=== PATIENT | male | born 1975 | race Hispanic/Latino ===

== ENCOUNTER → 2019-07-15 | Day surgery (SDC) | payer BC ==
[2019-07-14 16:19] LABS: BASOPHILS # (AUTO) 0.1 (0.0-0.1); EOSINOPHILS # (AUTO) 0.3 (0.0-0.4); EOSINOPHILS % 2.8 % (0.0-6.0); HEMATOCRIT 41.6 % (38.2-49.6); LYMPHOCYTES # (AUTO) 3.2 (1.0-3.2); LYMPHOCYTES % 29.5 % (18.0-39.1); MEAN CORPUSCULAR HEMOGLOBIN 28.9 pg (28-32); MEAN CORPUSCULAR HGB CONC 33.7 g/dL (31-35); MONOCYTES # (AUTO) 0.8 (0.2-0.8); MONOCYTES % 6.9 % (4.4-11.3); NEUTROPHILS # (AUTO) 6.5 (2.1-6.9); NEUTROPHILS % 59.5 % (38.7-80.0); PLATELET COUNT 292 x10e3/uL (140-360); RED BLOOD COUNT 4.84 x10e6/uL (4.3-5.7); RED CELL DISTRIBUTION WIDTH 13.2 % (11.7-14.4)
[~2019-07-15] MED LIST: BUPIVACAINE HCL 0.5% INJ 30 ML VIAL INJ ONE; DEXAMETHASONE SOD PHOS INJ 4 MG/ML VIAL ONE; FENTANYL CITRATE/PF 100MCG/2 ML INJ ONE; JARDANCE PO; LANTUS100 UNITS/ SQ; LIDOCAINE HCL 2% LOCAL INJ 5 ML SDV VIAL INJ ONE; METFORMIN HCL1000 MG PO; MIDAZOLAM HCL 2 MG/2 ML VIAL ONE; NEOSTIGMINE 1 MG/ML 10ML VIAL ONE; ONDANSETRON HCL INJ 2MG/ML 2ML 2 MG/ML VIAL ONE; PHENYLEPHRINE HCL 1% 10 MG/ML VIAL ONE; PROPOFOL IV EMULSION 10 MG/ML 20 ML VIAL ONE; SEVOFLURANE INHAL SOLN 250 ML PEN BTL ONE; TYLENOL WITH C1 EACH PO; [UNRECOGNIZED DRUG - REMARK] IV
--- OUTSIDE RECORDS SUMMARY | 2019-07-15 07:21 | XMS REPORT | Summary of Care ---
Author Author [facility] Organization [facility] Address Unknown Phone Unavailable Encounter HQ Encntr_alias(FIN) [id number] Date(s): 08/17/18 - 08/17/18 [facility] [address] [place] [address]- [phone] Discharge Disposition: Home or Self Care Attending Physician: Nato Tejeda MD Referring Physician: Robina Turner MD Vital Signs No data available for this section Problem List Condition Effective Dates Status Health Status Informant Bilateral back Active pain(Confirmed) Diabetes(Confirmed) Resolved Allergies, Adverse Reactions, Alerts Substance Reaction Severity Status NKDA Active Medications No data available for this section Results No data available for this section Immunizations No data available for this section Procedures Procedure Date Related Diagnosis Body Site Status Back fusion Completed Social History Social History Type Response Alcohol Current Smoking Status Current every day smoker; Type: Cigarettes; Exposure to Tobacco Smoke None; Cigarette Smoking Last 365 Days Yes; Reg Smoking Cessation Counseling No entered on: 12/01/18 Assessment and Plan No data available for this section
--- OUTSIDE RECORDS SUMMARY | 2019-07-15 07:21 | XMS REPORT | Continuity of Care Document ---
Author Author [employer] Address Unknown Phone Unavailable Care Team Providers Care Tea And Spice Supervisor Name Role Phone [employer] [facility] Unavailable Unavailable Problems Problem Status Onset Date Classification Date Reported Comments Source On examination - fluid -middle ear 03/18/2018 Diagnosis 03/18/2018 [facility] Nausea 03/18/2018 Diagnosis 03/18/2018 [facility] Acute upper respiratory infection 03/18/2018 Diagnosis 03/18/2018 [facility] Pain in throat 03/18/2018 Diagnosis 03/18/2018 [facility] Influenza due to Influenza virus, type B 03/18/2018 Diagnosis 03/18/2018 [facility] Body mass index 30+ - obesity 03/18/2018 Diagnosis 03/18/2018 [facility] Tobacco user 03/18/2018 Diagnosis 03/18/2018 [facility] Discharge Diagnosis: Abscess 01/29/2017 02/01/2017 [facility] ABSCESS Active 01/29/2017 [facility] Bilateral back pain Active Problem 06/21/2019 [facility] Diabetes Resolved Problem 06/21/2019 [facility] Medications Medication Details Route Status Patient Instructions Ordering Provider Order Date Source amoxicillin 500 mg oral capsule 500 mg=1 cap, PO, BID, 0 Refill(s) Active 12/01/2018 [facility] Acetaminophen 300 MG / Codeine Phosphate 30 MG Oral Tablet [Tylenol with Codeine #3] 1 - 2 tab, PO, Q6H, PRN Pain, X 4 day, # 32 tab, 0 Refill(s) Active 01/29/2017 [facility] Sulfamethoxazole 800 MG / Trimethoprim 160 MG Oral Tablet [Bactrim] 1 tab, PO, BID, X 7 day, # 14 tab, 0 Refill(s) Active 01/29/2017 [facility] Amoxicillin 875 MG / Clavulanate 125 MG Oral Tablet [Augmentin 875-mg] 875 mg=1 tab, PO, Q12H, X 7 day, # 14 tab, 0 Refill(s) Active 01/29/2017 [facility] Marcaine HCl 10 mL, Route: SUB-Q, Dosing Weight 120.455, kg, ONCE, Start date: 01/29/17 2:02:00 BATCH OR CONTINUOUS STILL OPERATOR, Stop date: 01/29/17 2:02:00 BATCH OR CONTINUOUS STILL OPERATOR Inactive 01/29/2017 [facility] Lidocaine 1 %, Route: SUB-Q, ONCE, Dosing Weight 120.455, kg, Start date: 01/29/17 1:57:00 BATCH OR CONTINUOUS STILL OPERATOR, Stop date: 01/29/17 1:57:00 BATCH OR CONTINUOUS STILL OPERATOR Inactive 01/29/2017 [facility] benzonatate 200 MG Oral Capsule benzonatate 200 mg capsule Take 1 capsule 3 times a day by oral route as needed for 10 days. Active [facility] bromphen/pseudoephedrine hcl/dextromethorphan hbr 30-2-10 mg/5ml syrp bromphen/pseudoephedrine hcl/dextromethorphan hbr 30-2-10 mg/5ml syrp Active [facility] Fluticasone propionate 0.05 MG/ACTUAT Metered Dose Nasal [place] fluticasone 50 mcg/actuation nasal spray,suspension [place] 1 spray every 12 hours by intranasal route as directed. Active [facility] novolog flexpen 100 unit/ml sopn novolog flexpen 100 unit/ml sopn Active [facility] Ondansetron 8 MG Disintegrating Oral Tablet ondansetron [address] 1 tablet every 8 hours by translingual route as needed for 2 days. Active [facility] Oseltamivir 75 MG Oral Capsule oseltamivir 75 mg capsule Take 1 capsule twice a day by oral route as directed for 5 days. Active [facility] toujeo solostar 300 unit/ml sopn toujeo solostar 300 unit/ml sopn Active [facility] Allergies, Adverse Reactions, Alerts No Known Medication Allergies Immunizations No Data Provided for This Section Results Order Name Results Value Reference Range Date Interpretation Comments Source Influenza A negative 03/18/2018 [facility] Influenza B positive 03/18/2018 [facility] RESULT negative 03/18/2018 [facility] SWAB LOCATION Left and Right tonsillar pillars 03/18/2018 [facility] Pathology Reports No Data Provided for This Section Diagnostic Reports No Data Provided for This Section Consultation Notes No Data Provided for This Section Discharge Summaries No Data Provided for This Section History and Physicals No Data Provided for This Section Vital Signs Vital Sign Value Date Comments Source BMI Calculated 35.36 12/01/2018 [facility] Height 180.34 cm 12/01/2018 [facility] Weight 115 12/01/2018 [facility] Temperature Oral (F) 97.4 F 12/01/2018 [facility] Heart Rate 102 12/01/2018 [facility] Systolic (mm Hg) 122 12/01/2018 [facility] Diastolic (mm Hg) 79 12/01/2018 [facility] Diastolic (mm Hg) 72 03/18/2018 [facility] Height 71 03/18/2018 [facility] Systolic (mm Hg) 118 03/18/2018 [facility] Weight 252 03/18/2018 [facility] Rate 98 01/29/2017 [facility] Respitory Rate 18 01/29/2017 [facility] Systolic (mm Hg) 127 01/29/2017 [facility] Diastolic (mm Hg) 82 01/29/2017 [facility] Temperature Oral (F) 98.6 F 01/29/2017 [facility] BMI Calculated 37.04 01/29/2017 [facility] Weight 120.455 01/29/2017 [facility] Systolic (mm Hg) 122 01/29/2017 [facility] Diastolic (mm Hg) 77 01/29/2017 [facility] Temperature Oral (F) 98.4 F 01/29/2017 [facility] Respitory Rate 18 01/29/2017 [facility] Heart Rate 107 01/29/2017 [facility] Height 180.34 cm 01/29/2017 [facility] Encounters Location Location Details Encounter Type Encounter Number Reason For Visit Attending Provider ADM Date DC Date Status Source [facility] Emergency [id number] Arsen Sushila 01/29/2017 01/29/2017 [id number] Mary Robins, ASSISTANT MEDIA PLANNER-C: [address] [place] [address], Ph. [id number] Mary Robins 03/18/2018 [facility] Outpatient [id number] [facility] 08/17/2018 Active [facility] Outpatient [id number] [facility] 08/17/2018 08/18/2018 [facility] Phone Message [id number] 10/11/2018 10/13/2018 [facility] Outpatient [id number] NATO ILEANA 12/01/2018 Active Hali Shaver [facility] Outpatient [id number] Nato Ileana 12/01/2018 12/02/2018 [facility] Procedures Procedure Code Date Perfomer Comments Source Back fusion [id number] [facility],ABHINAV Pandey Assessment and Plan No Data Provided for This Section Plan of Care No Data Provided for This Section Social History Social History Date Source Smoking Status Current Some Day Smoker 03/18/2018 [facility] Social History TypeResponse Alcohol Current Smoking Status Current every day smoker; Type: Cigarettes; Exposure to Tobacco Smoke None; Cigarette Smoking Last 365 Days Yes; Reg Smoking Cessation Counseling No entered on: 12/01/18 01/29/2017 [facility] Social History TypeResponse Alcohol Current Smoking Status Current every day smoker; Type: Cigarettes; Exposure to Tobacco Smoke None; Cigarette Smoking Last 365 Days Yes; Reg Smoking Cessation Counseling No 01/29/2017 ABHINAV Pandey Family History No Data Provided for This Section Advance Directives No Data Provided for This Section Functional Status No Data Provided for This Section
--- OUTSIDE RECORDS SUMMARY | 2019-07-15 07:21 | XMS REPORT | Summary of Care ---
Author Author [facility] Organization [facility] Address Unknown Phone Unavailable Encounter HQ Albinor_kerline(FIN) [id number] Date(s): 12/01/18 - 12/01/18 [facility] [address] [place] [address]- [phone] Discharge Disposition: Home or Self Care Attending Physician: Nato Tejeda MD Referring Physician: Robina Turner MD Vital Signs Most recent to 1 oldest [Reference Range]: Height 180.34 cm (12/01/18 1:47 PM) Temperature Oral 97.4 DegF [96.4-99.1 DegF] (12/01/18 1:47 PM) Blood Pressure 122/79 mmHg [90-140/60-90 mmHg] (12/01/18 1:47 PM) Peripheral Pulse 102 bpm Rate [60-100 bpm] *HI* (12/01/18 1:47 PM) Weight 115 kg (12/01/18 1:47 PM) Body Mass Index 35.36 m2 (12/01/18 1:47 PM) Problem List Condition Effective Dates Status Health Status Informant Bilateral back Active pain(Confirmed) Diabetes(Confirmed) Resolved Allergies, Adverse Reactions, Alerts Substance Reaction Severity Status NKDA Active Medications amoxicillin 500 mg oral capsule 500 mg=1 cap, PO, BID, 0 Refill(s) Start Date: 12/01/18 Status: Ordered Results No data available for this section [...]
--- OUTSIDE RECORDS SUMMARY | 2019-07-15 07:21 | XMS REPORT | Summary of Care ---
Author Author [facility] Organization [facility] Address Unknown Phone Unavailable Encounter ROSETTA Mohan(NEGRITO) [id number] Date(s): 01/29/17 - 01/29/17 [facility] [address] [place] [address]- [phone] Discharge Diagnosis: Abscess Discharge Disposition: Home or Self Care Attending Physician: Arsen Conti MD Vital Signs Most recent to 1 2 oldest [Reference Range]: Height 180.34 cm (01/29/17 12:14 AM) Temperature Oral 98.6 DegF 98.4 DegF [96.4-99.1 DegF] (01/29/17 4:09 AM) (01/29/17 12:14 AM) Blood Pressure 127/82 mmHg 122/77 mmHg [90-140/60-90 mmHg] (01/29/17 4:09 AM) (01/29/17 12:14 AM) Respiratory Rate 18 BRMIN 18 BRMIN [14-20 BRMIN] (01/29/17 4:09 AM) (01/29/17 12:14 AM) Peripheral Pulse 98 bpm 107 bpm Rate [60-100 bpm] (01/29/17 4:09 AM) *HI* (01/29/17 12:14 AM) Weight 120.455 kg (01/29/17 12:14 AM) Body Mass Index 37.04 m2 (01/29/17 12:14 AM) Problem List Condition Effective Dates Status Health Status Informant Diabetes(Confirmed) Resolved Allergies, Adverse Reactions, Alerts Substance Reaction Severity Status NKDA Active Medications Augmentin 875 mg oral tablet 875 mg=1 tab, PO, Q12H, X 7 day, # 14 tab, 0 Refill(s) Start Date: 01/29/17 Stop Date: 02/05/17 Status: Ordered Bactrim DS 800 mg- 160 mg oral tablet 1 tab, PO, BID, X 7 day, # 14 tab, 0 Refill(s) Start Date: 01/29/17 Stop Date: 02/05/17 Status: Ordered lidocaine 1 %, Route: SUB-Q, ONCE, Dosing Weight 120.455, kg, Start date: 01/29/17 1:57:00 RESEARCH AND DEVELOPMENT DIRECTOR, Stop date: 01/29/17 1:57:00 RESEARCH AND DEVELOPMENT DIRECTOR Start Date: 01/29/17 Stop Date: 01/29/17 Status: Completed Marcaine HCl 10 mL, Route: SUB-Q, Dosing Weight 120.455, kg, ONCE, Start date: 01/29/17 2:02: 00 RESEARCH AND DEVELOPMENT DIRECTOR, Stop date: 01/29/17 2:02:00 RESEARCH AND DEVELOPMENT DIRECTOR Start Date: 01/29/17 Stop Date: 01/29/17 Status: Completed Tylenol with Codeine #3 oral tablet 1 - 2 tab, PO, Q6H, PRN Pain, X 4 day, # 32 tab, 0 Refill(s) Start Date: 01/29/17 Stop Date: 02/02/17 Status: Ordered Results No data available for this section Immunizations No data available for this section Procedures Procedure Date Related Diagnosis Body Site Back fusion Social History Social History Type Response Alcohol Current Smoking Status Current every day smoker; Type: Cigarettes; Exposure to Tobacco Smoke None; Cigarette Smoking Last 365 Days Yes; Reg Smoking Cessation Counseling No Assessment and Plan No data available for this section
--- OUTSIDE RECORDS SUMMARY | 2019-07-15 07:21 | XMS REPORT | Summary of Care ---
Author Author [facility] Organization [facility] Address Unknown Phone Unavailable Encounter HQ Encntr_alias(FIN) [id number] Date(s): 10/11/18 - 10/12/18 [facility] [address] [place] [address]- [phone] Vital Signs No data available for this [...]
--- OUTSIDE RECORDS SUMMARY | 2019-07-15 07:21 | XMS REPORT | Clinical Summary ---
Author Author [facility] Address Unknown Phone Unavailable Care Team Providers Care Butcher Chicken [employer] Fish Name Role Phone Sharpless PCP Allergies No Known Allergies Medications End Date Status Medication Sig Dispensed Refills Start Date Active metFORMIN (GLUCOPHAGE) Take 1,000 mg 0 1000 MG tablet by mouth 2 (two) times daily with breakfast and dinner. Active Problems Not on file Social History Date Tobacco Use Types Packs/Day Years Used Never Smoker Smokeless Tobacco: Never Used Alcohol Use Drinks/Week oz/Week Comments Yes social Sex Assigned at Date Recorded Not on file Industry Job Start Date Occupation Not on file Not on file Not on file Travel End Travel History Travel Start No recent travel history available. Last Filed Vital Signs Not on file Plan of Treatment Not on file Results Not on fileafter 07/14/2018 Insurance Payer Benefit Subscriber ID Type Phone Address Plan / Group BLUE CROSS/BLUE SHIELD BCBS OS xxxxxxxxxxxxxxx PPO [phone] [address] POS/PPO/[place] [address] O
--- OUTSIDE RECORDS SUMMARY | 2019-07-15 07:21 | XMS REPORT | Encounter Summary ---
Author Organization Unknown Address [address] [place] [address] Phone [phone] Care Team Providers Care Educational Technician Name Role Phone Jesus Carolina MD 3 [phone] Reason for Visit Medical Complaint Instructions 1. Influenza due to Influenza virus, type B rapid flu (A+B) oseltamivir 75 mg capsule benzonatate 200 mg capsule influenza (flu): care instructions 2. Pain in throat rapid strep group A, throat sore throat: care instructions 3. Tobacco user stopping smoking: care instructions 4. Acute upper respiratory infection upper respiratory infection (cold): care instructions 5. Nausea nausea and vomiting: care instructions ondansetron 8 mg disintegrating tablet 6. Body mass index 30+ - obesity learning about obesity body mass index: care instructions 7. On examination - fluid -middle ear fluticasone 50 mcg/actuation nasal spray,suspension Discussion Note: None recorded. Plan of Care Patient Instructions See patient education handout Reminders Provider Appointments None recorded. Lab Rapid Strep Group a, Throat 03/18/2018 [facility] Rapid Flu (A+B) 03/18/2018 [facility] Referral None recorded. Procedures None recorded. Surgeries None recorded. Imaging None recorded. Medications Name Start Date benzonatate 200 mg capsule Take 1 capsule 3 times a day by oral route as needed for 10 days. bromphen/pseudoephedrine hcl/dextromethorphan hbr 30-2-10 mg/5ml syrp fluticasone 50 mcg/actuation nasal spray,suspension [place] 1 spray every 12 hours by intranasal route as directed. novolog flexpen 100 unit/ml sopn ondansetron [address] 1 tablet every 8 hours by translingual route as needed for 2 days. oseltamivir 75 mg capsule Take 1 capsule twice a day by oral route as directed for 5 days. toujeo solostar 300 unit/ml sopn Medications Administered None recorded. Vitals Height Weight BMI Blood Pressure 5 ft 11 in 252 lbs 35.1 kg/m2 118/72 mm[Hg] Lab Results Date Name Specimen Result Interpretation Description Value Range Status Address 03/18/2018 Rapid Flu (A+B) Influenza a negative [facility]: [address] [facility] Influenza B positive [facility]: [address] [facility] Rapid Strep Group a, Throat Result negative [facility]: [address] [facility] Swab Location Left and Right tonsillar pillars [facility]: [facility] Allergies Code Code System Name Reaction Severity Status Onset NKDA Problems None recorded. Procedures None recorded. Vaccine List None recorded. Social History Smoking Status Current Some Day Smoker Past Encounters 03/18/2018 Influenza Due to Influenza Virus, Type B; Pain in Throat; Tobacco User; Acute Upper Respiratory Infection; Nausea; Body Mass Index 30+ - Obesity; On Examination - Fluid -Middle Ear Mary Robins, SIXTH GRADE TEACHER-C: [address] [place] [address], Ph. History of Present Illness [id number] Reported By: Patient HPI: Location: head/sinuses, throat. Quality: sore throat, dry cough. Duration: 2days. Severity: moderate, pain level 5/10. Onset/Timing: gradual. Context: no foreign travel, sick contact, smoker. Modifying factors: OTC medication. Associated Symptoms: no sputum production, no shortness of breath, no wheezing, no change in number of pillows needed to sleep at night, no significant weight gain, no significant weight loss, no diarrhea, no rash, sweats, sore throat, vomiting, nausea, fever, muscle aches, headache Review of Systems:ROS as noted in the HPI Review of Systems Basic Reported By: Patient Physical Exam Adult Basic, Adult Female Complete, Adult Male Complete Reported By: Patient Constitutional: General Appearance: healthy-appearing, well-nourished, well-developed. Level of Distress: NAD. Ambulation: ambulating normally Psychiatric: Mental Status: active and alert. Orientation: to time, to place, to person Poc-Xmxr-Nfobk-Throat: Ears: no lesions on external ear, no outer ear tenderness, middle ear fluid. Hearing: no hearing loss. Nose: no lesions on external nose, no septal deviation, nasal obstruction, nasal discharge--rhinorrhea, post nasal drip. Oropharynx: moist mucous membranes, no exudates, erythema, tonsils enlarged 1+ Neck: Neck: supple, trachea midline, no masses, FROM. Lymph Nodes: no cervical LAD Lungs: Respiratory effort: no dyspnea, no tachypnea, no use of accessory muscles, no intercostal retractions. Auscultation: breath sounds normal Cardiovascular: Heart Auscultation: RRR, no murmurs Neurologic: Gait and Station: normal gait, normal station
--- OUTSIDE RECORDS SUMMARY | 2019-07-15 07:22 | XMS REPORT ---
Author [facility] Address Unknown Phone Unavailable Care Team Providers Care Senior Water Resources Engineer Name Role Phone SHYAM TORRES Unavailable Unavailable Payers Payer Name Policy Type Policy Number Effective Date Expiration Date Problems This patient has no known problems. Allergies, Adverse Reactions, Alerts Allergy Name Allergy Type Status Severity Reaction(s) Onset Date Inactive Date Treating Clinician Comments No Known Allergies DA Active U 2019-06-24 00:00:00 Medications This patient has no known medications. Results Test Description Test Time Test Comments Text Results Atomic Results Result Comments GLUBED 2019-07-06 16:40:00 GLUBED (test code=GLUBED) 203 mg/dL 74-106 Performed by certified heater operator helper at [facility] [id number] 12:26:00* Test Item Value Reference Range Comments GLUBED (test code=GLUBED) 116 mg/dL 74-106 [facility] [id number] 08:35:00* Test Item Value Reference Range Comments GLUBED (test code=GLUBED) 124 mg/dL 74-106 [facility] BASIC METABOLIC [id number] 07:09:00* Test Item Value Reference Range Comments SODIUM (test code=NA) 141 mmol/L 136-145 POTASSIUM (test code=K) 4.8 mmol/L 3.5-5.1 CHLORIDE (test code=CL) 102.0 mmol/L 98-107 CARBON DIOXIDE (test code=CO2) 31.0 mmol/L 21-32 ANION GAP (test code=GAP) 12.8 10-20 GLUCOSE (test code=GLU) 160 mg/dL 74-106 BLOOD UREA NITROGEN (test code=BUN) 27 mg/dL 7-18 GLOMERULAR FILTRATION RATE (test code=GFR) > 60 mL/min >=60 Estimated GFR by using Modified MDRD formula.Chronic kidney disease is defined as either kidney damageor GFR <60 mL/min/1.73 m2 for >3 months. CREATININE (test code=CREAT) 1.20 mg/dL 0.7-1.3 BUN/CREATININE RATIO (test code=BUN/CREA) 22.5 10-20 CALCIUM (test code=CA) 9.0 mg/dL 8.5-10.1 BASIC METABOLIC [id number] 07:03:00* Test Item Value Reference Range Comments SODIUM (test code=NA) 141 mmol/L 136-145 POTASSIUM (test code=K) 4.8 mmol/L 3.5-5.1 CHLORIDE (test code=CL) 102.0 mmol/L 98-107 CARBON DIOXIDE (test code=CO2) mmol/L 21-32 ANION GAP (test code=GAP) 10-20 GLUCOSE (test code=GLU) mg/dL 74-106 BLOOD UREA NITROGEN (test code=BUN) mg/dL 7-18 GLOMERULAR FILTRATION RATE (test code=GFR) mL/min >=60 CREATININE (test code=CREAT) mg/dL 0.7-1.3 BUN/CREATININE RATIO (test code=BUN/CREA) 10-20 CALCIUM (test code=CA) mg/dL 8.5-10.1 CBC W/AUTO [id number] 05:54:00* Test Item Value Reference Range Comments WHITE BLOOD CELL (test code=WBC) 10.0 K/mm3 4.5-12.5 RED BLOOD CELL (test code=RBC) 4.63 mill/mm3 4.0-5.8 HEMOGLOBIN (test code=HGB) 13.1 gram/dL 13.0-17.5 HEMATOCRIT (test code=HCT) 40.1 % 42.0-52.0 MEAN CELL VOLUME (test code=MCV) 86.6 fL 80-98 MEAN CELL HGB (test code=MCH) 28.3 picogram 27.0-33.0 MEAN CELL HGB CONCETRATION (test code=MCHC) 32.7 gram/dL 33.0-36.0 RED CELL DISTRIBUTION WIDTH (test code=RDW) 12.7 % 11.6-16.2 RED CELL DISTRIBUTION WIDTH SD (test code=RDW-SD) 39.8 fL 37.0-51.0 PLATELET COUNT (test code=PLT) 312 K/mm3 150-450 MEAN PLATELET VOLUME (test code=MPV) 10.9 fL 6.7-11.0 NEUTROPHIL % (test code=NT%) 54.4 % 39.0-69.0 IMMATURE GRANULOCYTE % (test code=IG%) 0.4 % 0.0-5.0 LYMPHOCYTE % (test code=LY%) 34.1 % 25.0-55.0 MONOCYTE % (test code=MO%) 6.9 % 0.0-10.0 EOSINOPHIL % (test code=EO%) 3.1 % 0.0-5.0 BASOPHIL % (test code=BA%) 1.1 % 0.0-1.0 NUCLEATED RBC % (test code=NRBC%) 0.0 % 0-0 NEUTROPHIL # (test code=NT#) 5.43 K/mm3 1.8-7.7 IMMATURE GRANULOCYTE # (test code=IG#) 0.04 x10 3/uL 0-0.03 LYMPHOCYTE # (test code=LY#) 3.40 K/mm3 1.0-5.0 MONOCYTE # (test code=MO#) 0.69 K/mm3 0-0.8 EOSINOPHIL # (test code=EO#) 0.31 K/mm3 0.0-0.5 BASOPHIL # (test code=BA#) 0.11 K/mm3 0.0-0.2 NUCLEATED RBC # (test code=NRBC#) 0.00 K/mm3 0.0-0.1 MANUAL DIFF REQUIRED (test code=MDIFF) NO [id number] 20:44:00* Test Item Value Reference Range Comments GLUBED (test code=GLUBED) 107 mg/dL 74-106 Performed by certified heater operator helper at [facility] [id number] 16:30:00* Test Item Value Reference Range Comments GLUBED (test code=GLUBED) 117 mg/dL 74-106 [facility] [id number] 12:13:00* Test Item Value Reference Range Comments GLUBED (test code=GLUBED) 117 mg/dL 74-106 [facility] [id number] 08:24:00* Test Item Value Reference Range Comments GLUBED (test code=GLUBED) 108 mg/dL 74-106 [facility] [id number] 20:13:00* Test Item Value Reference Range Comments GLUBED (test code=GLUBED) 120 mg/dL 74-106 Performed by certified heater operator helper at [facility] [id number] 16:16:00* Test Item Value Reference Range Comments GLUBED (test code=GLUBED) 144 mg/dL 74-106 Performed by certified heater operator helper at [facility] [id number] 12:02:00* Test Item Value Reference Range Comments GLUBED (test code=GLUBED) 139 mg/dL 74-106 Performed by certified heater operator helper at [facility] [id number] 08:04:00* Test Item Value Reference Range Comments GLUBED (test code=GLUBED) 117 mg/dL 74-106 Performed by certified heater operator helper at [facility] [id number] 19:47:00* Test Item Value Reference Range Comments GLUBED (test code=GLUBED) 108 mg/dL 74-106 Performed by certified heater operator helper at [facility] [id number] 16:54:00* Test Item Value Reference Range Comments GLUBED (test code=GLUBED) 115 mg/dL 74-106 Performed by certified heater operator helper at [facility] [id number] 12:24:00* Test Item Value Reference Range Comments GLUBED (test code=GLUBED) 158 mg/dL 74-106 Performed by certified heater operator helper at [facility] [id number] 08:01:00* Test Item Value Reference Range Comments GLUBED (test code=GLUBED) 126 mg/dL 74-106 Performed by certified heater operator helper at [facility] [id number] 05:42:00* Test Item Value Reference Range Comments GLUBED (test code=GLUBED) 186 mg/dL 74-106 [facility] [id number] 05:42:00* Test Item Value Reference Range Comments GLUBED (test code=GLUBED) 136 mg/dL 74-106 Performed by certified heater operator helper at [facility] [id number] 12:17:00* Test Item Value Reference Range Comments GLUBED (test code=GLUBED) 172 mg/dL 74-106 Performed by certified heater operator helper at [facility] [id number] 09:17:00* Test Item Value Reference Range Comments GLUBED (test code=GLUBED) 128 mg/dL 74-106 Performed by certified heater operator helper at [facility] [id number] 20:56:00* Test Item Value Reference Range Comments GLUBED (test code=GLUBED) 178 mg/dL 74-106 [facility] [id number] 17:30:00* Test Item Value Reference Range Comments GLUBED (test code=GLUBED) 129 mg/dL 74-106 Performed by certified heater operator helper at [facility] [id number] 17:30:00* Test Item Value Reference Range Comments GLUBED (test code=GLUBED) 125 mg/dL 74-106 Performed by certified heater operator helper at [facility] CBC W/AUTO [id number] 17:15:00* Test Item Value Reference Range Comments WHITE BLOOD CELL (test code=WBC) 11.8 K/mm3 4.5-12.5 RED BLOOD CELL (test code=RBC) 4.61 mill/mm3 4.0-5.8 HEMOGLOBIN (test code=HGB) 13.1 gram/dL 13.0-17.5 HEMATOCRIT (test code=HCT) 39.5 % 42.0-52.0 MEAN CELL VOLUME (test code=MCV) 85.7 fL 80-98 MEAN CELL HGB (test code=MCH) 28.4 picogram 27.0-33.0 MEAN CELL HGB CONCETRATION (test code=MCHC) 33.2 gram/dL 33.0-36.0 RED CELL DISTRIBUTION WIDTH (test code=RDW) 12.4 % 11.6-16.2 RED CELL DISTRIBUTION WIDTH SD (test code=RDW-SD) 38.0 fL 37.0-51.0 PLATELET COUNT (test code=PLT) 331 K/mm3 150-450 MEAN PLATELET VOLUME (test code=MPV) 10.1 fL 6.7-11.0 NEUTROPHIL % (test code=NT%) 65.9 % 39.0-69.0 IMMATURE GRANULOCYTE % (test code=IG%) 1.1 % 0.0-5.0 LYMPHOCYTE % (test code=LY%) 23.5 % 25.0-55.0 MONOCYTE % (test code=MO%) 5.2 % 0.0-10.0 EOSINOPHIL % (test code=EO%) 3.3 % 0.0-5.0 BASOPHIL % (test code=BA%) 1.0 % 0.0-1.0 NUCLEATED RBC % (test code=NRBC%) 0.0 % 0-0 NEUTROPHIL # (test code=NT#) 7.78 K/mm3 1.8-7.7 IMMATURE GRANULOCYTE # (test code=IG#) 0.13 x10 3/uL 0-0.03 LYMPHOCYTE # (test code=LY#) 2.78 K/mm3 1.0-5.0 MONOCYTE # (test code=MO#) 0.62 K/mm3 0-0.8 EOSINOPHIL # (test code=EO#) 0.39 K/mm3 0.0-0.5 BASOPHIL # (test code=BA#) 0.12 K/mm3 0.0-0.2 NUCLEATED RBC # (test code=NRBC#) 0.00 K/mm3 0.0-0.1 MANUAL DIFF REQUIRED (test code=MDIFF) NO [id number] 10:06:00* Test Item Value Reference Range Comments GLUBED (test code=GLUBED) 132 mg/dL 74-106 Performed by certified heater operator helper at [facility] [id number] 20:09:00* Test Item Value Reference Range Comments GLUBED (test code=GLUBED) 164 mg/dL 74-106 Performed by certified heater operator helper at [facility] [id number] 17:03:00* Test Item Value Reference Range Comments GLUBED (test code=GLUBED) 146 mg/dL 74-106 Performed by certified heater operator helper at [facility] [id number] 12:14:00* Test Item Value Reference Range Comments GLUBED (test code=GLUBED) 158 mg/dL 74-106 Performed by certified heater operator helper at [facility] [id number] 08:12:00* Test Item Value Reference Range Comments GLUBED (test code=GLUBED) 156 mg/dL 74-106 Performed by certified heater operator helper at [facility] [id number] 20:16:00* Test Item Value Reference Range Comments GLUBED (test code=GLUBED) 116 mg/dL 74-106 Performed by certified heater operator helper at [facility] [id number] 16:30:00* Test Item Value Reference Range Comments GLUBED (test code=GLUBED) 159 mg/dL 74-106 [facility] [id number] 12:23:00* Test Item Value Reference Range Comments GLUBED (test code=GLUBED) 126 mg/dL 74-106 Performed by certified heater operator helper at [facility] [id number] 08:17:00* Test Item Value Reference Range Comments GLUBED (test code=GLUBED) 125 mg/dL 74-106 [facility] BASIC METABOLIC [id number] 06:30:00* Test Item Value Reference Range Comments SODIUM (test code=NA) 140 mmol/L 136-145 POTASSIUM (test code=K) 4.1 mmol/L 3.5-5.1 CHLORIDE (test code=CL) 104.0 mmol/L 98-107 CARBON DIOXIDE (test code=CO2) 31.0 mmol/L 21-32 ANION GAP (test code=GAP) 9.1 10-20 GLUCOSE (test code=GLU) 114 mg/dL 74-106 BLOOD UREA NITROGEN (test code=BUN) 15 mg/dL 7-18 GLOMERULAR FILTRATION RATE (test code=GFR) > 60 mL/min >=60 Estimated GFR by using Modified MDRD formula.Chronic kidney disease is defined as either kidney damageor GFR <60 mL/min/1.73 m2 for >3 months. CREATININE (test code=CREAT) 0.90 mg/dL 0.7-1.3 BUN/CREATININE RATIO (test code=BUN/CREA) 16.1 10-20 CALCIUM (test code=CA) 9.0 mg/dL 8.5-10.1 BASIC METABOLIC [id number] 06:23:00* Test Item Value Reference Range Comments SODIUM (test code=NA) 140 mmol/L 136-145 POTASSIUM (test code=K) 4.1 mmol/L 3.5-5.1 CHLORIDE (test code=CL) 104.0 mmol/L 98-107 CARBON DIOXIDE (test code=CO2) mmol/L 21-32 ANION GAP (test code=GAP) 10-20 GLUCOSE (test code=GLU) mg/dL 74-106 BLOOD UREA NITROGEN (test code=BUN) mg/dL 7-18 GLOMERULAR FILTRATION RATE (test code=GFR) mL/min >=60 CREATININE (test code=CREAT) mg/dL 0.7-1.3 BUN/CREATININE RATIO (test code=BUN/CREA) 10-20 CALCIUM (test code=CA) mg/dL 8.5-10.1 CBC W/AUTO [id number] 06:06:00* Test Item Value Reference Range Comments WHITE BLOOD CELL (test code=WBC) 11.8 K/mm3 4.5-12.5 RED BLOOD CELL (test code=RBC) 4.30 mill/mm3 4.0-5.8 HEMOGLOBIN (test code=HGB) 12.1 gram/dL 13.0-17.5 HEMATOCRIT (test code=HCT) 37.3 % 42.0-52.0 MEAN CELL VOLUME (test code=MCV) 86.7 fL 80-98 MEAN CELL HGB (test code=MCH) 28.1 picogram 27.0-33.0 MEAN CELL HGB CONCETRATION (test code=MCHC) 32.4 gram/dL 33.0-36.0 RED CELL DISTRIBUTION WIDTH (test code=RDW) 12.6 % 11.6-16.2 RED CELL DISTRIBUTION WIDTH SD (test code=RDW-SD) 39.8 fL 37.0-51.0 PLATELET COUNT (test code=PLT) 315 K/mm3 150-450 MEAN PLATELET VOLUME (test code=MPV) 10.5 fL 6.7-11.0 NEUTROPHIL % (test code=NT%) 67.2 % 39.0-69.0 IMMATURE GRANULOCYTE % (test code=IG%) 0.6 % 0.0-5.0 LYMPHOCYTE % (test code=LY%) 21.8 % 25.0-55.0 MONOCYTE % (test code=MO%) 6.0 % 0.0-10.0 EOSINOPHIL % (test code=EO%) 3.5 % 0.0-5.0 BASOPHIL % (test code=BA%) 0.9 % 0.0-1.0 NUCLEATED RBC % (test code=NRBC%) 0.0 % 0-0 NEUTROPHIL # (test code=NT#) 7.93 K/mm3 1.8-7.7 IMMATURE GRANULOCYTE # (test code=IG#) 0.07 x10 3/uL 0-0.03 LYMPHOCYTE # (test code=LY#) 2.58 K/mm3 1.0-5.0 MONOCYTE # (test code=MO#) 0.71 K/mm3 0-0.8 EOSINOPHIL # (test code=EO#) 0.41 K/mm3 0.0-0.5 BASOPHIL # (test code=BA#) 0.11 K/mm3 0.0-0.2 NUCLEATED RBC # (test code=NRBC#) 0.00 K/mm3 0.0-0.1 MANUAL DIFF REQUIRED (test code=MDIFF) NO [id number] 20:48:00* Test Item Value Reference Range Comments GLUBED (test code=GLUBED) 190 mg/dL 74-106 Performed by certified heater operator helper at [facility] [id number] 16:44:00* Test Item Value Reference Range Comments GLUBED (test code=GLUBED) 120 mg/dL 74-106 Performed by certified heater operator helper at [facility] - [facility] G[facility] [id number] 13:50:00 Name: CHIQUIS DICKSON [facility] : 1975 Age/S: 44 / M [address] [facility] Unit #: [id number] Loc: ELAINA Yanez [address] Phys: Mohsen Ferrell MD Acct: [id number] Dis Date: Status: ADM IN PHONE #: [phone] Exam Date: 06/27/2019 1213 FAX #: [phone] Reason: / EXAMS: CPT CODE: [id number] US GUIDANCE VASC ACCESS 92709 Fluoro Time: DAP (Gy m2): Air Kerma (mGy): EXAM: PICC with sonographic and fluoroscopic guidance; CPT: 56372, 61447, 00939; CLINICAL INFORMATION: Cellulitis left foot; PROCEDURE AND FINDINGS: After obtaining informed consent the patient was placed supine on the procedure table and the left arm was prepped and draped in the usual sterile fashion, applying all elements of maximal sterile barrier technique. Ultrasound of the left arm demonstrated a patent and compressible basilic vein. Sonographic images were stored in PACS. Xylocaine was administered and the left basilic vein was accessed with a micropuncture system, using sonographic guidance, followed by insertion of an 018 guidewire and a 5 Austrian peel-away sheath. Under fluoroscopic guidance the guidewire was advanced into the right atrium. A dual-lumen PICC line was inserted and positioned with its tip at the SVC/right atrial junction. Good blood return was noticed; the PICC line was sutured to the skin and was flushed with heparinized saline. No complications. IMPRESSION: Successful insertion of a left arm PICC line, using sonographic and fluoroscopic guidance. Fluoroscopy Time: 21 sec CAK : 3 mGy DAP : 1340 mGy sq cm at 1350 Reported and signed by: Cristino Walters M.D. CC: Mohsen Ferrell Technologist: Jolynn Ortiz [employer] Date/Time: 06/28/2019 (1036) Solomon Orig Print D/T: S: 06/28/2019 (5519) PAGE 1 Signed Report - SP FLUORO GUID CTRL ACC [id number] 13:50:00 Name: CHIQUSI DICKSON [facility] : 1975 Age/S: 44 / M [address] [facility] Unit #: [id number] Loc: ELAINA Yanez [address] Phys: Mohsen Ferrell MD Acct: [id number] Dis Date: Status: ADM IN PHONE #: [phone] Exam Date: 06/27/2019 1218 FAX #: [phone] Reason: / EXAMS: CPT CODE: [id number] SP FLUORO GUID CTRL ACC DEV [id number] Fluoro Time: 21 DAP (Gy m2): 1.34 Air Kerma (mGy): 3 EXAM: PICC with sonographic and fluoroscopic guidance; CPT: 87192, 34611, 40886; CLINICAL INFORMATION: Cellulitis left foot; PROCEDURE AND FINDINGS: After obtaining informed consent the patient was placed supine on the procedure table and the left arm was prepped and draped in the usual sterile fashion, applying all elements of maximal sterile barrier technique. Ultrasound of the left arm demonstrated a patent and compressible basilic vein. Sonographic images were stored in PACS. Xylocaine was administered and the left basilic vein was accessed with a micropuncture system, using sonographic guidance, followed by insertion of an 018 guidewire and a 5 Austrian peel-away sheath. Under fluoroscopic guidance the guidewire was advanced into the right atrium. A dual-lumen PICC line was inserted and positioned with its tip at the SVC/right atrial junction. Good blood return was noticed; the PICC line was sutured to the skin and was flushed with heparinized saline. No complications. IMPRESSION: Successful insertion of a left arm PICC line, using sonographic and fluoroscopic guidance. Fluoroscopy Time: 21 sec CAK : 3 mGy DAP : 1340 mGy sq cm at 1350 Reported and signed by: Cristino Walters M.D. CC: Mohsen Ferrell Technologist: Jolynn Ortiz [facility] Date/Time: 06/28/2019 (1650) Solmoon Orig Print D/T: S: 06/28/2019 (0878) PAGE 1 Signed Report GLUBED 2019-06-28 12:01:00* Test Item Value Reference Range Comments GLUBED (test code=GLUBED) 131 mg/dL 74-106 Performed by certified heater operator helper at [facility] [id number] 08:23:00* Test Item Value Reference Range Comments GLUBED (test code=GLUBED) 157 mg/dL 74-106 [facility] [id number] 21:16:00* Test Item Value Reference Range Comments GLUBED (test code=GLUBED) 156 mg/dL 74-106 Performed by certified heater operator helper at [facility] [id number] 17:17:00* Test Item Value Reference Range Comments GLUBED (test code=GLUBED) 172 mg/dL 74-106 [facility] [id number] 14:36:00* Test Item Value Reference Range Comments GLUBED (test code=GLUBED) 199 mg/dL 74-106 Performed by certified heater operator helper at [facility] [id number] 08:26:00* Test Item Value Reference Range Comments GLUBED (test code=GLUBED) 208 mg/dL 74-106 [facility] [id number] 20:29:00* Test Item Value Reference Range Comments GLUBED (test code=GLUBED) 153 mg/dL 74-106 Performed by certified heater operator helper at [facility] [id number] 16:33:00* Test Item Value Reference Range Comments GLUBED (test code=GLUBED) 204 mg/dL 74-106 Performed by certified heater operator helper at [facility] [id number] 13:19:00* Test Item Value Reference Range Comments GLUBED (test code=GLUBED) 146 mg/dL 74-106 Performed by certified heater operator helper at [facility] [id number] 11:49:00* Test Item Value Reference Range Comments GLUBED (test code=GLUBED) 157 mg/dL 74-106 Performed by certified heater operator helper at [facility] [id number] 08:32:00* Test Item Value Reference Range Comments GLUBED (test code=GLUBED) 128 mg/dL 74-106 Performed by certified heater operator helper at [facility] [id number] 20:09:00* Test Item Value Reference Range Comments GLUBED (test code=GLUBED) 196 mg/dL 74-106 Performed by certified heater operator helper at [facility] [id number] 16:07:00* Test Item Value Reference Range Comments GLUBED (test code=GLUBED) 157 mg/dL 74-106 Performed by certified heater operator helper at [facility] - MRI LOW EXT W WO CONT [id number] 11:56:00 FAX: Mohsen Dumont MD [phone] [place]: St: ADM Name: CHIQUIS TIRADO [facility] : [birth year] Age/S: 44/M [address] [facility] Unit #: [id number] Loc: V.4036 [place] [address] Phys: Mohsen Ferrell MD Acct: [id number] Dis Date: Status: ADM IN PHONE #: [phone] Exam Date: 06/25/2019 1000 FAX #: [phone] Reason: LEFT FOOT CELLULITIS EXAMS: CPT CODE: [id number] [place] [address] HISTORY: Left foot cellulitis TECHNIQUE: Sagittal T1, sagittal STIR, axial T1, axial T2 fat-sat, coronal T2, and coronal STIR sequences of the left foot were acquired w ithout contrast. COMPARISON: None FINDINGS: There is increased T2 signal of the subcutaneous soft tissues of the foot that is most pronounced along the dorsal and lateral aspects. No rim- enhancing fluid collection is seen. There is also increased T2 si gnal and mildly decreased T1 signal of the marrow throughout the fifth met atarsal involving the head and the shaft of the fifth metatarsal. This are a demonstrates contrast enhancement. These findings are compatible with os teomyelitis. No abnormal signal intensity of the fifth digit however. No abnormal marrow enhancement in the rest of the foot. There are intertarsal degenerative changes present. IMPRESSION: Cellulitis of the soft tissues in the dorsal and lateral left foot but no rim-enhancing fluid collection is seen. Abnormal sig nal intensity involving the head and shaft of the fifth metatarsal phillip tible with osteomyelitis. No abnormal signal intensity in the fifth toe at this time. No abnormal signal intensity in the remainder of the bones at the time of this exam. at 1156 Reported and signed by: Kt Mckeon MD CC: Mohsen Ferrell Technolog ist: JESSICA LANDRY,RT - MRI Trnscrd Date/Time/By : 06/25/2019 (1156) : By: [id number] Orig Print D/T: S: 06/25/2019 ( 9) PAGE 1 Signed Report [id number] 11:29:00* Test Item Value Reference Range Comments GLUBED (test code=GLUBED) 197 mg/dL 74-106 Performed by certified heater operator helper at [facility] [id number] 07:53:00* Test Item Value Reference Range Comments GLUBED (test code=GLUBED) 144 mg/dL 74-106 Performed by certified heater operator helper at [facility] SED RATE [id number] 21:15:00* Test Item Value Reference Range Comments SED RATE WESTERGREN (test code=SEDW) 98 mm/hr 0-15 SED [id number] 21:15:00* Test Item Value Reference Range Comments SED RATE (test code=SEDW) 98 mm/hr 0-15 WINTROBE METHOD: NORMAL RANGE FOR MEN: 0-9 MM/HR WOMAN: 0-20 MM/HR [id number] 21:04:00* Test Item Value Reference Range Comments GLYCOSYLATED HEMOGLOBIN (HA1C) (test code=GLYHGB) 8.0 % HbA1 4.8-6.0 ESTIMATED AVERAGE GLUCOSE (test code=EAG) 183 MG/DL [id number] 21:03:00* Test Item Value Reference Range Comments GLUBED (test code=GLUBED) 183 mg/dL 74-106 Performed by certified heater operator helper at [facility] COMPREHENSIVE METABOLIC [id number] 18:37:00* Test Item Value Reference Range Comments SODIUM (test code=NA) 136 mmol/L 136-145 POTASSIUM (test code=K) 3.6 mmol/L 3.5-5.1 CHLORIDE (test code=CL) 102.0 mmol/L 98-107 CARBON DIOXIDE (test code=CO2) 30.0 mmol/L 21-32 ANION GAP (test code=GAP) 7.6 10-20 GLUCOSE (test code=GLU) 158 mg/dL 74-106 BLOOD UREA NITROGEN (test code=BUN) 20 mg/dL 7-18 GLOMERULAR FILTRATION RATE (test code=GFR) > 60 mL/min >=60 Estimated GFR by using Modified MDRD formula.Chronic kidney disease is defined as either kidney damageor GFR <60 mL/min/1.73 m2 for >3 months. CREATININE (test code=CREAT) 1.00 mg/dL 0.7-1.3 BUN/CREATININE RATIO (test code=BUN/CREA) 20.3 10-20 TOTAL PROTEIN (test code=PROT) 8.9 gram/dL 6.4-8.2 ALBUMIN (test code=ALB) 3.3 g/dL 3.4-5.0 GLOBULIN (test code=GLOB) 5.6 gram/dL 2.7-4.2 ALBUMIN/GLOBULIN RATIO (test code=A/G) 0.6 0.75-1.50 CALCIUM (test code=CA) 9.3 mg/dL 8.5-10.1 BILIRUBIN TOTAL (test code=BILT) 0.40 mg/dL 0.0-1.0 SGOT/AST (test code=AST) 15 IUnit/L 15-37 SGPT/ALT (test code=ALT) 33 IUnit/L 12-78 ALKALINE PHOSPHATASE TOTAL (test code=ALKP) 109 IUnit/L 45-117 Note change in reference range due to change in reagent. C REACTIVE [id number] 18:37:00* Test Item Value Reference Range Comments C REACTIVE PROTEIN (test code=CRP) 18.10 mg/dL 0-0.3 COMPREHENSIVE METABOLIC [id number] 18:31:00* Test Item Value Reference Range Comments SODIUM (test code=NA) 136 mmol/L 136-145 POTASSIUM (test code=K) 3.6 mmol/L 3.5-5.1 CHLORIDE (test code=CL) 102.0 mmol/L 98-107 CARBON DIOXIDE (test code=CO2) mmol/L 21-32 ANION GAP (test code=GAP) 10-20 GLUCOSE (test code=GLU) mg/dL 74-106 BLOOD UREA NITROGEN (test code=BUN) mg/dL 7-18 GLOMERULAR FILTRATION RATE (test code=GFR) mL/min >=60 CREATININE (test code=CREAT) mg/dL 0.7-1.3 BUN/CREATININE RATIO (test code=BUN/CREA) 10-20 TOTAL PROTEIN (test code=PROT) gram/dL 6.4-8.2 ALBUMIN (test code=ALB) g/dL 3.4-5.0 GLOBULIN (test code=GLOB) gram/dL 2.7-4.2 ALBUMIN/GLOBULIN RATIO (test code=A/G) 0.75-1.50 CALCIUM (test code=CA) mg/dL 8.5-10.1 BILIRUBIN TOTAL (test code=BILT) mg/dL 0.0-1.0 SGOT/AST (test code=AST) IUnit/L 15-37 SGPT/ALT (test code=ALT) IUnit/L 12-78 ALKALINE PHOSPHATASE TOTAL (test code=ALKP) IUnit/L 45-117 CBC W/AUTO [id number] 18:11:00* Test Item Value Reference Range Comments WHITE BLOOD CELL (test code=WBC) 15.6 K/mm3 4.5-12.5 RED BLOOD CELL (test code=RBC) 4.61 mill/mm3 4.0-5.8 HEMOGLOBIN (test code=HGB) 13.1 gram/dL 13.0-17.5 HEMATOCRIT (test code=HCT) 39.5 % 42.0-52.0 MEAN CELL VOLUME (test code=MCV) 85.7 fL 80-98 MEAN CELL HGB (test code=MCH) 28.4 picogram 27.0-33.0 MEAN CELL HGB CONCETRATION (test code=MCHC) 33.2 gram/dL 33.0-36.0 RED CELL DISTRIBUTION WIDTH (test code=RDW) 12.4 % 11.6-16.2 RED CELL DISTRIBUTION WIDTH SD (test code=RDW-SD) 38.4 fL 37.0-51.0 PLATELET COUNT (test code=PLT) 298 K/mm3 150-450 MEAN PLATELET VOLUME (test code=MPV) 10.9 fL 6.7-11.0 NEUTROPHIL % (test code=NT%) 76.7 % 39.0-69.0 IMMATURE GRANULOCYTE % (test code=IG%) 0.4 % 0.0-5.0 LYMPHOCYTE % (test code=LY%) 13.0 % 25.0-55.0 MONOCYTE % (test code=MO%) 7.3 % 0.0-10.0 EOSINOPHIL % (test code=EO%) 2.2 % 0.0-5.0 BASOPHIL % (test code=BA%) 0.4 % 0.0-1.0 NUCLEATED RBC % (test code=NRBC%) 0.0 % 0-0 NEUTROPHIL # (test code=NT#) 11.98 K/mm3 1.8-7.7 IMMATURE GRANULOCYTE # (test code=IG#) 0.07 x10 3/uL 0-0.03 LYMPHOCYTE # (test code=LY#) 2.04 K/mm3 1.0-5.0 MONOCYTE # (test code=MO#) 1.14 K/mm3 0-0.8 EOSINOPHIL # (test code=EO#) 0.34 K/mm3 0.0-0.5 BASOPHIL # (test code=BA#) 0.07 K/mm3 0.0-0.2 NUCLEATED RBC # (test code=NRBC#) 0.00 K/mm3 0.0-0.1 MANUAL DIFF REQUIRED (test code=MDIFF) NO CBC W/AUTO [id number] 18:01:00* Test Item Value Reference Range Comments WHITE BLOOD CELL (test code=WBC) K/mm3 4.5-12.5 RED BLOOD CELL (test code=RBC) mill/mm3 4.0-5.8 HEMOGLOBIN (test code=HGB) 13.1 gram/dL 13.0-17.5 HEMATOCRIT (test code=HCT) % 42.0-52.0 MEAN CELL VOLUME (test code=MCV) fL 80-98 MEAN CELL HGB (test code=MCH) picogram 27.0-33.0 MEAN CELL HGB CONCETRATION (test code=MCHC) gram/dL 33.0-36.0 RED CELL DISTRIBUTION WIDTH (test code=RDW) % 11.6-16.2 RED CELL DISTRIBUTION WIDTH SD (test code=RDW-SD) fL 37.0-51.0 PLATELET COUNT (test code=PLT) K/mm3 150-450 MEAN PLATELET VOLUME (test code=MPV) fL 6.7-11.0 NEUTROPHIL % (test code=NT%) % 39.0-69.0 IMMATURE GRANULOCYTE % (test code=IG%) % 0.0-5.0 LYMPHOCYTE % (test code=LY%) % 25.0-55.0 MONOCYTE % (test code=MO%) % 0.0-10.0 EOSINOPHIL % (test code=EO%) % 0.0-5.0 BASOPHIL % (test code=BA%) % 0.0-1.0 NEUTROPHIL # (test code=NT#) K/mm3 1.8-7.7 LYMPHOCYTE # (test code=LY#) K/mm3 1.0-5.0 MONOCYTE # (test code=MO#) K/mm3 0-0.8 EOSINOPHIL # (test code=EO#) K/mm3 0.0-0.5 BASOPHIL # (test code=BA#) K/mm3 0.0-0.2 [id number] 17:35:00* Test Item Value Reference Range Comments GLUBED (test code=GLUBED) 182 mg/dL 74-106 Performed by certified heater operator helper at [facility] COMPREHENSIVE METABOLIC [id number] 03:04:00* Test Item Value Reference Range Comments TOTAL PROTEIN (BEAKER) (test uawz=353) 7.7 gm/dL 6.0-8.5 ALBUMIN (BEAKER) (test gycf=6396) 3.5 g/dL 3.5-5.0 ALKALINE PHOSPHATASE (BEAKER) (test cyba=502) 148 U/L 30-115 BILIRUBIN TOTAL (BEAKER) (test rjhz=117) 0.6 mg/dL 0.1-1.2 SODIUM (BEAKER) (test mutg=367) 135 meq/L 135-148 POTASSIUM (BEAKER) (test wubq=782) 4.2 meq/L 3.6-5.5 CHLORIDE (BEAKER) (test xhkr=115) 96 meq/L 98-106 CO2 (BEAKER) (test dvgw=562) 23 meq/L 24-32 BLOOD UREA NITROGEN (BEAKER) (test rtsk=503) 17 mg/dL 10-26 CREATININE (BEAKER) (test unyo=095) 0.74 mg/dL 0.50-1.20 GLUCOSE RANDOM (BEAKER) (test vmfd=911) 353 mg/dL 70-110 CALCIUM (BEAKER) (test idhx=416) 9.1 mg/dL 8.5-10.5 AST (SGOT) (BEAKER) (test ngcj=754) 19 U/L 5-40 ALT (SGPT) (BEAKER) (test eusq=989) 40 U/L 5-50 EGFR (BEAKER) (test sfcy=9146) mL/min/1.73 sq m INSUFFICIENT CLINICAL DATA TO CALCULATE ESTIMATED GFR. LACTIC ACID, VENOUS, WHOLE [id number] 03:00:00* Test Item Value Reference Range Comments LACTATE BLOOD VENOUS (2) (BEAKER) (test mwti=8407) 1.4 mmol/L 0.5-2.2 Effective 04/02/2016: Units/Reference Range ChangeNew: 0.5-2.2 mmol/L Previous: 5 -18 mg/dLCBC W/PLT COUNT & AUTO [id number] 02:56:00* Test Item Value Reference Range Comments WHITE BLOOD CELL COUNT (BEAKER) (test jffg=310) 15.5 10e3/ L 4.0-10.0 RED BLOOD CELL COUNT (BEAKER) (test gqpl=801) 4.78 10e6/ L 4.20-5.80 HEMOGLOBIN (BEAKER) (test lndy=922) 13.6 g/dL 13.0-16.8 HEMATOCRIT (BEAKER) (test qbqd=054) 40.4 % 40.0-50.0 MEAN CORPUSCULAR VOLUME (BEAKER) (test ywld=297) 84.4 fL 82.0-98.0 MEAN CORPUSCULAR HEMOGLOBIN (BEAKER) (test rgpa=449) 28.4 pg 27.0-33.0 MEAN CORPUSCULAR HEMOGLOBIN CONC (BEAKER) (test qnpy=668) 33.6 g/dL 32.0-36.0 RED CELL DISTRIBUTION WIDTH (BEAKER) (test cuoi=075) 12.1 % 10.3-14.2 PLATELET COUNT (BEAKER) (test ykfa=385) 317 10e3/ L 150-430 MEAN PLATELET VOLUME (BEAKER) (test jmcc=343) 8.5 fL 6.5-10.5 NEUTROPHILS RELATIVE PERCENT (BEAKER) (test gvcq=730) 72 % LYMPHOCYTES RELATIVE PERCENT (BEAKER) (test cxel=446) 15 % MONOCYTES RELATIVE PERCENT (BEAKER) (test wwpg=525) 9 % EOSINOPHILS RELATIVE PERCENT (BEAKER) (test auxe=255) 3 % BASOPHILS RELATIVE PERCENT (BEAKER) (test dvbl=780) 1 % NEUTROPHILS ABSOLUTE COUNT (BEAKER) (test pmgx=956) 11.21 10e3/ L 1.80-8.00 LYMPHOCYTES ABSOLUTE COUNT (BEAKER) (test klav=804) 2.34 10e3/ L 1.48-4.50 MONOCYTES ABSOLUTE COUNT (BEAKER) (test xvyu=818) 1.38 10e3/ L 0.00-1.30 EOSINOPHILS ABSOLUTE COUNT (BEAKER) (test ojkt=500) 0.40 10e3/ L 0.00-0.50 BASOPHILS ABSOLUTE COUNT (BEAKER) (test anwa=727) 0.15 10e3/ L 0.00-0.20
[2019-07-15 11:15] VITALS: BP 100/70
--- NOTE | 2019-07-15 18:03 | Operative Report ---
DATE OF PROCEDURE: 07/15/2019 SURGEON: Vijay Conrad DPM PREOPERATIVE DIAGNOSIS: Osteomyelitis 5th metatarsal, left foot and digital gangrene, 5th digit, left foot. POSTOPERATIVE DIAGNOSIS: Osteomyelitis 5th metatarsal left foot and digital gangrene, 5th digit, left foot. TITLE OF THE OPERATION: Amputation 5th digit and metatarsal left foot. ANESTHESIA: General endotracheal. HEMOSTASIS: A left thigh tourniquet at 350 mmHg. PROCEDURE IN DETAIL: The patient was taken to the operating room in a mildly sedated state and placed on the operating table in supine position. Following induction of general anesthetic, the left lower extremity was elevated and placed on the operating table prior to performing the following procedure: No tourniquet was used and a hockey stick shaped incision was made overlying the 5th metatarsal and circumferentially around the 5th digit is irrigated with copious amounts of sterile saline solution. A significant portion of the necrotic tissue had previously been debrided from the dorsum of the foot and there was exposed bone at the 5th met head as well as the 5th digit. The entire complex was sent to pathology for further evaluation. Areas of bleeding, both superficial and deep, were addressed with electrocautery and absorbable suture. The area of bone infection was cultured. The base of the 5th metatarsal midshaft having thus been sectioned in a transverse, slightly oblique fashion was covered with human tissue allograft. Deep closure was 3-0 Vicryl, subcutaneous closure with 4-0 Vicryl and skin closure 4-0 nylon. The distal aspect of the incision where the previous 5th digit had been amputated was packed open with half-inch iodoform gauze. The appropriate mildly compressive dressings were applied. No tourniquet had been used and the area was blocked with 0.5 Marcaine. The patient left the operating room, vital signs stable in apparent satisfactory condition having tolerated both the anesthetic and procedure very well. ZOE Miranda/ABRAN /[id number]
== END | disposition home or self-care (01) ==
LOC: OR 07:06
PROVIDERS: ATTEND Podiatrist Foot Surgery
DX: M86.672 Other chronic osteomyelitis, left ankle and foot (principal); I96 Gangrene, not elsewhere classified; E11.9 Type 2 diabetes mellitus without complications; F17.210 Nicotine dependence, cigarettes, uncomplicated; Z01.810 Encounter for preprocedural cardiovascular examination; Z01.812 Encounter for preprocedural laboratory examination; Z79.84 Long term (current) use of oral hypoglycemic drugs
CPT/HCPCS: 28810; 36415 ×2; 76000; 82948; 85025; 87071; 87075; 87205; 88305; 88311; 93005; J2001; J2250; J2370; J2405; J2704; J2710; J3010; 88304; J1100; Q4100

== ENCOUNTER 2019-12-27 11:14 | Inpatient (IN) | payer OTHER ==
[~2019-12-27] VITALS: Ht 180.3 cm; Wt 115.2 kg
[~2019-12-27 11:14] MED LIST changes: -BUPIVACAINE HCL 0.5% INJ 30 ML VIAL INJ ONE; -DEXAMETHASONE SOD PHOS INJ 4 MG/ML VIAL ONE; -FENTANYL CITRATE/PF 100MCG/2 ML INJ ONE; -LIDOCAINE HCL 2% LOCAL INJ 5 ML SDV VIAL INJ ONE; -MIDAZOLAM HCL 2 MG/2 ML VIAL ONE; -NEOSTIGMINE 1 MG/ML 10ML VIAL ONE; -ONDANSETRON HCL INJ 2MG/ML 2ML 2 MG/ML VIAL ONE; -PHENYLEPHRINE HCL 1% 10 MG/ML VIAL ONE; -PROPOFOL IV EMULSION 10 MG/ML 20 ML VIAL ONE; -SEVOFLURANE INHAL SOLN 250 ML PEN BTL ONE
[2019-12-27 12:45] VITALS: BP 125/77
--- NOTE | 2019-12-27 12:45 | NUR ---
Pt was a direct admit at this time from Dr. Bestneys office. He was admitted for right foot wound. Pt is aox4 and able to verbalize. Dr. Ferrell and Dr. Monzon have been consulted on his case. 0 s/s of acute distress noted. Pt denies any pain at this time.
[2019-12-27] MEDS ORDERED: MAGNESIUM HYDROXIDE 30 ML UDC PO PRN (13:00)
[2019-12-27] MEDS ORDERED: BISMUTH SUBSALICYLATE 262 MG/15 ML 8OZ BTL PO PRN (13:00)
[2019-12-27] MEDS ORDERED: ONDANSETRON HCL INJ 2MG/ML 2ML 2 MG/ML VIAL IV PRN (13:00)
[2019-12-27 13:25] VITALS: BP 125/77
[2019-12-27] MEDS: HYDROCODONE/APAP 5MG-325MG TAB PO PRN ×3 (13:41→22:00)
[2019-12-27 14:16] LABS: BASOPHILS # (AUTO) 0.1 (0.0-0.1); BASOPHILS % 0.5 % (0.0-1.0); EOSINOPHILS # (AUTO) 0.2 (0.0-0.4); EOSINOPHILS % 1.6 % (0.0-6.0); HEMATOCRIT 49.2 % (38.2-49.6); HEMOGLOBIN 16.4 g/dL (14.0-18.0); LYMPHOCYTES # (AUTO) 2.2 (1.0-3.2); LYMPHOCYTES % 16.9 % (18.0-39.1); MEAN CORPUSCULAR HEMOGLOBIN 28.3 pg (28-32); MEAN CORPUSCULAR HGB CONC 33.3 g/dL (31-35); MONOCYTES # (AUTO) 0.9 (0.2-0.8); MONOCYTES % 7.2 % (4.4-11.3); NEUTROPHILS # (AUTO) 9.6 (2.1-6.9); NEUTROPHILS % 73.3 % (38.7-80.0); PLATELET COUNT 271 x10e3/uL (140-360); RED BLOOD COUNT 5.79 x10e6/uL (4.3-5.7); RED CELL DISTRIBUTION WIDTH 13.2 % (11.7-14.4)
[2019-12-27] MEDS ORDERED: JARDIANCE25 MG PO (14:37)
[2019-12-27 14:38] LABS: ALBUMIN 3.9 g/dL (3.5-5.0); ALBUMIN/GLOBULIN RATIO 0.8 (0.8-2.0); ANION GAP 17.3 mmol/L (8-16); CALCIUM 9.8 mg/dL (8.4-10.2); CREATININE, SERUM 1.3 mg/dL (0.72-1.25); POTASSIUM 4.3 mmol/L (3.5-5.1)
[2019-12-27] MEDS ORDERED: VANCOMYCIN 1GM/NS 250 ML 250 ML IV SCH ×2 (15:15→16:00)
[2019-12-27] MEDS ORDERED: CEFTRIAXONE SOD 1 GM VIAL IV SCH (15:15)
[2019-12-27 16:00] VITALS: BP 120/73
--- NOTE | 2019-12-27 16:13 | Diagnostic Imaging Report ---
TECHNIQUE: Magnetic resonance imaging of the RIGHT foot was performed WITHOUT injected contrast. HISTORY: Right foot pain COMPARISON: None available. DISCUSSION: Bone marrow edema within the proximal and middle phalanx of the third toe. The remainder of the bone marrow signal is normal. Edema of the foot musculature. No soft tissue abscess. IMPRESSION: Osteomyelitis of the proximal and middle phalanx of the third toe Signed by: Dr. Nick Ordonez M.D. on 12/27/2019 4:10 PM
--- NOTE | 2019-12-27 16:24 | Diagnostic Imaging Report ---
EXAMINATION: FOOT RIGHT COMPLETE INDICATION: Right foot wound COMPARISON: Right foot MRI same day FINDINGS: No acute fracture or dislocation. No specific evidence of osteomyelitis. Mild scattered degenerative changes. Mild Achilles enthesopathy. Atherosclerotic arterial vascular calcifications. IMPRESSION: No specific radiographic evidence of osteomyelitis. MRI is more sensitive for detection of osteomyelitis. Please refer to the report of the dedicated MRI of the right foot of the same day. Signed by: Kenya Allan MD on 12/27/2019 4:21 PM
[2019-12-27] MEDS ORDERED: SODIUM CHLORIDE 0.9% 250ML 250 ML ONE (17:26)
[2019-12-27] MEDS: CEFTRIAXONE SOD 1 GM/NS 50 ML 50 ML IV SCH (17:27)
[2019-12-27] MEDS: MUPIROCIN 2% OINT 22 GM TUBE TOP SCH (17:28)
[2019-12-27] MEDS ORDERED: PIPER-TAZ 3.375 GM 50 ML IV SCH (18:00)
--- NOTE | 2019-12-27 19:00 | NUR ---
RECEIVED BEDSIDE SHIFT REPORT FROM PREVIOUS NURSE. CALL LIGHT WITHIN REACH. PATIENT IN BED. PATIENT IS A&OX3 AND AMBULATES
[2019-12-27 20:00] VITALS: BP 99/69
--- NOTE | 2019-12-27 21:29 | Consultation ---
DATE OF CONSULTATION: 12/27/2019 REASON FOR CONSULTATION: Right foot 3rd toe infection and osteomyelitis, recommendation antibiotic. HISTORY OF PRESENT ILLNESS: This patient is a very pleasant 44-year-old male with history of diabetes mellitus, history of obesity, history of neuropathy, history of osteomyelitis of the left foot, status post amputation of the left 5th toe, who comes in with redness, swelling and ulcer noted on the right 3rd toe on the foot, which he had for a few weeks. Does not recall any specific trauma. The patient is being admitted. Infectious Disease was asked to see the patient. He is currently lying in bed comfortably. PAST MEDICAL HISTORY: Diabetes mellitus, neuropathy, osteomyelitis of the foot, obesity. PAST SURGICAL HISTORY: Amputation of the left 5th toe. ALLERGIES: NKA. SOCIAL HISTORY: There is no smoking, drug abuse, or alcohol abuse. FAMILY HISTORY: Diabetes mellitus. MEDICATIONS: He is currently on [place] and Zosyn. LABORATORY DATA: White count is 13.05, hemoglobin 16. Sodium 133, potassium 4.3, creatinine 1.3. PHYSICAL EXAMINATION: GENERAL: He is currently alert, oriented, does not seem in acute distress. VITAL SIGNS: Stable currently, afebrile. HEENT: He is not icteric. NECK: Supple. CHEST: Clear. COR: S1 and S2. ABDOMEN: Soft. No tenderness. No hepatomegaly. EXTREMITIES: On 3rd toe, there is redness and swollen. IMPRESSION: 1. Infection of the foot, 3rd toe, concerned about osteomyelitis. 2. Diabetes mellitus. 3. Chronic kidney disease. 4. Neuropathy. Agree with Zosyn. We will add vancomycin at renal dose. Agree with MRI with no contrast. We will change the Zosyn to Rocephin for better kidney protection. We will follow. MD MARIIA Geller/ABRAN /[id number]
[2019-12-28] VITALS (9 sets, daily range): BP systolic 108–121; BP diastolic 64–75
--- NOTE | 2019-12-28 06:30 | NUR ---
CHANGED PATIENT'S DRESSING ON RIGHT FOOT
--- NOTE | 2019-12-28 07:16 | NUR ---
GAVE BEDSIDE SHIFT REPORT TO ONCOMING NURSE. CALL LIGHT WITHIN REACH. PATIENT IN BED. PATIENT IS A&OX3 AND AMBULATES
[2019-12-28 07:47] LABS: CHOL/HDL RATIO 5.6 (3.9-4.7)
[2019-12-28] MEDS: MUPIROCIN 2% OINT 22 GM TUBE TOP SCH ×2 (09:00→17:46)
[2019-12-28] MEDS: HYDROCODONE/APAP 5MG-325MG TAB PO PRN ×2 (09:12→21:04)
--- NOTE | 2019-12-28 13:00 | NUR ---
LATE ENTRY CHANGED DRESSING TO RIGHT FOOT CLEANED WITH NORMAL SALINE BACTROBAN APPLIED, GAUZE, KERLEX AND WINTER WRAP. PATIENT TOLERATED WITHOUT C/O DISCOMFORT
--- NOTE | 2019-12-28 13:37 | Diagnostic Imaging Report ---
EXAMINATION: CHEST SINGLE (PORTABLE) INDICATION: Line placement COMPARISON: None FINDINGS: LINES/TUBES:Left PICC line terminates in the superior vena cava. LUNGS:The lungs are well-inflated. No focal consolidation or pulmonary edema. PLEURA:No pleural effusion or pneumothorax. MEDIASTINUM:The cardiomediastinal silhouette appears normal in size and shape. BONES/SOFT TISSUES:No acute osseous injury. ABDOMEN:No free air under the diaphragm. IMPRESSION: Left PICC line terminates in the superior vena cava. No focal pneumonia or pulmonary edema. Signed by: Kenya Allan MD on 12/28/2019 1:34 PM
--- NOTE | 2019-12-28 14:13 | History and Physical ---
CHIEF COMPLAINT: The patient is a 44-year-old male who comes in with erythema, tenderness, and pain in the right 3rd toe. HISTORY OF PRESENTING ILLNESS: Mr. Guanako Rodgers with a history of osteomyelitis in the past in the left little toe, status post amputation, was in usual state of health until about 2-3 weeks prior to admission when the patient noticed a blister in the 3rd toe, did not have any feeling to it, but eventually the blister broke and the patient had some ulceration in there, did go and see Dr. Conrad and was started on p.o. antibiotics. The patient is not getting any better. MRI of the toe was done, showed to have osteomyelitis. The patient was admitted for long-term antibiotics. PAST MEDICAL HISTORY: History of hypertension, history of diabetes mellitus. MEDICINES: He takes at home are codeine as needed, Jardiance 25 mg, and also aspirin as needed. PAST SURGICAL HISTORY: History of low back surgery, history of left little toe amputation, and L4-5 laminectomy as mentioned. SOCIAL HISTORY: No EtOH. No IV drug abuse. No history of smoking. FAMILY HISTORY: Positive for diabetes and hypertension. REVIEW OF SYSTEMS: Negative for chest pain. No shortness of breath. No nausea, vomiting, or diarrhea. No constipation. No rectal bleeding. No hematochezia. No hematemesis. No diplopia. No blurry vision. No hyperesthesias. No paresthesias. Positive for decreased sensation in lower extremities. PHYSICAL EXAMINATION: VITAL SIGNS: Temperature is 97.1, pulse of 93, respirations of 18, blood pressure is 108/64, pulse oximetry of 93% on room air. HEENT: Normocephalic, atraumatic. Pupils reactive to light and accommodation. CVS: S1 and S2 normal. Regular rate and rhythm. ABDOMEN: Nontender, nondistended. EXTREMITIES: Positive for varicose vein. Right lower extremity, 3rd toe with ulceration on the lateral side. Positive for erythema, positive for bloody discharge, and the patient has bone involvement too. Pulses decreased and sensation decreased in bilateral lower extremities. LABORATORY VALUES: White count is 13,000, hemoglobin 16.4. ESR was 68. Chemistry shows sodium 143, potassium 4.3, creatinine is 1.30, BUN of 24, glucose is in the 170s. IMAGING STUDIES: Foot MRI shows osteomyelitis of the proximal middle phalanx of the 3rd toe. ASSESSMENT: Mr. Guanako Rodgers with: 1. Uncontrolled diabetes. 2. Osteomyelitis of the right foot, 3rd toe. 3. History of obesity. PLAN: 1. Continue with IV antibiotics. The patient has been started on vancomycin q.24h. and also Rocephin q.24h. The patient is currently on hydrocodone for pain management. We will go ahead and start him on insulin sliding scale. 2. Restart his Jardiance if possible. 3. Check his LDL. 4. Arterial Dopplers. 5. ADA diet. 6. Continue monitoring blood sugars and put him on insulin sliding scale. Further recommendation per clinical course. We will continue to monitor the patient. Options have been given to the patient including amputation and 6 weeks of IV antibiotics. PICC line will be placed if the second option has been chosen by the patient. MD KANDICE Krishnamurthy/MODL /[id number]
[2019-12-28] MEDS: INSULIN LISPRO 100 UNIT/1 ML 3ML VIAL SQ SCH ×4 (15:32→20:07)
[2019-12-28] MEDS: DAPTOMYCIN 500mg 10ML 500 MG in SODIUM CHLORIDE 0.9% 100 ML IV SCH (15:32)
[2019-12-28] MEDS: CEFTRIAXONE SOD 1 GM/NS 50 ML 50 ML IV SCH (15:58)
--- NOTE | 2019-12-28 18:55 | NUR ---
RECEIVED BEDSIDE SHIFT FROM PREVIOUS NURSE. CALL LIGHT WITHIN REACH. PATIENT IN BED. PATIENT IN NO PAIN OR DISTRESS.
--- NOTE | 2019-12-28 20:45 | Consultation ---
DATE OF CONSULTATION: 12/28/2019 CHIEF COMPLAINT AND HISTORY OF CHIEF COMPLAINT: Mr. Rodgers is a most pleasant 44-year-old gentleman, well known to me from the hospital treatment and subsequent followup from a severe infection of his left foot last year. The patient ultimately suffered an amputation of the left 5th digit metatarsal due to severe and extreme osteomyelitis of the left foot. The patient has undergone a normal course of healing and was doing well with increased activity level and the appropriate off loads in bilateral shoes. He presented to the office yesterday with a new ulceration of the right 3rd toe, has a medial ulceration measuring 2 cm x 1 cm x 1 cm deep. The patient stated that it had been present for the last several weeks and he had presented to the emergency room last week, was given oral antibiotics, local wound care and told to follow this week. PAST MEDICAL HISTORY: The patient's previous medical history is positive for diabetes. He has neuropathy, osteomyelitis of the foot, and obesity. PAST SURGICAL HISTORY: Includes amputation of the 5th toe and metatarsal of the left foot. ALLERGIES: NO KNOWN DRUG ALLERGIES. SOCIAL HISTORY: The patient is a nonsmoker. He denies a history of drug abuse or alcohol abuse. FAMILY HISTORY: Positive for diabetes. MEDICATIONS: Currently [place] and Zosyn. LABORATORY DATA: The patient's laboratory data shows an elevated white count at 13.05. PHYSICAL EXAMINATION: EXTREMITIES: Physical evaluation of lower extremity vascular status, the patient has a mildly palpable pedal pulse, both dorsalis pedis or posterior tibial. Skin temperature is warm and capillary refill is well within normal limits. NEUROLOGICAL: He appears to have a loss of protective sensation as evidenced by [place] monofilament testing. DERMATOLOGICAL: There is the aforementioned ulceration, which is quite significant and extends to the capsular structures with exposed capsule and tendon of the 3rd toe on the right foot. IMAGING DATA: Radiographs showed no obvious osteomyelitis; however, MRI is positive for osteomyelitis of both the proximal and the intermediate phalanx of the 3rd toe on the right foot. The patient is currently stable and on IV antibiotics and local wound care with Bactroban and dry gauze. Cultures of the wound have been obtained, but are as yet not available. DIAGNOSIS: Osteomyelitis, 3rd toe, right foot. RECOMMENDATIONS: Dr. Monzon has evaluated this patient and adjusted the antibiotics discontinuing Zosyn and adding Rocephin for better kidney protection. He did add vancomycin at renal dosing as well. The MRI being positive, we will need to follow with a minimum of 6 to 8 weeks of IV antibiotics. Local wound care will continue and recommend a debridement in the OR. Rather than an amputation, we will do a deep wound debridement and scrape the underlying bone obtaining a solid bone culture. This will be scheduled at the patient's earliest convenience pending medical clearance. ZOE Miranda/ABRAN /[id number]
--- NOTE | 2019-12-28 21:05 | NUR ---
CHANGED PATIENT'S DRESSING AND APPLIED BACTROBAN TO THE WOUND.
[2019-12-29] VITALS (11 sets, daily range): BP systolic 99–153; BP diastolic 56–94
[2019-12-29 05:06] LABS: BASOPHILS # (AUTO) 0.1 (0.0-0.1); BASOPHILS % 0.5 % (0.0-1.0); EOSINOPHILS # (AUTO) 0.2 (0.0-0.4); EOSINOPHILS % 1.9 % (0.0-6.0); HEMATOCRIT 42.1 % (38.2-49.6); HEMOGLOBIN 14.2 g/dL (14.0-18.0); LYMPHOCYTES # (AUTO) 2.4 (1.0-3.2); MEAN CORPUSCULAR HEMOGLOBIN 28.3 pg (28-32); MEAN CORPUSCULAR HGB CONC 33.7 g/dL (31-35); MONOCYTES % 7.4 % (4.4-11.3); NEUTROPHILS # (AUTO) 9.1 (2.1-6.9); NEUTROPHILS % 70.9 % (38.7-80.0); PLATELET COUNT 250 x10e3/uL (140-360); RED BLOOD COUNT 5.01 x10e6/uL (4.3-5.7); RED CELL DISTRIBUTION WIDTH 12.9 % (11.7-14.4)
[2019-12-29 05:36] LABS: CHOL/HDL RATIO 4.9 (3.9-4.7)
--- NOTE | 2019-12-29 07:00 | NUR ---
LATE ENTRY:BEDSIDE SHIFT REPORT RECEIVED FROM THE PREVIOUS SHIFT RN. EDUCATED PT ABOUT FALL PRECAUTIONS. CALL LIGHT WITH IN EASY REACH. INSTRUCTED PT TO USE CALL LIGHT FOR ALL THE NEEDS. PT VERBALIZED UNDERSTANDING. BED ALARM IS ON. BED IS LOW AND LOCKED. SIDE RAILS X2. PT STATES HE DID NOT HAVE A GOOD NIGHT R/T PAINFUL FOOT AND LEG
--- NOTE | 2019-12-29 07:17 | NUR ---
GAVE BEDSIDE SHIFT REPORT TO ONCOMING NURSE. CALL LIGHT WITHIN REACH. PATIENT IN BED. PATIENT IS A&OX3 AND AMBULATES
[2019-12-29] MEDS: INSULIN LISPRO 100 UNIT/1 ML 3ML VIAL SQ SCH ×4 (07:30→20:50)
[2019-12-29] MEDS: HYDROCODONE/APAP 5MG-325MG TAB PO PRN ×3 (08:51→20:50)
--- NOTE | 2019-12-29 09:21 | Progress Note ---
DATE: 12/29/2019 SUBJECTIVE: A 44-year-old gentleman with history of diabetic foot ulcer with osteomyelitis of the foot. Currently, the patient is complaining of pain which is throbbing, scheduled for a debridement and biopsy tomorrow by Dr. Conrad. The patient is currently on daptomycin and Rocephin. Changed from yesterday from Rocephin and vancomycin. Currently, also complaining of some leg cramping. Dopplers were done and also PICC line was inserted yesterday. OBJECTIVE: VITAL SIGNS: Temperature is 97.8, pulse of 99, respirations , blood pressure is 99/56, pulse ox 100%. HEENT: Normocephalic and atraumatic. Pupils reactive to light and accommodation. CVS: S1 and S2 normal. Regular rate and rhythm. ABDOMEN: Nontender and nondistended. EXTREMITIES: No clubbing, no cyanosis, decreased edema on the right side, bandaged, decreased pulses. LABORATORY VALUES: From today white count is 12,000. Chemistries, LDL was 124. ASSESSMENT: Mr. Guanako Rodgers with: 1. Osteomyelitis of the right foot. 2. Diabetes with diabetic foot ulcer. 3. Hypertension. 4. Obesity. 5. Hyperlipidemia. PLAN: Continue on antibiotics, debridement for tomorrow. Arterial Dopplers are not read yet, we will follow through. Start the patient on atorvastatin 40 mg at bedtime. Continue monitoring his pressures. Further recommendation per clinical course. We will continue to monitor the patient along with consultants. MD KANDICE Krishnamurthy/MODL /[id number]
[2019-12-29] MEDS: DAPTOMYCIN 500mg 10ML 500 MG in SODIUM CHLORIDE 0.9% 100 ML IV SCH (10:21)
[2019-12-29] MEDS: MUPIROCIN 2% OINT 22 GM TUBE TOP SCH ×2 (10:53→17:00)
[2019-12-29] MEDS: CEFTRIAXONE SOD 1 GM/NS 50 ML 50 ML IV SCH (15:15)
[2019-12-29] MEDS ORDERED: ONDANSETRON HCL 4 MG ORAL DISINTEGRATING TAB PO PRN (16:30)
--- NOTE | 2019-12-29 16:44 | Progress Note ---
DATE: 12/29/2019 The patient is seen today for surgical consent for surgery tomorrow. The third toe on the right foot has continued to demarcate and actually looks worse today than it did yesterday. The osteomyelitis is present by MRI read and the open wound is still draining. There is a proximal extension on the dorsum of the foot with erythema and cellulitis. No obvious abscess was seen on the MRI. However, the continued demarcation with a dusky darkened purplish discoloration of the third toe has me concerned. The original plan for bone debridement and culture may not be adequate. After discussion with the patient, we have added possible amputation of the third digit of the right toe to be performed tomorrow where and all devitalized tissue including possible amputation of third toe of right foot will be removed due to further demarcation and proximal and lateral spread of infection despite IV antibiotics and local wound care. The patient has agreed to accept the risks inherent to the procedure. He will remain n.p.o. after midnight tonight for surgery tomorrow morning. ZOE Miranda/ABRAN /[id number]
--- NOTE | 2019-12-29 19:05 | NUR ---
RECEIVED BEDSIDE SHIFT REPORT FROM PREVIOUS NURSE. CALL LIGHT WITHIN REACH. PATIENT WALKING AROUND THE ROOM
[2019-12-29] MEDS: ATORVASTATIN 20 MG TAB PO SCH (20:46)
[2019-12-30] VITALS (11 sets, daily range): BP systolic 112–130; BP diastolic 70–82
--- NOTE | 2019-12-30 01:53 | NUR ---
BEEN DOING HOURLY ROUNDING THROUGHOUT THE SHIFT. PATIENT IS ASLEEP IN THE BED. NO PAIN OR DISTRESS. CALL LIGHT WITHIN REACH. AT BEDSIDE. PATIENT IS A&OX3 AND AMBULATES
[2019-12-30] MEDS: HYDROCODONE/APAP 5MG-325MG TAB PO PRN ×2 (02:58→21:55)
--- NOTE | 2019-12-30 07:13 | NUR ---
GAVE BEDSIDE SHIFT REPORT TO ONCOMING NURSE. CALL LIGHT WITHIN REACH. PATIENT IN BED. AT BEDSIDE. PATIENT IS A&OX3 AND AMBULATES.
[2019-12-30] MEDS: INSULIN LISPRO 100 UNIT/1 ML 3ML VIAL SQ SCH ×4 (07:30→21:20)
--- NOTE | 2019-12-30 08:30 | NUR ---
AT BEDSIDE. LEFT FOR OR
[2019-12-30] MEDS: MUPIROCIN 2% OINT 22 GM TUBE TOP SCH ×2 (09:00→15:44)
[2019-12-30] MEDS ORDERED: BACITRACIN 50,000 UNIT VIAL ONE (09:27)
[2019-12-30] MEDS ORDERED: NEOSTIGMINE 1 MG/ML 10ML VIAL ONE (09:27)
[2019-12-30] MEDS: DAPTOMYCIN 500mg 10ML 500 MG in SODIUM CHLORIDE 0.9% 100 ML IV SCH (10:00)
--- NOTE | 2019-12-30 10:59 | NUR ---
BACK FROM OR IN [facility] IN NO C.O. PAIN DRESSING TO RIGHT FOOT CDI EATING AND DRINKING IN ROOM
[2019-12-30] MEDS: CEFTRIAXONE SOD 1 GM/NS 50 ML 50 ML IV SCH (16:11)
--- NOTE | 2019-12-30 18:10 | Operative Report ---
DATE OF PROCEDURE: 12/30/2019 SURGEON: Vijay Conrad DPM ROOM NUMBER: #[id number], [facility]. PREOPERATIVE DIAGNOSIS: Osteomyelitis, 3rd toe, right foot with abscess cellulitis. POSTOPERATIVE DIAGNOSIS: Osteomyelitis, 3rd toe, right foot with abscess cellulitis. TITLE OF OPERATION: Amputation 3rd toe, right foot and metatarsal head, right foot. We will also do bone culture and deep wound debridement. ANESTHESIA: General endotracheal. HEMOSTASIS: A right thigh tourniquet at 350 mmHg. PROCEDURE IN DETAIL: The patient was taken to the operating room in a mildly sedated state and placed up on the operating table in supine position. Following induction of general anesthetic, the right lower extremity was elevated to 60 degrees to exsanguinate before inflating the pneumatic thigh tourniquet. At 350 mmHg hemostasis, right lower extremity was placed up on the operating table prior to performing the following procedure. Procedure #1: Amputation of 3rd digit, right foot. A two converging semi-elliptical incisions were made hockey-stick shape overlying the 3rd metatarsal head and encircling the 3rd digit. Incision was deepened via sharp and blunt dissection onto the level of the capsular structure. There was a fair amount of james colored and purulent exudate surrounding the joint itself proximally. The bone of the toe was also draining significantly. The toe was disarticulated and removed. The met head was removed as well. All surrounding necrotic tissue were debrided from the wound. The area was irrigated with copious amounts of sterile saline solution. Bone cultures and deep wound cultures were obtained. Closure overlying the amputation stump was 3-0 Vicryl, 4-0 nylon. The distal end where the digit had been disarticulated was packed open with quarter-inch iodoform gauze. The patient tolerated both anesthetic and procedure very well. Tourniquet was up for 15 minutes without complication. Once released, adequate bleeding was noted prior to performing the appropriately applied dressings. The patient is to proceed to the PACU and then be readmitted to the floor. ZOE Miranda/ABRAN /[id number]
[2019-12-30] MEDS ORDERED: ONDANSETRON HCL INJ 2MG/ML 2ML 2 MG/ML VIAL ONE (18:33)
[2019-12-30] MEDS ORDERED: PROPOFOL IV EMULSION 10 MG/ML 20 ML VIAL ONE (18:33)
[2019-12-30] MEDS ORDERED: SEVOFLURANE INHAL SOLN 250 ML PEN BTL ONE (18:33)
[2019-12-30] MEDS ORDERED: DEXAMETHASONE SOD PHOS INJ 4 MG/ML VIAL ONE (18:33)
[2019-12-30] MEDS ORDERED: KETOROLAC TROMETHAMINE 30 MG/ML VIAL ONE (18:33)
[2019-12-30] MEDS: ATORVASTATIN 20 MG TAB PO SCH (21:33)
--- NOTE | 2019-12-30 22:51 | Progress Note ---
DATE: 12/30/2019 SUBJECTIVE: A 44-year-old male, who comes in with osteomyelitis of the right toe and the patient is status post amputation today. Continues on antibiotics, Rocephin and daptomycin. The patient is also pain-free. No chest pain or shortness of breath. No nausea, vomiting, or diarrhea. OBJECTIVE: VITAL SIGNS: Temperature is 97.3, pulse of 81, respirations of 20, blood pressure is 130/71. HEENT: Normocephalic and atraumatic. Pupils are reactive to light and accommodation. CVS: S1 and S2 normal. Regular rate and rhythm. ABDOMEN: Nontender and nondistended. EXTREMITIES: No clubbing, no cyanosis, no edema. The patient has amputation of the left 5th toe and status post amputation of the right second toe. ASSESSMENT: Mr. Guanako Rodgers with: 1. Osteomyelitis of the toe and the patient is status post amputation of 3rd toe metatarsal head. 2. Uncontrolled diabetes mellitus. Continue with insulin sliding scale. 3. Hyperlipidemia. Continue on statins. PLAN: Continue to monitor the patient, continue on antibiotic, and we will follow the patient along with consultants. ADA diet and also insulin sliding scale for diabetes. Mohsen Ferrell MD ASJ/MODL /[id number]
[2019-12-31] VITALS (7 sets, daily range): BP systolic 114–140; BP diastolic 67–84
[2019-12-31] MEDS: INSULIN LISPRO 100 UNIT/1 ML 3ML VIAL SQ SCH ×4 (07:30→21:00)
[2019-12-31] MEDS: MUPIROCIN 2% OINT 22 GM TUBE TOP SCH ×2 (08:05→17:17)
[2019-12-31] MEDS: DAPTOMYCIN 500mg 10ML 500 MG in SODIUM CHLORIDE 0.9% 100 ML IV SCH (10:00)
[2019-12-31] MEDS ORDERED: SODIUM CHLORIDE 0.9% 250ML 250 ML ONE (12:02)
[2019-12-31] MEDS: HYDROCODONE/APAP 5MG-325MG TAB PO PRN ×2 (13:30→20:58)
[2019-12-31] MEDS: CEFTRIAXONE SOD 1 GM/NS 50 ML 50 ML IV SCH (15:24)
[2019-12-31 15:50] LABS: BASOPHILS % 0.3 % (0.0-1.0); EOSINOPHILS # (AUTO) 0.3 (0.0-0.4); EOSINOPHILS % 2.5 % (0.0-6.0); HEMATOCRIT 40.3 % (38.2-49.6); HEMOGLOBIN 13.7 g/dL (14.0-18.0); LYMPHOCYTES # (AUTO) 2.7 (1.0-3.2); LYMPHOCYTES % 22.1 % (18.0-39.1); MEAN CORPUSCULAR HEMOGLOBIN 28.5 pg (28-32); MEAN CORPUSCULAR VOLUME 83.8 fL (81-99); MONOCYTES # (AUTO) 0.8 (0.2-0.8); MONOCYTES % 6.6 % (4.4-11.3); NEUTROPHILS # (AUTO) 8.3 (2.1-6.9); NEUTROPHILS % 68.2 % (38.7-80.0); PLATELET COUNT 314 x10e3/uL (140-360); RED BLOOD COUNT 4.81 x10e6/uL (4.3-5.7); RED CELL DISTRIBUTION WIDTH 12.9 % (11.7-14.4)
[2019-12-31 16:06] LABS: ANION GAP 14.1 mmol/L (8-16); BLOOD UREA NITROGEN 20 mg/dL (7-26); BUN/CREATININE RATIO 25 (6-25); CALCIUM 8.9 mg/dL (8.4-10.2); CARBON DIOXIDE 24 mmol/L (22-29); CHLORIDE 104 mmol/L (98-107); CREATININE, SERUM 0.81 mg/dL (0.72-1.25); EST GLOMERULAR FILTRATION RATE > 60 ML/MIN (60-); GLUCOSE 189 mg/dL (74-118); POTASSIUM 4.1 mmol/L (3.5-5.1); SODIUM 138 mmol/L (136-145)
[2019-12-31] MEDS: ATORVASTATIN 20 MG TAB PO SCH (20:58)
--- NOTE | 2019-12-31 21:50 | Progress Note ---
DATE: 12/31/2019 SUBJECTIVE: Mr. Rodgers is doing better. There is no new complaint. REVIEW OF SYSTEMS: HEENT: Negative. PULMONARY: Negative. CARDIAC: Negative. LABORATORY DATA: Culture is still pending. His white count is 12.78 and hemoglobin 14. Sodium 143, potassium 4.3 with a creatinine of 1.3. MEDICATIONS: He is currently on daptomycin as well as Rocephin. OBJECTIVE: GENERAL: He is currently alert and oriented, does not seem to be in acute distress. VITAL SIGNS: Stable, currently afebrile. HEENT: Not icteric. NECK: Supple. CHEST: Clear. HEART: S1, S2. No S3, S4, or murmur. ABDOMEN: Soft. Bowel sounds present. No tenderness. EXTREMITIES: No edema. ASSESSMENT: 1. Osteomyelitis of the toe, status post amputation of the third toe. 2. Diabetes mellitus with neuropathy. 3. Hyperlipidemia. 4. Obesity. 5. Chronic kidney disease. PLAN: Continue daptomycin and continue Rocephin. Obtain sedimentation rate and C-reactive protein. Recheck CBC. Recheck Chem panel. We will follow. MD MARIIA Geller/MODL /[id number]
--- NOTE | 2019-12-31 23:06 | Progress Note ---
DATE: 12/31/2019 SUBJECTIVE: The patient is seen today, status post amputation of the 3rd digit of his right foot. The patient is feeling very well. No pain. No throbbing. Minimal bleeding into the dressing. The patient has remained nonweightbearing, but has postop shoe in his room. Review with the patient of the symptoms of cramping in his calf has resolved fully postop. REVIEW OF SYSTEMS: Otherwise negative. The wound dressing will be left intact today. He will begin partial weightbearing with bathroom privileges utilizing the postop shoe and walker. Recommend wound care consult for evaluation, dressing changes, and possible wound VAC on Thursday. ZOE Miranda/ABRAN /[id number]
[2020-01-01] VITALS (8 sets, daily range): BP systolic 118–136; BP diastolic 72–91
[2020-01-01] MEDS: HYDROCODONE/APAP 5MG-325MG TAB PO PRN ×3 (05:11→17:52)
[2020-01-01] MEDS: INSULIN LISPRO 100 UNIT/1 ML 3ML VIAL SQ SCH ×4 (07:30→19:53)
[2020-01-01] MEDS: MUPIROCIN 2% OINT 22 GM TUBE TOP SCH ×2 (08:08→16:17)
[2020-01-01] MEDS: DAPTOMYCIN 500mg 10ML 500 MG in SODIUM CHLORIDE 0.9% 100 ML IV SCH (10:00)
--- NOTE | 2020-01-01 13:43 | Progress Note ---
DATE: 01/01/2020 SUBJECTIVE: The patient did well overnight. No new complaints. He states his pain is doing significantly better since the amputation of the toe. OBJECTIVE: VITAL SIGNS: Temperature 97.5, pulse 90, blood pressure 117/72, sats 94% on room air. GENERAL: He is no apparent distress. LUNGS: Decreased breath sounds bilaterally. CARDIOVASCULAR: Regular rate and rhythm. ABDOMEN: Good bowel sounds. Soft, nontender. EXTREMITIES: No clubbing or cyanosis. His right foot is bandaged. NEUROLOGIC: Nonfocal. ASSESSMENT AND PLAN: 1. Osteomyelitis status post amputation of the toe. Continue with current antibiotic care and care per Podiatry. 2. Hyperlipidemia. Continue his cholesterol medicine. 3. Diabetes. Continue with his regimen and monitoring of his sugars. 4. Leukocytosis. Continue to monitor p.r.n. Please see hospital chart for full details. MD ILA Chaudhary/ABRAN /[id number]
--- NOTE | 2020-01-01 15:45 | NUR ---
Visit made by the Spiritual Care Department Pastoral Visitor, Rashard Campa. PV provided pastoral presence, hospitality, and supportive listening. Pastoral Visitor informed pt/family of the scope of [employer] and availability. JEAN HUITRON Shore Working Supervisor Spiritual Care Department O: [phone] Pager: [phone] ([phone] calling from)
[2020-01-01] MEDS: CEFTRIAXONE SOD 1 GM/NS 50 ML 50 ML IV SCH (16:17)
--- NOTE | 2020-01-01 19:04 | NUR ---
bedside rounding complete, report given to oncoming nurse. pt stable condition.
[2020-01-01] MEDS: ATORVASTATIN 20 MG TAB PO SCH (20:31)
[2020-01-02] VITALS (8 sets, daily range): BP systolic 122–144; BP diastolic 75–87
--- NOTE | 2020-01-02 07:05 | NUR ---
RCD PT AT BED PT IS ALERT AND ORIENTED PT RESTING ON BED NO SIGNS OF ANY DISTRESS NOTED IV PATENT BY SALINE FLUSH BED LOW AND LOCKED CALL LIGHT IN REACH
[2020-01-02] MEDS: INSULIN LISPRO 100 UNIT/1 ML 3ML VIAL SQ SCH ×4 (07:30→21:25)
--- NOTE | 2020-01-02 07:51 | Progress Note ---
DATE: 01/02/2020 A 44-year-old. SUBJECTIVE: The patient came in with osteomyelitis of the foot, status post amputation. The patient is doing better. The wound has not been open up, will be opening up today. Wound Care notified. The patient is otherwise in good spirits. Pain is controlled. OBJECTIVE: VITAL SIGNS: Temperature 96.8, pulse of 90, respirations of 18, blood pressure is 122/75, pulse oximetry of 98%. MICROBIOLOGY: Gram stain shows mixed skin eloina. LABORATORY VALUES: White count was 12.16 on the 1st. Chemistries are within normal limits. ASSESSMENT: Mr. Guanako Rodgers with 1. Osteomyelitis status post amputation of the toe, continue with antibiotics. The patient has a PICC line. The patient can be discharged home if IV antibiotics available with wound care. 2. Hyperlipidemia. 3. Diabetes. 4. Leukocytosis. PLAN: Continue monitoring the patient. Possible discharge if okay with consultants. MD KANDICE Krishnamurthy/ABRAN /[id number]
[2020-01-02] MEDS: MUPIROCIN 2% OINT 22 GM TUBE TOP SCH ×2 (09:00→17:00)
[2020-01-02] MEDS: HYDROCODONE/APAP 5MG-325MG TAB PO PRN ×3 (09:08→19:55)
[2020-01-02] MEDS: DAPTOMYCIN 500mg 10ML 500 MG in SODIUM CHLORIDE 0.9% 100 ML IV SCH (10:00)
--- NOTE | 2020-01-02 11:00 | NUR ---
WOUND VAC ON RIGHT FOOT
--- NOTE | 2020-01-02 12:21 | NUR ---
Received order to set up IV abx for home. CM spoke to pt at bedside. Pt stated that he had IV abx at home previously, but got it thru Dr. Monzon's office. CM informed him that CM spoke with SALEEM Rosario with Dr. Monzon, this morning, who said they were unable to set up thru the office. Pt states he was fine with using any company in network with insurance and he was fine with them setting up home health as well. Choice letter signed for [employer], [employer], and [employer]. Signed copy placed in front of chart. Copy to pt's transition of care folder. Pt had wound vac placed today. Pt states that he can follow up in wound clinic if needed. Pt stated that he will be able to find a ride to appointments. Contreras RN with wound care filled out wound vac order form and placed in front of chart for Dr. Conrad to sign. CM left message for Dr. Conrad regarding follow up after discharge and to inform him of form on chart. Awaiting response. Referral for IV abx faxed to [facility]. Blanca Boles, with [facility] was informed of referral and confirmed with CM that she has received it. P [phone] / F [phone].
--- NOTE | 2020-01-02 13:48 | NUR ---
WOUND CARE CONSULT 44 YO MALE DIABETIC PATIENT HX OF ABCESS AND CELLULITIS RIGHT FOOT , AMPUTATION LEFT 3RD TOE WILIAN 20 0N CONSERVATIVE PUP AND VISCO MATTRESS LABS : WBC- 12.16, HGB- 13.7, GLUCOSE -164 SKIN ASSESSMENT COMPLETE PATIENT PRESENTS WITH POST OPERATIVE X 3DAYS PER DR HARVEY LEFT 3RD TOE AMPUTATION SUTURES PRESENT PROXIMAL TOTAL MEASUREMENT 5CM X 1.5CM X 4.5CM ORDERS PER DR HARVEY NEGATIVE PRESSURE APPLICATION TO LEFT 3RD TOE AMP SITE ERVIN SKIN PREPPED XEROFORM PLACED OVER SUTURE LINE BLACK FOAM PLACE TO BASE OF SURGICAL WOUND SEAL ACHIEVED AT CONTINUOUS SUCTION AT 120 MMHG PATIENT WITHOUT C/O PAIN OR DISCOMFORT PRIOR ,DURING OR AFTER DRESSING APPLICATION DRESSING TO BE CHANGED THU, THU , FRIDA[facility] INFORMATION AND FORMS FILLED WITH AVAILABLE INFORMATION FOR HOME NPU IF ORDERED BY MD GIVEN TO SOLAR INSTALLER TECHNICIAN FOR ONCE DISCHARGE DATE AND INSTRUCTIONS ARE GIVEN BY MD ALSO RECOMMENDED IS FOLLOW UP WITH OUT PATIENT WOUND CARE FOR NEGITIVE PRESSURE MANAGEMENT IF DEEMED NECESSARY BY DR CANDICE ENRIQUEZ Addendum: 01/02/20 at 1403 by Contreras Valdez RN Amended: Links added.
--- NOTE | 2020-01-02 14:50 | NUR ---
Sent wound vac order to Dr. Conrad's office for signature. Choice obtained for [facility]. Choice letter in chart. Copy to pt. Will send order once MD signs. Also received orders for outpatient wound care at wound clinic. Wound vac changes three times a week. Pt signed choice for [facility]'s outpatient wound clinic. Choice letter in chart. Copy to pt. Pt has wound clinic's business card with address and phone number. CM called and spoke with Princess at wound clinic regarding referral. Faxed FS, order and clinicals to [phone].
--- NOTE | 2020-01-02 15:05 | NUR ---
Nutrition Screen Note RD Recommendation for Physician: - Continue current diet Plan of Care: RD following, monitoring for tolerance and adequacy Nutrition reason for involvement: LOS Primary Diagnose(s): abscess/cellulitis of R foot PMH: DM, osteomyelitis, L foot- little toe amputation Ht: 71 in Wt: 245.03 lb BMI: 35.4 kg/m2 IBW: [address] Assessment: (01/02) 44 YOM admitted for abscess/cellulitis of the R foot, pt seen today for LOS. Pt s/p amputation of 3rd toe to right foot requiring a wound vac. Pt reports good appetite and po intake currently and VIDEO ENGINEER, noted 100% meal intake. Pt denies any N/V/C/D. Pt denies any wt loss, reports UBW of 240#. Chart reviewed. Labs and meds reviewed, BG trend elevated. Pt discussed during am rounds, pending discharge tomorrow. Wound care changing out wound vac at time of visit, diet education not appropriate at this time. Will continue to monitor. Current Diet: 1800 ADA Malnutrition Evaluation (01/02/20) The patient does not meet criteria for a specified degree of malnutrition at this time. Will re-evaluate at follow-up as appropriate. Diet Education Needs Assessment: Diet education indicated, pt not appropriate at this time. Diet tolerance: tolerating po Nutrition Care Level: Low Signed: Valeria Goins RD, LD, [facility]
[2020-01-02] MEDS: CEFTRIAXONE SOD 1 GM/NS 50 ML 50 ML IV SCH (15:11)
--- NOTE | 2020-01-02 16:27 | NUR ---
Mariama, RN with [facility] is here to provide bedside teaching to pt. Home health is set up with [facility] Phone number [phone] Home health information was printed and given to pt. Received signed order for wound vac from Dr. Conrad. Order and clinicals faxed to [facility] at [phone]. Serge with [facility] was notified of referral.
--- NOTE | 2020-01-02 18:49 | NUR ---
PT RESTING ON BED BED SIDE REPORT GIVEN TO ONCOMING NURSE
[2020-01-02] MEDS: ATORVASTATIN 20 MG TAB PO SCH (21:20)
--- NOTE | 2020-01-02 21:25 | NUR ---
PATIENT AOX4, NO SIGNS OF DISTRESS NOTED. PATIENT IS RESTING IN BED AND VOICES PAIN AT A LEVEL OF 5 AND WAS PREVIOUSLY MEDICATED ORDERED. WOUND VAC ON RIGHT FOOT IS INTACT AND DRESSING IS DRY. BED IS IN LOWEST POSITION, BOTH SIDE RAILS ARE UP, CALL LIGHT WITHIN EASY REACH, WILL CONTINUE TO MONITOR.
[2020-01-03] VITALS: BP 127/78
[2020-01-03 04:00] VITALS: BP 112/66
--- NOTE | 2020-01-03 07:00 | NUR ---
RCD PT AT BED PT IS ALERT AND ORIENTED PT RESTING ON BED NO SIGNS OF ANY DISTRESS NOTED IV PATENT BY SALINE FLUSH WOUND VACC ON THE RT FOOT WORKING GOOD BED LOW AND LOCKED CALL LIGHT IN REACH
[2020-01-03] MEDS: INSULIN LISPRO 100 UNIT/1 ML 3ML VIAL SQ SCH (07:30)
--- NOTE | 2020-01-03 07:32 | Progress Note ---
DATE: 01/03/2020 SUBJECTIVE: The patient is a 44-year-old male with history of hyperlipidemia, hypertension, diabetes mellitus, came in with osteomyelitis of the foot. The patient had amputation and doing better. Yesterday, Wound Care did open up the wound. Wound VAC was applied. The patient is currently on IV antibiotic, daptomycin, Rocephin, and mupirocin to the wound. Pain is controlled, although there is some throbbing at times. OBJECTIVE: VITAL SIGNS: Temperature is 96.1, afebrile, respirations of 20, pulse of 87, blood pressure is 112/66, pulse oximetry of 98%. HEENT: Normocephalic and atraumatic. Pupils are reactive. CVS: S1 and S2 are normal. Regular rate and rhythm. ABDOMEN: Nontender, nondistended. EXTREMITIES: No clubbing, no cyanosis, no edema. Right foot in bandage. The patient has a wound VAC to the right foot. Peripheral pulse pulses feeble. ASSESSMENT: Osteomyelitis, status post amputation of the toe. Continue with antibiotics. The patient can be discharged home with IV antibiotics, has a PICC line for next 2 weeks. Hyperlipidemia, continue statin. Diabetes, continue on current medications. Leukocytosis resolved. The patient was counseled on taking a statin and also counseled on dietary modifications. For further information, look in the chart. The patient can be discharged. Follow up with his primary care physician if IV antibiotics are arranged for the next 2 weeks. MD KANDICE Krishnamurthy/MODL /[id number]
[2020-01-03 08:00] VITALS: BP 130/80
[2020-01-03 08:39] VITALS: BP 130/80
[2020-01-03] MEDS: HYDROCODONE/APAP 5MG-325MG TAB PO PRN (09:00)
[2020-01-03] MEDS: MUPIROCIN 2% OINT 22 GM TUBE TOP SCH (09:00)
[2020-01-03] MEDS: DAPTOMYCIN 500mg 10ML 500 MG in SODIUM CHLORIDE 0.9% 100 ML IV SCH (10:00)
--- NOTE | 2020-01-03 10:20 | NUR ---
Serge with [facility] will deliver wound vac today. MADDISON called and spoke with Princess at wound clinic. Scheduled pt for appointment on Thursday01/06/20 at 1430. [address], [address] [place] [address] Appointment information was printed and given to pt. Spoke with Dona with [facility]. States that are ready to accept pt when he discharges. [phone]. Addendum: 01/03/20 at 1127 by Mary Jacobs CM Spoke to Contreras coroner/medical examiner regarding wound vac dressing change. Informed him that pt has follow up appt with clinic on Thursday. He states the current dressing should be fine until Thursday. Nursing needs to just switch out units once wound vac get delivered. BHAVIN Suh was notified.
--- NOTE | 2020-01-03 11:15 | NUR ---
HOME HEALTH NURSE SAID THEY ARRANGED DAPTOMYCIN AT HOME
--- NOTE | 2020-01-03 11:50 | NUR ---
CHANGED THE WOUND VACC HIS OWN
--- NOTE | 2020-01-03 11:50 | NUR ---
AC TO THE WOUND CARE NURSE THE DRESSING IS GOOD ONLY CHANGE THE WOUND VACC
--- NOTE | 2020-01-03 11:50 | NUR ---
PAGED DR WOOD AND NOTIFIED HOME ANTIBIOTIC AND WOUND VACC READY GOT THE DISCHARGE ORDER
[2020-01-03 12:00] VITALS: BP 127/78
[2020-01-03] MEDS ORDERED: ATORVASTATIN CA20 MG PO (12:21)
--- NOTE | 2020-01-03 12:26 | NUR ---
Spoke with Blanca Boles with [facility], informed her that pt will be discharging today. She will have her intake nurse reach out to pt and coordinate delivery. CM called [facility] and spoke to intake. Informed of discharge today. They will see pt tomorrow.
== END 2020-01-03 12:49 | disposition home health service (06) | DRG 617 ==
LOC: MED/SURG2 12:39
PROVIDERS: ADMIT Family Medicine; ATTEND Family Medicine
PROC: 0Y6T0Z3 Detachment at Right 3rd Toe, Low, Open Approach (ICD-10-PCS; principal; 2019-12-30 09:28)
DX: E11.69 Type 2 diabetes mellitus with other specified complication (principal); L02.611 Cutaneous abscess of right foot; M86.171 Other acute osteomyelitis, right ankle and foot; E11.621 Type 2 diabetes mellitus with foot ulcer; E11.21 Type 2 diabetes mellitus with diabetic nephropathy; E11.42 Type 2 diabetes mellitus with diabetic polyneuropathy; E66.9 Obesity, unspecified; Z89.422 Acquired absence of other left toe(s); Z83.3 Family history of diabetes mellitus; E11.22 Type 2 diabetes mellitus with diabetic chronic kidney disease; L03.031 Cellulitis of right toe; E78.5 Hyperlipidemia, unspecified; D72.829 Elevated white blood cell count, unspecified; Z68.35 Body mass index [BMI] 35.0-35.9, adult; I12.9 Hypertensive chronic kidney disease with stage 1 through stage 4 chronic kidney disease, or unspecified chronic kidney disease; N17.9 Acute kidney failure, unspecified; N18.3 Chronic kidney disease, stage 3 (moderate); Z79.84 Long term (current) use of oral hypoglycemic drugs; L97.514 Non-pressure chronic ulcer of other part of right foot with necrosis of bone
CPT/HCPCS: 36415; 36569; 71045; 76000; 80048; 80053; 80061; 82948; 85025; 85651; 87040; 87071; 87075; 87205; 88304; 88305; 88311; 93925; 93970; 97605; J0696; J1100; J1885; J2405; J2710; J3370; J7050; Q4100

== ENCOUNTER → 2020-01-06 | Outpatient (CLI) | payer OTHER ==
[~2020-01-06] MED LIST changes: +ATORVASTATIN CA20 MG PO; +JARDIANCE25 MG PO; +MINERAL OIL/PETROLAT/GLYCERI 6OZ BTL ONE
== END ==
LOC: WCC 01:00
PROVIDERS: ATTEND Podiatrist Foot Surgery
DX: T87.89 Other complications of amputation stump (principal)

== ENCOUNTER → 2020-01-10 | Outpatient (CLI) | payer BC, OTHER ==
[~2020-01-10] MED LIST changes: -MINERAL OIL/PETROLAT/GLYCERI 6OZ BTL ONE
== END ==
LOC: WCC 01-09 16:37
PROVIDERS: ATTEND Podiatrist Foot Surgery
DX: L03.115 Cellulitis of right lower limb (principal)

== ENCOUNTER → 2020-01-13 | Outpatient (CLI) | payer BC, OTHER | LOC: WCC 11:00 | PROVIDERS: ATTEND Podiatrist Foot Surgery | DX: T87.89 Other complications of amputation stump (principal) ==

== ENCOUNTER → 2020-01-16 | Outpatient (CLI) | payer BC, OTHER | LOC: WCC 11:32 | PROVIDERS: ATTEND Podiatrist Foot Surgery | DX: T87.89 Other complications of amputation stump (principal) ==

== ENCOUNTER → 2020-01-18 | Outpatient (CLI) | payer BC, OTHER | LOC: WCC 13:57 | PROVIDERS: ATTEND Podiatrist Foot Surgery | DX: T87.89 Other complications of amputation stump (principal); E11.65 Type 2 diabetes mellitus with hyperglycemia; B95.4 Other streptococcus as the cause of diseases classified elsewhere ==

== ENCOUNTER → 2020-01-20 | Outpatient (CLI) | payer BC, OTHER | LOC: WCC 08:57 | PROVIDERS: ATTEND Podiatrist Foot Surgery | DX: T87.89 Other complications of amputation stump (principal); E11.65 Type 2 diabetes mellitus with hyperglycemia; B95.4 Other streptococcus as the cause of diseases classified elsewhere ==

== ENCOUNTER → 2020-01-23 | Outpatient (CLI) | payer BC, OTHER | LOC: WCC 13:45 | PROVIDERS: ATTEND Podiatrist Foot Surgery | DX: T87.89 Other complications of amputation stump (principal); E11.65 Type 2 diabetes mellitus with hyperglycemia; B95.4 Other streptococcus as the cause of diseases classified elsewhere ==

== ENCOUNTER → 2020-01-25 | Outpatient (CLI) | payer BC, OTHER | LOC: WCC 14:21 | PROVIDERS: ATTEND Podiatrist Foot Surgery | DX: T87.89 Other complications of amputation stump (principal); E11.65 Type 2 diabetes mellitus with hyperglycemia; B95.4 Other streptococcus as the cause of diseases classified elsewhere ==

== ENCOUNTER → 2020-01-27 | Outpatient (CLI) | payer BC, OTHER | LOC: WCC 12:42 | PROVIDERS: ATTEND Podiatrist Foot Surgery | DX: T87.89 Other complications of amputation stump (principal); E11.65 Type 2 diabetes mellitus with hyperglycemia; B95.4 Other streptococcus as the cause of diseases classified elsewhere ==

== ENCOUNTER → 2020-01-30 | Outpatient (CLI) | payer OTHER ==
[~2020-01-30] MED LIST changes: +MINERAL OIL/PETROLAT/GLYCERI 6OZ BTL ONE
== END ==
LOC: WCC 14:21
PROVIDERS: ATTEND Podiatrist Foot Surgery
DX: T87.89 Other complications of amputation stump (principal); E11.65 Type 2 diabetes mellitus with hyperglycemia; B95.4 Other streptococcus as the cause of diseases classified elsewhere
CPT/HCPCS: 36415; 82948

== ENCOUNTER → 2020-02-01 | Outpatient (CLI) | payer BC, OTHER ==
[~2020-02-01] MED LIST changes: -MINERAL OIL/PETROLAT/GLYCERI 6OZ BTL ONE
== END ==
LOC: WCC 11:50
PROVIDERS: ATTEND Family Medicine Adult Medicine
DX: T87.89 Other complications of amputation stump (principal); E11.65 Type 2 diabetes mellitus with hyperglycemia; B95.7 Other staphylococcus as the cause of diseases classified elsewhere

== ENCOUNTER → 2020-02-03 | Outpatient (CLI) | payer BC, OTHER | LOC: WCC 15:04 | PROVIDERS: ATTEND Podiatrist Foot Surgery | DX: T87.89 Other complications of amputation stump (principal); E11.65 Type 2 diabetes mellitus with hyperglycemia; B95.4 Other streptococcus as the cause of diseases classified elsewhere ==

== ENCOUNTER → 2020-02-06 | Outpatient (CLI) | payer BC, OTHER | LOC: WCC 10:04 | PROVIDERS: ATTEND Podiatrist Foot Surgery | DX: T87.89 Other complications of amputation stump (principal); E11.65 Type 2 diabetes mellitus with hyperglycemia; B95.4 Other streptococcus as the cause of diseases classified elsewhere ==

== ENCOUNTER → 2020-02-08 | Outpatient (CLI) | payer BC, OTHER | LOC: WCC 10:18 | PROVIDERS: ATTEND Podiatrist Foot Surgery | DX: T87.89 Other complications of amputation stump (principal); E11.65 Type 2 diabetes mellitus with hyperglycemia; B95.4 Other streptococcus as the cause of diseases classified elsewhere ==

== ENCOUNTER → 2020-02-10 | Outpatient (CLI) | payer BC, OTHER | LOC: WCC 08:47 | PROVIDERS: ATTEND Podiatrist Foot Surgery | DX: T87.89 Other complications of amputation stump (principal) ==

== ENCOUNTER → 2020-02-14 | Outpatient (CLI) | payer BC, OTHER | LOC: WCC 09:43 | PROVIDERS: ATTEND Podiatrist Foot Surgery | DX: T87.89 Other complications of amputation stump (principal) ==

== ENCOUNTER → 2020-02-17 | Outpatient (CLI) | payer BC, OTHER | LOC: WCC 09:32 | PROVIDERS: ATTEND Podiatrist Foot Surgery | DX: T87.89 Other complications of amputation stump (principal); E11.65 Type 2 diabetes mellitus with hyperglycemia; B95.4 Other streptococcus as the cause of diseases classified elsewhere ==

== ENCOUNTER → 2020-02-20 | Outpatient (CLI) | payer BC, OTHER | LOC: WCC 13:55 | PROVIDERS: ATTEND Podiatrist Foot Surgery | DX: T87.89 Other complications of amputation stump (principal) ==

== ENCOUNTER → 2020-02-22 | Outpatient (CLI) | payer BC, OTHER | LOC: WCC 15:08 | PROVIDERS: ATTEND Podiatrist Foot Surgery | DX: T87.89 Other complications of amputation stump (principal) ==

== ENCOUNTER → 2020-02-24 | Outpatient (CLI) | payer BC, OTHER | LOC: WCC 14:08 | PROVIDERS: ATTEND Podiatrist Foot Surgery | DX: T87.89 Other complications of amputation stump (principal) ==

== ENCOUNTER → 2020-02-27 | Outpatient (CLI) | payer BC, OTHER | LOC: WCC 13:18 | PROVIDERS: ATTEND Podiatrist Foot Surgery | DX: T87.89 Other complications of amputation stump (principal) ==

== ENCOUNTER → 2020-02-29 | Outpatient (CLI) | payer OTHER ==
[~2020-02-29] MED LIST changes: +MINERAL OIL/PETROLAT/GLYCERI 6OZ BTL ONE
== END ==
LOC: WCC 10:05
PROVIDERS: ATTEND Podiatrist Foot Surgery
DX: T87.89 Other complications of amputation stump (principal)
CPT/HCPCS: 36415; 82948

== ENCOUNTER → 2020-03-02 | Outpatient (CLI) | payer BC, OTHER ==
[~2020-03-02] MED LIST changes: -MINERAL OIL/PETROLAT/GLYCERI 6OZ BTL ONE
== END ==
LOC: WCC 10:25
PROVIDERS: ATTEND Podiatrist Foot Surgery
DX: T87.89 Other complications of amputation stump (principal)

== ENCOUNTER → 2020-03-05 | Outpatient (CLI) | payer BC, OTHER | LOC: WCC 16:00 | PROVIDERS: ATTEND Podiatrist Foot Surgery | DX: T87.89 Other complications of amputation stump (principal) ==

== ENCOUNTER → 2020-03-07 | Outpatient (CLI) | payer BC, OTHER | LOC: WCC 10:50 | PROVIDERS: ATTEND Podiatrist Foot Surgery | DX: T87.89 Other complications of amputation stump (principal) ==

== ENCOUNTER → 2020-03-09 | Outpatient (CLI) | payer BC | LOC: WCC 11:02 | PROVIDERS: ATTEND Podiatrist Foot Surgery | DX: T87.89 Other complications of amputation stump (principal) ==

== ENCOUNTER → 2020-03-14 | Outpatient (CLI) | payer BC | LOC: WCC 11:03 | PROVIDERS: ATTEND Podiatrist Foot Surgery | DX: T87.89 Other complications of amputation stump (principal) ==

== ENCOUNTER → 2020-03-16 | Outpatient (CLI) | payer BC | LOC: WCC 11:13 | PROVIDERS: ATTEND Podiatrist Foot Surgery | DX: T87.89 Other complications of amputation stump (principal) ==

== ENCOUNTER → 2020-03-19 | Outpatient (CLI) | payer BC | LOC: WCC 09:18 | PROVIDERS: ATTEND Podiatrist Foot Surgery | DX: T87.89 Other complications of amputation stump (principal) ==

== ENCOUNTER → 2020-03-21 | Outpatient (CLI) | payer BC | LOC: WCC 09:20 | PROVIDERS: ATTEND Podiatrist Foot Surgery | DX: T87.89 Other complications of amputation stump (principal) ==

== ENCOUNTER → 2020-03-23 | Outpatient (CLI) | payer BC | LOC: WCC 13:58 | PROVIDERS: ATTEND Podiatrist Foot Surgery | DX: T87.89 Other complications of amputation stump (principal) ==

== ENCOUNTER → 2020-03-26 | Outpatient (CLI) | payer BC | LOC: WCC 11:17 | PROVIDERS: ATTEND Podiatrist Foot Surgery | DX: T87.89 Other complications of amputation stump (principal) ==

== ENCOUNTER 2021-02-21 15:40 | Inpatient (IN) | payer OTHER ==
[~2021-02-21] VITALS: Ht 180.3 cm; Wt 115.7 kg
[2021-02-21] MEDS ORDERED: MAGNESIUM HYDROXIDE 30 ML UDC PO PRN (16:30)
[2021-02-21] MEDS ORDERED: BISMUTH SUBSALICYLATE 262 MG TAB PO PRN (16:30)
[2021-02-21 16:34] VITALS: BP 130/82
[2021-02-21] MEDS ORDERED: LANTUS 3ML100 UNITS/ SC (16:57)
[2021-02-21 17:12] LABS: BASOPHILS # (AUTO) 0.1 (0.0-0.1); BASOPHILS % 0.7 % (0.0-1.0); EOSINOPHILS # (AUTO) 0.3 (0.0-0.4); EOSINOPHILS % 2.9 % (0.0-6.0); HEMATOCRIT 48.6 % (38.2-49.6); HEMOGLOBIN 16.1 g/dL (14.0-18.0); LYMPHOCYTES # (AUTO) 2.7 (1.0-3.2); LYMPHOCYTES % 27.8 % (18.0-39.1); MEAN CORPUSCULAR HEMOGLOBIN 28.4 pg (28-32); MEAN CORPUSCULAR HGB CONC 33.1 g/dL (31-35); MEAN CORPUSCULAR VOLUME 85.9 fL (81-99); MONOCYTES # (AUTO) 0.5 (0.2-0.8); MONOCYTES % 5.4 % (4.4-11.3); NEUTROPHILS # (AUTO) 6.2 (2.1-6.9); NEUTROPHILS % 62.9 % (38.7-80.0); PLATELET COUNT 271 x10e3/uL (140-360); RED BLOOD COUNT 5.66 x10e6/uL (4.3-5.7); RED CELL DISTRIBUTION WIDTH 12.4 % (11.7-14.4)
[2021-02-21] MEDS ORDERED: SODIUM CHLORIDE 0.9% 250ML 250 ML ONE (17:26)
[2021-02-21 17:28] LABS: ALANINE AMINOTRANSFERASE 34 IU/L (0-55); ALBUMIN 3.6 g/dL (3.5-5.0); ALBUMIN/GLOBULIN RATIO 0.7 (0.8-2.0); ALKALINE PHOSPHATASE 95 IU/L (40-150); ANION GAP 18.2 mmol/L (8-16); BLOOD UREA NITROGEN 24 mg/dL (7-26); BUN/CREATININE RATIO 20 (6-25); CALCIUM 9.4 mg/dL (8.4-10.2); CARBON DIOXIDE 24 mmol/L (22-29); CHLORIDE 101 mmol/L (98-107); CREATININE, SERUM 1.18 mg/dL (0.72-1.25); EST GLOMERULAR FILTRATION RATE > 60 ML/MIN (60-); GLUCOSE 270 mg/dL (74-118); POTASSIUM 4.2 mmol/L (3.5-5.1); SODIUM 139 mmol/L (136-145)
[2021-02-21] MEDS: VANCOMYCIN 1GM/NS 250 ML 250 ML IV SCH (17:30)
[2021-02-21 17:31] VITALS: BP 130/82
[2021-02-21 17:52] VITALS: BP 130/82
[2021-02-21] MEDS: PIPERACILLIN/TAZOBAC 3.375 GM in SODIUM CHLORIDE 0.9% 50ML 50 ML IV SCH (18:00)
[2021-02-21] MEDS: ATORVASTATIN 20 MG TAB PO SCH (20:49)
[2021-02-21] MEDS: ZOLPIDEM TARTRATE 5 MG TAB PO PRN (20:49)
[2021-02-21 20:53] VITALS: BP 126/76
[2021-02-21] MEDS: INSULIN GLARGINE 100 UNITS/ML VIAL SQ SCH (20:57)
[2021-02-21 21:00] VITALS: BP 126/76
[2021-02-21] MEDS ORDERED: NON-FORMULARY MEDICATION (Insulin Glargine (Lantus 3ML Pen) 20 UNIT) SC SCH (21:00)
[2021-02-22] VITALS (8 sets, daily range): BP systolic 102–131; BP diastolic 68–84
[2021-02-22] MEDS: PIPERACILLIN/TAZOBAC 3.375 GM in SODIUM CHLORIDE 0.9% 50ML 50 ML IV SCH ×5 (06:14→18:22)
[2021-02-22] MEDS: VANCOMYCIN 1GM/NS 250 ML 250 ML IV SCH ×2 (09:00→20:00)
[2021-02-22] MEDS: INSULIN GLARGINE 100 UNITS/ML VIAL SQ SCH ×2 (10:00→20:46)
[2021-02-22] MEDS: ATORVASTATIN 20 MG TAB PO SCH (20:39)
[2021-02-22] MEDS: ZOLPIDEM TARTRATE 5 MG TAB PO PRN (20:39)
[2021-02-23] VITALS (8 sets, daily range): BP systolic 109–131; BP diastolic 77–88
[2021-02-23] MEDS: PIPERACILLIN/TAZOBAC 3.375 GM in SODIUM CHLORIDE 0.9% 50ML 50 ML IV SCH ×6 (06:00→23:23)
[2021-02-23] MEDS: INSULIN GLARGINE 100 UNITS/ML VIAL SQ SCH ×2 (10:23→21:00)
[2021-02-23] MEDS: VANCOMYCIN 1GM/NS 250 ML 250 ML IV SCH ×2 (10:33→20:00)
[2021-02-23] MEDS: ATORVASTATIN 20 MG TAB PO SCH (20:46)
[2021-02-23] MEDS: ZOLPIDEM TARTRATE 5 MG TAB PO PRN (20:46)
[2021-02-24] VITALS (8 sets, daily range): BP systolic 108–135; BP diastolic 69–93
[2021-02-24] MEDS: PIPERACILLIN/TAZOBAC 3.375 GM in SODIUM CHLORIDE 0.9% 50ML 50 ML IV SCH ×4 (05:51→23:19)
[2021-02-24] MEDS: VANCOMYCIN 1GM/NS 250 ML 250 ML IV SCH ×2 (09:41→20:00)
[2021-02-24] MEDS: INSULIN GLARGINE 100 UNITS/ML VIAL SQ SCH ×2 (09:42→21:00)
[2021-02-24] MEDS: ATORVASTATIN 20 MG TAB PO SCH (21:00)
[2021-02-24] MEDS: ZOLPIDEM TARTRATE 5 MG TAB PO PRN (21:08)
[2021-02-25] VITALS (7 sets, daily range): BP systolic 90–134; BP diastolic 66–89
[2021-02-25] MEDS: PIPERACILLIN/TAZOBAC 3.375 GM in SODIUM CHLORIDE 0.9% 50ML 50 ML IV SCH ×3 (06:00→18:58)
[2021-02-25] MEDS: VANCOMYCIN 1GM/NS 250 ML 250 ML IV SCH ×2 (08:37→22:39)
[2021-02-25] MEDS: INSULIN GLARGINE 100 UNITS/ML VIAL SQ SCH ×2 (08:41→22:40)
[2021-02-25] MEDS ORDERED: SODIUM CHLORIDE 0.9% 250ML 250 ML ONE (11:32)
[2021-02-25] MEDS: ATORVASTATIN 20 MG TAB PO SCH (22:39)
[2021-02-26] VITALS (8 sets, daily range): BP systolic 92–137; BP diastolic 64–86
[2021-02-26] MEDS: PIPERACILLIN/TAZOBAC 3.375 GM in SODIUM CHLORIDE 0.9% 50ML 50 ML IV SCH ×5 (00:10→22:47)
[2021-02-26] MEDS ORDERED: ACETAMINOPHEN 1000 MG/100 ML 100 ML IV ONE (06:35)
[2021-02-26] MEDS ORDERED: BUPIVACAINE HCL 0.5% INJ 30 ML VIAL INJ ONE (07:55)
[2021-02-26] MEDS: VANCOMYCIN 1GM/NS 250 ML 250 ML IV SCH ×2 (08:59→20:37)
[2021-02-26] MEDS: INSULIN GLARGINE 100 UNITS/ML VIAL SQ SCH ×2 (09:00→20:39)
[2021-02-26] MEDS: HYDROCODONE/APAP 10MG-325MG TAB PO PRN ×3 (09:37→20:39)
[2021-02-26 09:56] LABS: BASOPHILS # (AUTO) 0.1 (0.0-0.1); BASOPHILS % 0.9 % (0.0-1.0); EOSINOPHILS # (AUTO) 0.3 (0.0-0.4); EOSINOPHILS % 3.6 % (0.0-6.0); HEMATOCRIT 47.7 % (38.2-49.6); HEMOGLOBIN 15.8 g/dL (14.0-18.0); LYMPHOCYTES # (AUTO) 2.2 (1.0-3.2); LYMPHOCYTES % 28.4 % (18.0-39.1); MEAN CORPUSCULAR HEMOGLOBIN 28.4 pg (28-32); MEAN CORPUSCULAR HGB CONC 33.1 g/dL (31-35); MEAN CORPUSCULAR VOLUME 85.8 fL (81-99); MONOCYTES # (AUTO) 0.5 (0.2-0.8); MONOCYTES % 6.9 % (4.4-11.3); NEUTROPHILS # (AUTO) 4.5 (2.1-6.9); NEUTROPHILS % 59.8 % (38.7-80.0); PLATELET COUNT 275 x10e3/uL (140-360); RED BLOOD COUNT 5.56 x10e6/uL (4.3-5.7); RED CELL DISTRIBUTION WIDTH 12.5 % (11.7-14.4)
[2021-02-26 10:30] LABS: ALANINE AMINOTRANSFERASE 31 IU/L (0-55); ALBUMIN 3.4 g/dL (3.5-5.0); ALBUMIN/GLOBULIN RATIO 0.8 (0.8-2.0); ALKALINE PHOSPHATASE 76 IU/L (40-150); BLOOD UREA NITROGEN 15 mg/dL (7-26); BUN/CREATININE RATIO 14 (6-25); CALCIUM 8.5 mg/dL (8.4-10.2); CARBON DIOXIDE 25 mmol/L (22-29); CHLORIDE 104 mmol/L (98-107); CREATININE, SERUM 1.04 mg/dL (0.72-1.25); EST GLOMERULAR FILTRATION RATE > 60 ML/MIN (60-); GLUCOSE 92 mg/dL (74-118); SODIUM 139 mmol/L (136-145)
[2021-02-26] MEDS ORDERED: SEVOFLURANE INHAL SOLN 250 ML PEN BTL ONE (12:03)
[2021-02-26] MEDS ORDERED: PHENYLEPHRINE HCL 1% 10 MG/ML VIAL ONE (12:03)
[2021-02-26] MEDS ORDERED: EPHEDRINE SULFATE INJ 50 MG/ML VIAL ONE (12:03)
[2021-02-26] MEDS ORDERED: ONDANSETRON HCL INJ 2MG/ML 2ML 2 MG/ML VIAL ONE (12:03)
[2021-02-26] MEDS ORDERED: PROPOFOL IV EMULSION 10 MG/ML 20 ML VIAL ONE (12:03)
[2021-02-26] MEDS ORDERED: LIDOCAINE HCL 2% LOCAL INJ 5 ML SDV VIAL INJ ONE (12:03)
[2021-02-26] MEDS ORDERED: FENTANYL CITRATE/PF 100MCG/2 ML INJ ONE (12:13)
[2021-02-26] MEDS ORDERED: MIDAZOLAM HCL 2 MG/2 ML VIAL ONE (12:13)
[2021-02-26] MEDS: PROMETHAZINE 25MG/ NS 50ML (IV) IV PRN (20:00)
[2021-02-26] MEDS: ATORVASTATIN 20 MG TAB PO SCH (20:37)
[2021-02-26] MEDS: ZOLPIDEM TARTRATE 5 MG TAB PO PRN (20:39)
[2021-02-27] VITALS (8 sets, daily range): BP systolic 97–140; BP diastolic 61–87
[2021-02-27] MEDS: PIPERACILLIN/TAZOBAC 3.375 GM in SODIUM CHLORIDE 0.9% 50ML 50 ML IV SCH ×4 (05:13→23:34)
[2021-02-27] MEDS: HYDROCODONE/APAP 10MG-325MG TAB PO PRN ×4 (05:23→22:23)
[2021-02-27] MEDS ORDERED: SODIUM CHLORIDE 0.9% 1000ML 1,000 ML ONE (05:27)
[2021-02-27 05:36] LABS: BASOPHILS # (AUTO) 0.1 (0.0-0.1); BASOPHILS % 0.8 % (0.0-1.0); EOSINOPHILS # (AUTO) 0.3 (0.0-0.4); EOSINOPHILS % 3.5 % (0.0-6.0); HEMATOCRIT 44.6 % (38.2-49.6); LYMPHOCYTES # (AUTO) 2.2 (1.0-3.2); LYMPHOCYTES % 22.8 % (18.0-39.1); MEAN CORPUSCULAR HEMOGLOBIN 29.1 pg (28-32); MEAN CORPUSCULAR HGB CONC 33.6 g/dL (31-35); MEAN CORPUSCULAR VOLUME 86.4 fL (81-99); MONOCYTES # (AUTO) 0.9 (0.2-0.8); MONOCYTES % 9.3 % (4.4-11.3); NEUTROPHILS # (AUTO) 6.1 (2.1-6.9); NEUTROPHILS % 63.2 % (38.7-80.0); PLATELET COUNT 257 x10e3/uL (140-360); RED BLOOD COUNT 5.16 x10e6/uL (4.3-5.7); RED CELL DISTRIBUTION WIDTH 12.6 % (11.7-14.4)
[2021-02-27 06:03] LABS: ALANINE AMINOTRANSFERASE 26 IU/L (0-55); ALBUMIN 3.2 g/dL (3.5-5.0); ALBUMIN/GLOBULIN RATIO 0.7 (0.8-2.0); ALKALINE PHOSPHATASE 69 IU/L (40-150); ANION GAP 12.2 mmol/L (8-16); BLOOD UREA NITROGEN 15 mg/dL (7-26); BUN/CREATININE RATIO 13 (6-25); CALCIUM 8.3 mg/dL (8.4-10.2); CARBON DIOXIDE 27 mmol/L (22-29); CHLORIDE 107 mmol/L (98-107); CREATININE, SERUM 1.12 mg/dL (0.72-1.25); EST GLOMERULAR FILTRATION RATE > 60 ML/MIN (60-); GLUCOSE 88 mg/dL (74-118); POTASSIUM 4.2 mmol/L (3.5-5.1); SODIUM 142 mmol/L (136-145)
[2021-02-27] MEDS: VANCOMYCIN 1GM/NS 250 ML 250 ML IV SCH ×2 (09:37→20:55)
[2021-02-27] MEDS: INSULIN GLARGINE 100 UNITS/ML VIAL SQ SCH ×2 (09:38→21:15)
[2021-02-27] MEDS: ATORVASTATIN 20 MG TAB PO SCH (20:55)
[2021-02-27] MEDS: ZOLPIDEM TARTRATE 5 MG TAB PO PRN (22:22)
[2021-02-28] VITALS (8 sets, daily range): BP systolic 119–145; BP diastolic 64–100
[2021-02-28] MEDS: PIPERACILLIN/TAZOBAC 3.375 GM in SODIUM CHLORIDE 0.9% 50ML 50 ML IV SCH ×3 (05:47→17:49)
[2021-02-28 05:52] LABS: BASOPHILS # (AUTO) 0.1 (0.0-0.1); BASOPHILS % 0.9 % (0.0-1.0); EOSINOPHILS # (AUTO) 0.5 (0.0-0.4); EOSINOPHILS % 4.9 % (0.0-6.0); HEMATOCRIT 42.5 % (38.2-49.6); HEMOGLOBIN 14.4 g/dL (14.0-18.0); LYMPHOCYTES # (AUTO) 3.3 (1.0-3.2); LYMPHOCYTES % 34.2 % (18.0-39.1); MEAN CORPUSCULAR HEMOGLOBIN 29.1 pg (28-32); MEAN CORPUSCULAR HGB CONC 33.9 g/dL (31-35); MEAN CORPUSCULAR VOLUME 85.9 fL (81-99); MONOCYTES % 10.2 % (4.4-11.3); NEUTROPHILS # (AUTO) 4.7 (2.1-6.9); NEUTROPHILS % 49.6 % (38.7-80.0); PLATELET COUNT 248 x10e3/uL (140-360); RED BLOOD COUNT 4.95 x10e6/uL (4.3-5.7); RED CELL DISTRIBUTION WIDTH 12.4 % (11.7-14.4)
[2021-02-28 06:16] LABS: ALANINE AMINOTRANSFERASE 23 IU/L (0-55); ALBUMIN 3.2 g/dL (3.5-5.0); ALBUMIN/GLOBULIN RATIO 0.8 (0.8-2.0); ALKALINE PHOSPHATASE 69 IU/L (40-150); ANION GAP 11.8 mmol/L (8-16); BLOOD UREA NITROGEN 15 mg/dL (7-26); BUN/CREATININE RATIO 14 (6-25); CALCIUM 8.4 mg/dL (8.4-10.2); CARBON DIOXIDE 26 mmol/L (22-29); CHLORIDE 105 mmol/L (98-107); CREATININE, SERUM 1.06 mg/dL (0.72-1.25); EST GLOMERULAR FILTRATION RATE > 60 ML/MIN (60-); GLUCOSE 116 mg/dL (74-118); POTASSIUM 3.8 mmol/L (3.5-5.1); SODIUM 139 mmol/L (136-145)
[2021-02-28] MEDS: HYDROCODONE/APAP 10MG-325MG TAB PO PRN ×3 (08:41→22:31)
[2021-02-28] MEDS: INSULIN GLARGINE 100 UNITS/ML VIAL SQ SCH ×2 (08:45→21:00)
[2021-02-28] MEDS: VANCOMYCIN 1GM/NS 250 ML 250 ML IV SCH ×2 (09:00→21:00)
[2021-02-28] MEDS: PROMETHAZINE 25MG/ NS 50ML (IV) IV PRN (16:53)
[2021-02-28] MEDS: ATORVASTATIN 20 MG TAB PO SCH (21:00)
[2021-03-01 00:57] VITALS: BP 92/96
[2021-03-01] MEDS: PIPERACILLIN/TAZOBAC 3.375 GM in SODIUM CHLORIDE 0.9% 50ML 50 ML IV SCH ×3 (01:00→11:33)
[2021-03-01 04:00] VITALS: BP 102/67
[2021-03-01 08:11] VITALS: BP 137/80
[2021-03-01 08:42] VITALS: BP 137/80
[2021-03-01] MEDS: VANCOMYCIN 1GM/NS 250 ML 250 ML IV SCH (08:47)
[2021-03-01] MEDS: INSULIN GLARGINE 100 UNITS/ML VIAL SQ SCH (08:50)
[2021-03-01 12:08] VITALS: BP 141/94
[2021-03-01] MEDS ORDERED: doxycline PO (13:20)
[2021-03-01] MEDS ORDERED: CIPRO500 MG PO (13:21)
== END 2021-03-01 14:52 | disposition home or self-care (01) | DRG 988 ==
LOC: MED/SURG2 15:40
PROVIDERS: ADMIT Internal Medicine; ATTEND Internal Medicine
PROC: 0SBP0ZZ Excision of Right Toe Phalangeal Joint, Open Approach (ICD-10-PCS; 2021-02-26)
PROC: 0QBQ0ZX Excision of Right Toe Phalanx, Open Approach, Diagnostic (ICD-10-PCS; principal; 2021-02-26 06:30)
DX: E11.69 Type 2 diabetes mellitus with other specified complication (principal); M00.9 Pyogenic arthritis, unspecified; M86.171 Other acute osteomyelitis, right ankle and foot; L03.115 Cellulitis of right lower limb; M84.477A Pathological fracture, right toe(s), initial encounter for fracture; E66.01 Morbid (severe) obesity due to excess calories; Z68.35 Body mass index [BMI] 35.0-35.9, adult; E78.5 Hyperlipidemia, unspecified; E11.621 Type 2 diabetes mellitus with foot ulcer; L97.514 Non-pressure chronic ulcer of other part of right foot with necrosis of bone
CPT/HCPCS: 36415; 71045; 80053; 80202; 82948; 83735; 85025; 85651; 86140; 87040; 87071; 87075; 87205; 88305; 88307; 88311; 93005; 93925; 97139; 99251; J1815; J2001; J2250; J2370; J2405; J2543; J2550; J3010; J3370; J7030; J7050; U0002

== ENCOUNTER 2021-08-21 18:37 | Inpatient (IN) | payer OTHER ==
[~2021-08-21] VITALS: Ht 180.3 cm; Wt 115.7 kg
[~2021-08-21 18:37] MED LIST changes: +CIPRO500 MG PO; +LANTUS 3ML100 UNITS/ SC; +doxycline PO
[2021-08-21] MEDS ORDERED: ONDANSETRON HCL INJ 2MG/ML 2ML 2 MG/ML VIAL IV STA (19:09)
[2021-08-21] MEDS ORDERED: MORPHINE SULFATE INJ 4 MG/ML INJ 1ML IV STA (19:09)
[2021-08-21 19:14] LABS: BASOPHILS # (AUTO) 0.1 (0.0-0.1); BASOPHILS % 0.4 % (0.0-1.0); EOSINOPHILS # (AUTO) 0.2 (0.0-0.4); EOSINOPHILS % 1.1 % (0.0-6.0); HEMATOCRIT 47.1 % (38.2-49.6); HEMOGLOBIN 16.1 g/dL (14.0-18.0); LYMPHOCYTES # (AUTO) 2.6 (1.0-3.2); LYMPHOCYTES % 15.2 % (18.0-39.1); MEAN CORPUSCULAR HEMOGLOBIN 29.7 pg (28-32); MEAN CORPUSCULAR HGB CONC 34.2 g/dL (31-35); MEAN CORPUSCULAR VOLUME 86.9 fL (81-99); MONOCYTES # (AUTO) 1.2 (0.2-0.8); MONOCYTES % 6.9 % (4.4-11.3); NEUTROPHILS # (AUTO) 12.8 (2.1-6.9); NEUTROPHILS % 75.7 % (38.7-80.0); PLATELET COUNT 216 x10e3/uL (140-360); RED BLOOD COUNT 5.42 x10e6/uL (4.3-5.7); RED CELL DISTRIBUTION WIDTH 12.9 % (11.7-14.4)
[2021-08-21] MEDS ORDERED: SODIUM CHLORIDE 0.9% 1000ML 1,000 ML IV ONE (19:15)
[2021-08-21] MEDS ORDERED: PIPERACILLIN/TAZOBACTAM 3.375 GM in SODIUM CHLORIDE 0.9% 50ML 50 ML IV ONE (19:15)
[2021-08-21] MEDS ORDERED: MORPHINE SULFATE INJ 4 MG/ML INJ 1ML ONE (19:23)
[2021-08-21] MEDS ORDERED: PIPERACILLIN/TAZOBACTAM 3.375 GM VIAL ONE (19:23)
[2021-08-21 19:32] LABS: ALBUMIN 3.7 g/dL (3.5-5.0); ALBUMIN/GLOBULIN RATIO 0.8 (0.8-2.0); CALCIUM 8.8 mg/dL (8.4-10.2); CREATININE, SERUM 1.25 mg/dL (0.72-1.25)
[2021-08-21] MEDS: SODIUM CHLORIDE 0.9% 1000ML 1,000 ML IV SCH ×2 (19:34→20:15)
[2021-08-21] MEDS ORDERED: CEFTRIAXONE 1 GM VIAL IV ONE (20:45)
[2021-08-21] MEDS: METRONIDAZOLE 500MG/NS 100ML 100 ML IV SCH (22:00)
[2021-08-21 23:00] VITALS: BP 156/76
[2021-08-21] MEDS: MORPHINE SULFATE INJ 4 MG/ML INJ 1ML IV PRN (23:25)
[2021-08-21 23:45] VITALS: BP 156/76
[2021-08-22] VITALS (8 sets, daily range): BP systolic 94–156; BP diastolic 53–76
[2021-08-22] MEDS: SODIUM CHLORIDE 0.9% 1000ML 1,000 ML IV SCH ×5 (03:00→21:16)
[2021-08-22] MEDS: ONDANSETRON HCL INJ 2MG/ML 2ML 2 MG/ML VIAL IV PRN ×2 (04:33→08:49)
[2021-08-22] MEDS: MORPHINE SULFATE INJ 4 MG/ML INJ 1ML IV PRN ×2 (04:33→08:49)
[2021-08-22] MEDS: METRONIDAZOLE 500MG/NS 100ML 100 ML IV SCH ×3 (05:06→22:27)
[2021-08-22 06:09] LABS: BASOPHILS # (AUTO) 0.1 (0.0-0.1); BASOPHILS % 0.3 % (0.0-1.0); EOSINOPHILS # (AUTO) 0.2 (0.0-0.4); EOSINOPHILS % 1.6 % (0.0-6.0); HEMATOCRIT 44.7 % (38.2-49.6); LYMPHOCYTES # (AUTO) 1.4 (1.0-3.2); LYMPHOCYTES % 9.3 % (18.0-39.1); MEAN CORPUSCULAR HEMOGLOBIN 29.4 pg (28-32); MEAN CORPUSCULAR HGB CONC 33.6 g/dL (31-35); MEAN CORPUSCULAR VOLUME 87.5 fL (81-99); MONOCYTES # (AUTO) 1.1 (0.2-0.8); MONOCYTES % 7.8 % (4.4-11.3); NEUTROPHILS # (AUTO) 11.8 (2.1-6.9); NEUTROPHILS % 80.6 % (38.7-80.0); PLATELET COUNT 160 x10e3/uL (140-360); RED BLOOD COUNT 5.11 x10e6/uL (4.3-5.7); RED CELL DISTRIBUTION WIDTH 12.7 % (11.7-14.4)
[2021-08-22 07:32] LABS: ANION GAP 16.8 mmol/L (8-16); CALCIUM 8.2 mg/dL (8.4-10.2); CREATININE, SERUM 0.84 mg/dL (0.72-1.25); POTASSIUM 3.8 mmol/L (3.5-5.1)
[2021-08-22] MEDS ORDERED: ACETAMINOPHEN 1000 MG/100 ML 100 ML IV ONE (12:46)
[2021-08-22] MEDS ORDERED: BUPIVACAINE 0.25% 30ML SDV ONE ×2 (12:47→13:38)
[2021-08-22] MEDS ORDERED: METRONIDAZOLE 500MG/NS 100ML 100 ML IV ONE (12:50)
[2021-08-22] MEDS ORDERED: SUGAMMADEX SODIUM 200 MG/2 ML VIAL IV ONE (14:28)
[2021-08-22] MEDS ORDERED: NALOXONE HCL INJ 0.4 MG/ML AMP IV PRN (16:00)
[2021-08-22] MEDS ORDERED: DEXTROSE 50% SYRINGE 50 ML IV PRN (16:15)
[2021-08-22] MEDS ORDERED: HYDROMORPHONE 0.2MG/ML-SOD CHL 30ML PCA SYRINGE IV ONE (16:22)
[2021-08-22] MEDS ORDERED: ONDANSETRON HCL INJ 2MG/ML 2ML 2 MG/ML VIAL ONE (16:33)
[2021-08-22] MEDS ORDERED: METOCLOPRAMIDE HCL 10 MG/2ML VIAL ONE (16:33)
[2021-08-22] MEDS ORDERED: FENTANYL CITRATE/PF 100MCG/2 ML INJ ONE (16:37)
[2021-08-22] MEDS: INSULIN REGULAR, HUMAN 100 UNIT/1 ML SQ SCH (17:24)
[2021-08-22] MEDS: CEFTRIAXONE 2 GM in SODIUM CHLORIDE 0.9% 100 ML IV SCH (20:56)
[2021-08-23] VITALS (8 sets, daily range): BP systolic 107–126; BP diastolic 63–70
[2021-08-23] MEDS: ONDANSETRON HCL INJ 2MG/ML 2ML 2 MG/ML VIAL IV PRN ×5 (00:50→20:48)
[2021-08-23] MEDS: HYDROMORPHONE 0.2MG/ML-SOD CHL 30ML PCA SYRINGE IV PRN (04:24)
[2021-08-23] MEDS: METRONIDAZOLE 500MG/NS 100ML 100 ML IV SCH ×3 (05:09→22:30)
[2021-08-23] MEDS: INSULIN REGULAR, HUMAN 100 UNIT/1 ML SQ SCH ×4 (05:35→18:00)
[2021-08-23 06:03] LABS: BASOPHILS % 0.1 % (0.0-1.0); HEMATOCRIT 39.6 % (38.2-49.6); HEMOGLOBIN 13.1 g/dL (14.0-18.0); LYMPHOCYTES # (AUTO) 0.9 (1.0-3.2); LYMPHOCYTES % 6.1 % (18.0-39.1); MEAN CORPUSCULAR HEMOGLOBIN 29.6 pg (28-32); MEAN CORPUSCULAR HGB CONC 33.1 g/dL (31-35); MEAN CORPUSCULAR VOLUME 89.4 fL (81-99); MONOCYTES % 6.9 % (4.4-11.3); NEUTROPHILS # (AUTO) 12.7 (2.1-6.9); NEUTROPHILS % 86.2 % (38.7-80.0); PLATELET COUNT 192 x10e3/uL (140-360); RED BLOOD COUNT 4.43 x10e6/uL (4.3-5.7); RED CELL DISTRIBUTION WIDTH 12.8 % (11.7-14.4)
[2021-08-23 06:48] LABS: ANION GAP 18.4 mmol/L (8-16); CALCIUM 7.7 mg/dL (8.4-10.2); CREATININE, SERUM 1.18 mg/dL (0.72-1.25); POTASSIUM 4.4 mmol/L (3.5-5.1)
[2021-08-23] MEDS: SODIUM CHLORIDE 0.9% 1000ML 1,000 ML IV SCH ×3 (08:26→20:49)
[2021-08-23] MEDS: CEFTRIAXONE 2 GM in SODIUM CHLORIDE 0.9% 100 ML IV SCH (08:35)
[2021-08-24] MEDS: ONDANSETRON HCL INJ 2MG/ML 2ML 2 MG/ML VIAL IV PRN ×2 (01:46→06:32)
[2021-08-24 04:45] VITALS: BP 135/75
[2021-08-24] MEDS: INSULIN REGULAR, HUMAN 100 UNIT/1 ML SQ SCH ×5 (06:00→23:51)
[2021-08-24] MEDS: METRONIDAZOLE 500MG/NS 100ML 100 ML IV SCH ×3 (06:06→21:35)
[2021-08-24 06:38] LABS: BASOPHILS % 0.1 % (0.0-1.0); EOSINOPHILS % 0.3 % (0.0-6.0); HEMATOCRIT 40.5 % (38.2-49.6); LYMPHOCYTES % 9.3 % (18.0-39.1); MEAN CORPUSCULAR HEMOGLOBIN 28.8 pg (28-32); MEAN CORPUSCULAR HGB CONC 32.1 g/dL (31-35); MEAN CORPUSCULAR VOLUME 89.8 fL (81-99); MONOCYTES # (AUTO) 0.9 (0.2-0.8); NEUTROPHILS % 81.8 % (38.7-80.0); PLATELET COUNT 212 x10e3/uL (140-360); RED BLOOD COUNT 4.51 x10e6/uL (4.3-5.7); RED CELL DISTRIBUTION WIDTH 12.9 % (11.7-14.4)
[2021-08-24 06:40] LABS: ANION GAP 16.3 mmol/L (8-16); CALCIUM 8.4 mg/dL (8.4-10.2); CREATININE, SERUM 0.85 mg/dL (0.72-1.25); POTASSIUM 4.3 mmol/L (3.5-5.1)
[2021-08-24] MEDS: HYDROMORPHONE 0.2MG/ML-SOD CHL 30ML PCA SYRINGE IV PRN (07:03)
[2021-08-24 08:33] VITALS: BP 123/75
[2021-08-24 08:42] VITALS: BP 123/75
[2021-08-24] MEDS: CEFTRIAXONE 2 GM in SODIUM CHLORIDE 0.9% 100 ML IV SCH (08:51)
[2021-08-24] MEDS ORDERED: HYDROMORPHONE 1MG/1ML INJ IV PRN (11:30)
[2021-08-24 12:19] VITALS: BP 145/78
[2021-08-24] MEDS: HYDROCODONE/APAP 7.5MG-325MG 1 EA TAB PO PRN ×2 (14:18→18:15)
[2021-08-24 16:33] VITALS: BP 134/74
[2021-08-24 20:02] VITALS: BP 121/66
[2021-08-24] MEDS: SODIUM CHLORIDE 0.9% 1000ML 1,000 ML IV SCH (23:46)
[2021-08-25] VITALS (9 sets, daily range): BP systolic 112–169; BP diastolic 75–91
[2021-08-25] MEDS: ONDANSETRON HCL INJ 2MG/ML 2ML 2 MG/ML VIAL IV PRN ×2 (00:30→05:55)
[2021-08-25] MEDS: HYDROCODONE/APAP 7.5MG-325MG 1 EA TAB PO PRN ×5 (00:30→21:06)
[2021-08-25] MEDS: METRONIDAZOLE 500MG/NS 100ML 100 ML IV SCH ×3 (05:33→22:10)
[2021-08-25] MEDS: INSULIN REGULAR, HUMAN 100 UNIT/1 ML SQ SCH ×5 (05:48→21:00)
[2021-08-25 07:26] LABS: BASOPHILS # (AUTO) 0.1 (0.0-0.1); BASOPHILS % 0.6 % (0.0-1.0); EOSINOPHILS # (AUTO) 0.3 (0.0-0.4); EOSINOPHILS % 3.1 % (0.0-6.0); HEMATOCRIT 41.5 % (38.2-49.6); HEMOGLOBIN 13.7 g/dL (14.0-18.0); LYMPHOCYTES # (AUTO) 1.7 (1.0-3.2); MEAN CORPUSCULAR HEMOGLOBIN 28.8 pg (28-32); MEAN CORPUSCULAR VOLUME 87.4 fL (81-99); MONOCYTES # (AUTO) 0.7 (0.2-0.8); MONOCYTES % 8.1 % (4.4-11.3); NEUTROPHILS # (AUTO) 6.2 (2.1-6.9); NEUTROPHILS % 68.4 % (38.7-80.0); PLATELET COUNT 214 x10e3/uL (140-360); RED BLOOD COUNT 4.75 x10e6/uL (4.3-5.7); RED CELL DISTRIBUTION WIDTH 12.4 % (11.7-14.4)
[2021-08-25 07:38] LABS: ANION GAP 12.8 mmol/L (8-16); CALCIUM 8.4 mg/dL (8.4-10.2); CREATININE, SERUM 0.76 mg/dL (0.72-1.25); POTASSIUM 3.8 mmol/L (3.5-5.1)
[2021-08-25] MEDS: CEFTRIAXONE 2 GM in SODIUM CHLORIDE 0.9% 100 ML IV SCH (08:22)
[2021-08-25] MEDS ORDERED: MAGNESIUM HYDROXIDE 30 ML UDC PO PRN (16:15)
[2021-08-25] MEDS ORDERED: KETOROLAC TROMETHAMINE 30 MG/ML VIAL IV PRN (16:15)
[2021-08-25] MEDS ORDERED: BISACODYL 10 MG SUPP PR ONE (17:30)
[2021-08-25] MEDS ORDERED: MAGNESIUM HYDROXIDE 30 ML UDC PO ONE (20:00)
[2021-08-26] MEDS: SODIUM CHLORIDE 0.9% 1000ML 1,000 ML IV SCH ×3 (01:52→02:22)
[2021-08-26] MEDS: ONDANSETRON HCL INJ 2MG/ML 2ML 2 MG/ML VIAL IV PRN ×3 (04:22→11:39)
[2021-08-26 05:33] VITALS: BP 158/92
[2021-08-26] MEDS: METRONIDAZOLE 500MG/NS 100ML 100 ML IV SCH (06:33)
[2021-08-26] MEDS: INSULIN REGULAR, HUMAN 100 UNIT/1 ML SQ SCH ×3 (07:30→16:48)
[2021-08-26 08:25] VITALS: BP 110/72
[2021-08-26 09:00] VITALS: BP 110/72
[2021-08-26] MEDS: CEFTRIAXONE 2 GM in SODIUM CHLORIDE 0.9% 100 ML IV SCH (09:10)
[2021-08-26] MEDS: BISACODYL 10 MG SUPP PR ONE ×2 (09:10→09:21)
[2021-08-26 11:07] VITALS: BP 144/79
[2021-08-26] MEDS: HYDROCODONE/APAP 7.5MG-325MG 1 EA TAB PO PRN (11:39)
[2021-08-26 14:54] VITALS: BP 155/84
[2021-08-26] MEDS ORDERED: AUGMENTIN 500-1 EACH PO (18:18)
== END 2021-08-26 19:15 | disposition home or self-care (01) | DRG 343 ==
LOC: ER 18:51 → ERHOLD 20:08 → MED/SURG 23:06 → OBSVTOIN 08-22 16:02 → MED/SURG2 08-25 17:44
PROVIDERS: ADMIT Family Medicine; ATTEND Family Medicine
PROC: 0WJG4ZZ Inspection of Peritoneal Cavity, Percutaneous Endoscopic Approach (ICD-10-PCS; 2021-08-22)
PROC: 0DTJ0ZZ Resection of Appendix, Open Approach (ICD-10-PCS; principal; 2021-08-22 13:00)
DX: K35.891 Other acute appendicitis without perforation, with gangrene (principal); E11.9 Type 2 diabetes mellitus without complications; E66.9 Obesity, unspecified; F17.210 Nicotine dependence, cigarettes, uncomplicated; Z79.4 Long term (current) use of insulin; K76.0 Fatty (change of) liver, not elsewhere classified; E78.5 Hyperlipidemia, unspecified; I10 Essential (primary) hypertension; Z68.35 Body mass index [BMI] 35.0-35.9, adult; Z53.31 Laparoscopic surgical procedure converted to open procedure; Z20.822 Contact with and (suspected) exposure to COVID-19
CPT/HCPCS: 36415; 74022; 74176; 80048; 80053; 82948; 83605; 85025; 86850; 86900; 87040; 88304; 93005; 99284; C1766; G0378; J0696; J1170; J1817; J1885; J2270; J2405; J2543; J2765; J3010; J7030; J7050; U0002

== ENCOUNTER 2022-04-21 11:57 | Emergency (ER) | payer BC, OTHER ==
[~2022-04-21] VITALS: Ht 180.3 cm; Wt 115.7 kg
[~2022-04-21 11:57] MED LIST changes: +AUGMENTIN 500-1 EACH PO
[2022-04-21 12:27] LABS: BASOPHILS # (AUTO) 0.1 (0.0-0.1); EOSINOPHILS # (AUTO) 0.3 (0.0-0.4); EOSINOPHILS % 3.6 % (0.0-6.0); HEMATOCRIT 47.7 % (38.2-49.6); LYMPHOCYTES # (AUTO) 2.9 (1.0-3.2); LYMPHOCYTES % 34.2 % (18.0-39.1); MEAN CORPUSCULAR HEMOGLOBIN 29.4 pg (28-32); MEAN CORPUSCULAR HGB CONC 33.5 g/dL (31-35); MEAN CORPUSCULAR VOLUME 87.5 fL (81-99); MONOCYTES # (AUTO) 0.6 (0.2-0.8); MONOCYTES % 6.8 % (4.4-11.3); NEUTROPHILS # (AUTO) 4.5 (2.1-6.9); PLATELET COUNT 219 x10e3/uL (140-360); RED BLOOD COUNT 5.45 x10e6/uL (4.3-5.7); RED CELL DISTRIBUTION WIDTH 12.6 % (11.7-14.4)
[2022-04-21] MEDS ORDERED: KETOROLAC TROMETHAMINE 30 MG/ML VIAL IV STA (13:32)
[2022-04-21 14:03] LABS: INR 0.94; PROTHROMBIN TIME 13.4 seconds (11.9-14.5)
[2022-04-21 14:04] LABS: PARTIAL THROMBOPLASTIN TIME 25.5 seconds (23.8-35.5)
[2022-04-21 14:14] LABS: ALANINE AMINOTRANSFERASE 70 IU/L (0-55); ALBUMIN 3.4 g/dL (3.5-5.0); ALBUMIN/GLOBULIN RATIO 0.8 (0.8-2.0); ALKALINE PHOSPHATASE 92 IU/L (40-150); ANION GAP 12.3 mmol/L (8-16); BLOOD UREA NITROGEN 17 mg/dL (7-26); BUN/CREATININE RATIO 15 (6-25); CALCIUM 8.3 mg/dL (8.4-10.2); CARBON DIOXIDE 24 mmol/L (22-29); CHLORIDE 105 mmol/L (98-107); CREATINE KINASE 335 IU/L (30-200); CREATININE, SERUM 1.11 mg/dL (0.72-1.25); EST GLOMERULAR FILTRATION RATE 71 ML/MIN (60-); GLUCOSE 190 mg/dL (74-118); MAGNESIUM 2.2 MG/DL (1.3-2.1); POTASSIUM 4.3 mmol/L (3.5-5.1); SODIUM 137 mmol/L (136-145)
[2022-04-21] MEDS ORDERED: SODIUM CHLORIDE 0.9% 1000ML 1,000 ML IV STA (14:37)
[2022-04-21] MEDS ORDERED: SODIUM CHLORIDE 0.9% 1000ML 1,000 ML ONE (14:58)
[2022-04-21 15:50] LABS: CREATINE KINASE 336 IU/L (30-200)
[2022-04-21 16:43] VITALS: BP 159/96
== END 2022-04-21 16:45 | disposition home or self-care (01) ==
LOC: ER 12:20
DX: R07.89 Other chest pain (principal); E11.65 Type 2 diabetes mellitus with hyperglycemia; Z20.822 Contact with and (suspected) exposure to COVID-19
CPT/HCPCS: 36415; 71045; 80053; 82550; 82553; 83735; 83880; 84484; 85025; 85610; 85730; 93005; 99284; C9113; J1885; J7030; U0002

== ENCOUNTER 2022-08-14 09:48 | Inpatient (IN) | payer BC ==
[~2022-08-14] VITALS: Ht 180.3 cm; Wt 115.7 kg
[2022-08-14 10:38] LABS: BASOPHILS # (AUTO) 0.1 (0.0-0.1); BASOPHILS % 0.4 % (0.0-1.0); EOSINOPHILS # (AUTO) 0.2 (0.0-0.4); EOSINOPHILS % 1.5 % (0.0-6.0); HEMATOCRIT 45.9 % (38.2-49.6); HEMOGLOBIN 15.5 g/dL (14.0-18.0); LYMPHOCYTES # (AUTO) 1.9 (1.0-3.2); LYMPHOCYTES % 16.2 % (18.0-39.1); MEAN CORPUSCULAR HEMOGLOBIN 29.3 pg (28-32); MEAN CORPUSCULAR HGB CONC 33.8 g/dL (31-35); MEAN CORPUSCULAR VOLUME 86.8 fL (81-99); MONOCYTES # (AUTO) 0.9 (0.2-0.8); MONOCYTES % 7.5 % (4.4-11.3); NEUTROPHILS # (AUTO) 8.7 (2.1-6.9); NEUTROPHILS % 74.1 % (38.7-80.0); PLATELET COUNT 223 x10e3/uL (140-360); RED BLOOD COUNT 5.29 x10e6/uL (4.3-5.7); RED CELL DISTRIBUTION WIDTH 12.2 % (11.7-14.4)
[2022-08-14] MEDS ORDERED: SODIUM CHLORIDE 0.9% 1000ML 1,000 ML IV ONE (10:45)
[2022-08-14 10:56] LABS: INR 0.87; PROTHROMBIN TIME 12.7 seconds (11.9-14.5)
[2022-08-14 10:57] LABS: PARTIAL THROMBOPLASTIN TIME 26.6 seconds (23.8-35.5)
[2022-08-14] MEDS ORDERED: Vancomycin IV 1 GM in SODIUM CHLORIDE 0.9% 250ML 250 ML IV ONE (11:00)
[2022-08-14] MEDS ORDERED: INSULIN REGULAR, HUMAN 100 UNIT/1 ML IV ONE (11:00)
[2022-08-14] MEDS ORDERED: INSULIN REGULAR, HUMAN 100 UNIT/1 ML ONE (11:02)
[2022-08-14 11:14] LABS: ALBUMIN 3.3 g/dL (3.5-5.0); ALBUMIN/GLOBULIN RATIO 0.7 (0.8-2.0); ANION GAP 18.1 mmol/L (8-16); CALCIUM 9.4 mg/dL (8.4-10.2); CREATININE, SERUM 1.41 mg/dL (0.72-1.25); POTASSIUM 4.1 mmol/L (3.5-5.1)
[2022-08-14] MEDS ORDERED: DEXTROSE 50% SYRINGE 50 ML IV PRN (12:15)
[2022-08-14] MEDS ORDERED: ONDANSETRON HCL INJ 2MG/ML 2ML 2 MG/ML VIAL IV PRN (12:15)
[2022-08-14 12:43] LABS: CLARITY,URINE CLEAR (CLEAR); COLOR,URINE YELLOW (YELLOW); KETONES,URINE NEGATIVE (NEGATIVE); LEUKOCYTE ESTERASE ,URINE NEGATIVE (NEGATIVE); NITRITE,URINE NEGATIVE (NEGATIVE); PROTEIN,URINE DIPSTICK NEGATIVE (NEGATIVE); URINE UROBILINOGEN 0.2 mg/dL (0.2 - 1)
[2022-08-14 12:48] LABS: BACTERIA,URINE FEW /HPF; EPITHELIAL CELLS,URINE FEW /LPF; RBC,URINE 0-5 /HPF (0-5); WBC,URINE (MAN) 0-5 /HPF (0-5)
[2022-08-14] MEDS ORDERED: SODIUM CHLORIDE 0.9% 1000ML 1,000 ML IV STA ×2 (14:02)
[2022-08-14] MEDS: SODIUM CHLORIDE 0.9% 1000ML 1,000 ML IV SCH (14:19)
[2022-08-14] MEDS: INSULIN LISPRO 100 UNIT/1 ML 3ML VIAL SQ SCH ×2 (17:51→22:13)
[2022-08-14] MEDS: TRAMADOL HCL 50 MG TAB PO PRN (19:46)
[2022-08-14] MEDS: Vancomycin IV 1 GM in SODIUM CHLORIDE 0.9% 250ML 250 ML IV SCH (19:47)
[2022-08-14 20:00] VITALS: BP 129/81
[2022-08-15] VITALS (8 sets, daily range): BP systolic 111–144; BP diastolic 71–86
[2022-08-15] MEDS: SODIUM CHLORIDE 0.9% 1000ML 1,000 ML IV SCH (05:32)
[2022-08-15 05:46] LABS: BASOPHILS # (AUTO) 0.1 (0.0-0.1); BASOPHILS % 0.8 % (0.0-1.0); EOSINOPHILS # (AUTO) 0.3 (0.0-0.4); EOSINOPHILS % 3.3 % (0.0-6.0); HEMOGLOBIN 14.3 g/dL (14.0-18.0); LYMPHOCYTES % 34.3 % (18.0-39.1); MEAN CORPUSCULAR HEMOGLOBIN 29.5 pg (28-32); MEAN CORPUSCULAR HGB CONC 33.3 g/dL (31-35); MEAN CORPUSCULAR VOLUME 88.7 fL (81-99); MONOCYTES # (AUTO) 0.7 (0.2-0.8); MONOCYTES % 8.4 % (4.4-11.3); NEUTROPHILS # (AUTO) 4.6 (2.1-6.9); NEUTROPHILS % 52.9 % (38.7-80.0); PLATELET COUNT 222 x10e3/uL (140-360); RED BLOOD COUNT 4.85 x10e6/uL (4.3-5.7); RED CELL DISTRIBUTION WIDTH 12.2 % (11.7-14.4)
[2022-08-15 06:13] LABS: ALBUMIN 2.7 g/dL (3.5-5.0); ALBUMIN/GLOBULIN RATIO 0.7 (0.8-2.0); ANION GAP 11.9 mmol/L (8-16); CALCIUM 8.5 mg/dL (8.4-10.2); CREATININE, SERUM 0.94 mg/dL (0.72-1.25); POTASSIUM 3.9 mmol/L (3.5-5.1)
[2022-08-15] MEDS: INSULIN LISPRO 100 UNIT/1 ML 3ML VIAL SQ SCH ×4 (09:33→21:49)
[2022-08-15] MEDS: Vancomycin IV 1 GM in SODIUM CHLORIDE 0.9% 250ML 250 ML IV SCH (11:51)
[2022-08-15] MEDS: CEFTRIAXONE 2 GM in SODIUM CHLORIDE 0.9% 100 ML IV SCH (16:57)
[2022-08-15] MEDS: TRAMADOL HCL 50 MG TAB PO PRN (17:05)
[2022-08-16] VITALS (7 sets, daily range): BP systolic 105–141; BP diastolic 71–95
[2022-08-16] MEDS: INSULIN LISPRO 100 UNIT/1 ML 3ML VIAL SQ SCH ×4 (09:09→22:48)
[2022-08-16] MEDS: COLLAGENASE 5 GM TUBE TP SCH (09:10)
[2022-08-16] MEDS: CEFTRIAXONE 2 GM in SODIUM CHLORIDE 0.9% 100 ML IV SCH (13:48)
[2022-08-17] VITALS (8 sets, daily range): BP systolic 101–141; BP diastolic 71–93
[2022-08-17] MEDS: COLLAGENASE 5 GM TUBE TP SCH (08:40)
[2022-08-17] MEDS: INSULIN LISPRO 100 UNIT/1 ML 3ML VIAL SQ SCH ×4 (08:42→21:00)
[2022-08-17] MEDS: Vancomycin IV 1 GM in SODIUM CHLORIDE 0.9% 250ML 250 ML IV SCH (13:58)
[2022-08-18] VITALS (8 sets, daily range): BP systolic 94–148; BP diastolic 65–99
[2022-08-18] MEDS: Vancomycin IV 1 GM in SODIUM CHLORIDE 0.9% 250ML 250 ML IV SCH ×2 (00:30→12:11)
[2022-08-18] MEDS: INSULIN LISPRO 100 UNIT/1 ML 3ML VIAL SQ SCH ×4 (08:43→21:00)
[2022-08-18] MEDS: COLLAGENASE 5 GM TUBE TP SCH (12:12)
[2022-08-18] MEDS ORDERED: ONDANSETRON HCL 4 MG ORAL DISINTEGRATING TAB PO PRN (15:30)
[2022-08-19] MEDS: Vancomycin IV 1 GM in SODIUM CHLORIDE 0.9% 250ML 250 ML IV SCH (01:00)
[2022-08-19 04:00] VITALS: BP 140/82
[2022-08-19] MEDS: INSULIN LISPRO 100 UNIT/1 ML 3ML VIAL SQ SCH ×3 (08:23→16:45)
[2022-08-19 08:31] VITALS: BP 117/74
[2022-08-19] MEDS: COLLAGENASE 5 GM TUBE TP SCH (09:00)
[2022-08-19 11:53] VITALS: BP 117/76
[2022-08-19] MEDS ORDERED: Vancomycin IV 1.25 GM in SODIUM CHLORIDE 0.9% 250ML 250 ML IV SCH (13:00)
[2022-08-19 15:19] VITALS: BP 117/76
[2022-08-19 15:37] VITALS: BP 132/86
== END 2022-08-19 18:28 | disposition home or self-care (01) | DRG 623 ==
LOC: ER 09:55 → ERHOLD 12:30 → MED/SURG2 17:15
PROVIDERS: ADMIT Family Medicine; ATTEND Family Medicine
PROC: 0JBQ0ZZ Excision of Right Foot Subcutaneous Tissue and Fascia, Open Approach (ICD-10-PCS; principal; 2022-08-18)
PROC: 0JBR0ZZ Excision of Left Foot Subcutaneous Tissue and Fascia, Open Approach (ICD-10-PCS; 2022-08-18)
PROC: 02HV33Z Insertion of Infusion Device into Superior Vena Cava, Percutaneous Approach (ICD-10-PCS; 2022-08-18)
DX: E11.621 Type 2 diabetes mellitus with foot ulcer (principal); L97.518 Non-pressure chronic ulcer of other part of right foot with other specified severity; Z16.24 Resistance to multiple antibiotics; Z79.4 Long term (current) use of insulin; E11.628 Type 2 diabetes mellitus with other skin complications; E11.65 Type 2 diabetes mellitus with hyperglycemia; L03.031 Cellulitis of right toe; I10 Essential (primary) hypertension; E11.40 Type 2 diabetes mellitus with diabetic neuropathy, unspecified; Z89.422 Acquired absence of other left toe(s); Z89.421 Acquired absence of other right toe(s); E66.09 Other obesity due to excess calories; Z68.35 Body mass index [BMI] 35.0-35.9, adult; Z20.822 Contact with and (suspected) exposure to COVID-19; B95.62 Methicillin resistant Staphylococcus aureus infection as the cause of diseases classified elsewhere; B95.7 Other staphylococcus as the cause of diseases classified elsewhere; E86.0 Dehydration
CPT/HCPCS: 0223U; 36415; 36569; 71045; 80053; 80202; 81001; 82948; 83605; 85025; 85610; 85730; 87040; 87071; 87086; 87186; 87205; 99251; 99284; J0696; J1817; J2543; J3370; J7030; J7050

== ENCOUNTER → 2023-06-17 | Outpatient (CLI) | payer BC ==
[~2023-06-17] MED LIST changes: +TOUJEO MAX300 UNIT/1 SQ
[2023-06-17 15:25] LABS: ALBUMIN 3.4 g/dL (3.5-5.0); ALBUMIN/GLOBULIN RATIO 0.7 (0.8-2.0); CALCIUM 9.4 mg/dL (8.4-10.2); CREATININE, SERUM 1.38 mg/dL (0.72-1.25)
== END ==
LOC: WCC 09:20
PROVIDERS: ATTEND Family Medicine Adult Medicine
DX: E11.621 Type 2 diabetes mellitus with foot ulcer (principal); L97.426 Non-pressure chronic ulcer of left heel and midfoot with bone involvement without evidence of necrosis; L97.516 Non-pressure chronic ulcer of other part of right foot with bone involvement without evidence of necrosis; L97.518 Non-pressure chronic ulcer of other part of right foot with other specified severity
CPT/HCPCS: 36415; 80053; 83036; 84134

== ENCOUNTER → 2023-06-18 | Outpatient (CLI) | payer BC | LOC: RAD 10:56 | PROVIDERS: ATTEND Family Medicine Adult Medicine | DX: E11.621 Type 2 diabetes mellitus with foot ulcer (principal); Z01.810 Encounter for preprocedural cardiovascular examination; Z01.818 Encounter for other preprocedural examination | CPT/HCPCS: 71046; 93005 ==

== ENCOUNTER → 2023-09-15 | Outpatient (REF) | payer BC | LOC: WCC 12:00 | PROVIDERS: ATTEND Family Medicine Adult Medicine | DX: E11.621 Type 2 diabetes mellitus with foot ulcer (principal); M86.171 Other acute osteomyelitis, right ankle and foot; L97.516 Non-pressure chronic ulcer of other part of right foot with bone involvement without evidence of necrosis ==

== ENCOUNTER → 2023-09-16 | Outpatient (REF) | payer BC | LOC: WCC 10:16 | PROVIDERS: ATTEND Family Medicine Adult Medicine | DX: E11.621 Type 2 diabetes mellitus with foot ulcer (principal); M86.171 Other acute osteomyelitis, right ankle and foot; L97.516 Non-pressure chronic ulcer of other part of right foot with bone involvement without evidence of necrosis | CPT/HCPCS: 99212; G0277 ==

== ENCOUNTER → 2023-09-23 | Outpatient (REF) | payer BC | LOC: WCC 08:06 | PROVIDERS: ATTEND Family Medicine Adult Medicine | DX: E11.621 Type 2 diabetes mellitus with foot ulcer (principal); M86.171 Other acute osteomyelitis, right ankle and foot; L97.516 Non-pressure chronic ulcer of other part of right foot with bone involvement without evidence of necrosis ==

== ENCOUNTER → 2023-09-24 | Outpatient (REF) | payer BC | LOC: WCC 14:54 | PROVIDERS: ATTEND Family Medicine Adult Medicine | DX: E11.621 Type 2 diabetes mellitus with foot ulcer (principal); L97.516 Non-pressure chronic ulcer of other part of right foot with bone involvement without evidence of necrosis ==

== ENCOUNTER → 2023-09-28 | Outpatient (REF) | payer BC ==
[~2023-09-28] MED LIST changes: +MINERAL OIL/PETROLAT/GLYCERI 6OZ BTL ONE
== END ==
LOC: WCC 08:12
PROVIDERS: ATTEND Family Medicine Adult Medicine
DX: E11.621 Type 2 diabetes mellitus with foot ulcer (principal); M86.171 Other acute osteomyelitis, right ankle and foot; L97.516 Non-pressure chronic ulcer of other part of right foot with bone involvement without evidence of necrosis

== ENCOUNTER → 2023-09-30 | Outpatient (REF) | payer BC ==
[~2023-09-30] MED LIST changes: -MINERAL OIL/PETROLAT/GLYCERI 6OZ BTL ONE
== END ==
LOC: WCC 15:55
PROVIDERS: ATTEND Internal Medicine Infectious Disease
DX: E11.621 Type 2 diabetes mellitus with foot ulcer (principal); M86.171 Other acute osteomyelitis, right ankle and foot; L97.516 Non-pressure chronic ulcer of other part of right foot with bone involvement without evidence of necrosis

== ENCOUNTER → 2023-10-02 | Outpatient (REF) | payer BC | LOC: WCC 11:07 | PROVIDERS: ATTEND Internal Medicine Infectious Disease | DX: E11.621 Type 2 diabetes mellitus with foot ulcer (principal); M86.171 Other acute osteomyelitis, right ankle and foot; L97.516 Non-pressure chronic ulcer of other part of right foot with bone involvement without evidence of necrosis ==

== ENCOUNTER → 2023-10-07 | Outpatient (REF) | payer BC | LOC: WCC 12:44 | PROVIDERS: ATTEND Nurse Practitioner Family | DX: E11.621 Type 2 diabetes mellitus with foot ulcer (principal); M86.171 Other acute osteomyelitis, right ankle and foot; L97.516 Non-pressure chronic ulcer of other part of right foot with bone involvement without evidence of necrosis ==

== ENCOUNTER → 2023-10-09 | Outpatient (REF) | payer BC | LOC: WCC 15:38 | PROVIDERS: ATTEND Nurse Practitioner Family | DX: E11.621 Type 2 diabetes mellitus with foot ulcer (principal); M86.171 Other acute osteomyelitis, right ankle and foot; L97.426 Non-pressure chronic ulcer of left heel and midfoot with bone involvement without evidence of necrosis; L97.516 Non-pressure chronic ulcer of other part of right foot with bone involvement without evidence of necrosis ==

== ENCOUNTER → 2023-10-14 | Outpatient (REF) | payer BC ==
[~2023-10-14] MED LIST changes: +TRYPSIN/BALSAM PERU/CASTOR OIL ONE
== END ==
LOC: WCC 13:37
PROVIDERS: ATTEND Nurse Practitioner Family
DX: E11.621 Type 2 diabetes mellitus with foot ulcer (principal); M86.171 Other acute osteomyelitis, right ankle and foot; L97.516 Non-pressure chronic ulcer of other part of right foot with bone involvement without evidence of necrosis

== ENCOUNTER → 2023-10-19 | Outpatient (REF) | payer BC ==
[~2023-10-19] MED LIST changes: +MINERAL OIL/PETROLAT/GLYCERI 6OZ BTL ONE
== END ==
LOC: WCC 08:23
PROVIDERS: ATTEND Internal Medicine Infectious Disease
DX: E11.621 Type 2 diabetes mellitus with foot ulcer (principal); L97.516 Non-pressure chronic ulcer of other part of right foot with bone involvement without evidence of necrosis

== ENCOUNTER → 2023-10-23 | Outpatient (REF) | payer BC ==
[~2023-10-23] MED LIST changes: -MINERAL OIL/PETROLAT/GLYCERI 6OZ BTL ONE; -TRYPSIN/BALSAM PERU/CASTOR OIL ONE
== END ==
LOC: WCC 09:05
PROVIDERS: ATTEND Nurse Practitioner Family
DX: E11.621 Type 2 diabetes mellitus with foot ulcer (principal); L97.516 Non-pressure chronic ulcer of other part of right foot with bone involvement without evidence of necrosis

== ENCOUNTER 2024-06-01 15:16 | Observation (INO) | payer BC ==
[~2024-06-01] VITALS: Ht 180.3 cm; Wt 115.7 kg
[~2024-06-01 15:16] MED LIST changes: +JARDIANCE25 MG; +ROSUVASTATIN CA40 MG; +TOUJEO SOL300 UNIT/1 SC
[2024-06-01 15:44] LABS: BASOPHILS % 0.2 % (0.0-1.0); EOSINOPHILS % 0.1 % (0.0-6.0); HEMATOCRIT 54.5 % (38.2-49.6); LYMPHOCYTES # (AUTO) 1.5 (1.0-3.2); LYMPHOCYTES % 11.9 % (18.0-39.1); MEAN CORPUSCULAR HEMOGLOBIN 28.5 pg (28-32); MEAN CORPUSCULAR HGB CONC 34.9 g/dL (31-35); MEAN CORPUSCULAR VOLUME 81.8 fL (81-99); MONOCYTES # (AUTO) 0.5 (0.2-0.8); MONOCYTES % 3.7 % (4.4-11.3); NEUTROPHILS # (AUTO) 10.6 (2.1-6.9); NEUTROPHILS % 83.8 % (38.7-80.0); PLATELET COUNT 299 x10e3/uL (140-360); RED BLOOD COUNT 6.66 x10e6/uL (4.3-5.7); RED CELL DISTRIBUTION WIDTH 12.3 % (11.7-14.4)
[2024-06-01] MEDS: SODIUM CHLORIDE 0.9% 1000ML 1,000 ML IV ONE (15:53)
[2024-06-01] MEDS: ONDANSETRON HCL INJ 2MG/ML 2ML 2 MG/ML VIAL IV STA (15:53)
[2024-06-01] MEDS: KETOROLAC TROMETHAMINE 30 MG/ML VIAL IV STA (15:53)
[2024-06-01 17:09] LABS: BILIRUBIN,URINE NEGATIVE (NEGATIVE); CLARITY,URINE CLEAR (CLEAR); COLOR,URINE YELLOW (YELLOW); GLUCOSE, URINE 500 (NEGATIVE); KETONES,URINE 1+ (NEGATIVE); LEUKOCYTE ESTERASE ,URINE NEGATIVE (NEGATIVE); NITRITE,URINE NEGATIVE (NEGATIVE); PH,URINE 6.5 (5 - 7); PROTEIN,URINE DIPSTICK >=300 (NEGATIVE); URINE UROBILINOGEN 0.2 mg/dL (0.2 - 1)
[2024-06-01 17:17] LABS: BACTERIA,URINE FEW /HPF; EPITHELIAL CELLS,URINE MODERATE /LPF; MUCUS,URINE MODERATE (RARE); RBC,URINE 0-5 /HPF (0-5); WBC,URINE (MAN) 0-5 /HPF (0-5)
[2024-06-01 17:18] LABS: YEAST,URINE RARE
[2024-06-01 17:20] LABS: ALBUMIN 4.2 g/dL (3.5-5.0); ALBUMIN/GLOBULIN RATIO 0.8 (0.8-2.0); ANION GAP 25.4 mmol/L (8-16); BILIRUBIN,TOTAL 1.1 mg/dL (0.2-1.2); CALCIUM 10.1 mg/dL (8.4-10.2); CREATININE, SERUM 1.88 mg/dL (0.72-1.25); POTASSIUM 4.4 mmol/L (3.5-5.1); TOTAL PROTEIN 9.5 g/dL (6.5-8.1)
[2024-06-01] MEDS: SODIUM CHLORIDE 0.9% IV SCH (17:25)
[2024-06-01] MEDS: METOCLOPRAMIDE HCL 10 MG/2ML VIAL IV ONE (17:27)
[2024-06-01] MEDS ORDERED: IOPAMIDOL 370 MG/ML 100 ML INFUS..BTL INJ ONE (17:29)
[2024-06-01] MEDS ORDERED: ONDANSETRON HCL INJ 2MG/ML 2ML 2 MG/ML VIAL IV PRN (18:00)
[2024-06-01 18:20] VITALS: TEMP 99
[2024-06-01] MEDS: INSULIN REGULAR, HUMAN 100 UNIT/1 ML IV ONE (18:27)
[2024-06-01] MEDS: SODIUM CHLORIDE 0.9% 1000ML 1,000 ML IV SCH (19:06)
[2024-06-01 19:20] VITALS: PULSE 113; RESP 15
[2024-06-01 20:30] VITALS: BP 135/88; PULSE 110; RESP 18; TEMP 97.9; O2SAT 98
[2024-06-01 21:00] VITALS: BP 135/88; PULSE 110; RESP 18; TEMP 97.9; O2SAT 100
[2024-06-01 22:36] VITALS: BP 135/88; PULSE 110; RESP 18; TEMP 97.9; O2SAT 100
[2024-06-02] VITALS (8 sets, daily range): BP systolic 111–161; BP diastolic 73–93; PULSE 88–116; RESP 17–18; TEMP 98–98.4; O2SAT 96–99
[2024-06-02] MEDS: ONDANSETRON HCL INJ 2MG/ML 2ML 2 MG/ML VIAL IV PRN (04:42)
[2024-06-02 05:16] LABS: BASOPHILS # (AUTO) 0.1 (0.0-0.1); BASOPHILS % 0.6 % (0.0-1.0); EOSINOPHILS # (AUTO) 0.2 (0.0-0.4); EOSINOPHILS % 1.5 % (0.0-6.0); HEMATOCRIT 50.2 % (38.2-49.6); HEMOGLOBIN 16.2 g/dL (14.0-18.0); LYMPHOCYTES # (AUTO) 3.2 (1.0-3.2); LYMPHOCYTES % 20.3 % (18.0-39.1); MEAN CORPUSCULAR HEMOGLOBIN 27.8 pg (28-32); MEAN CORPUSCULAR HGB CONC 32.3 g/dL (31-35); MEAN CORPUSCULAR VOLUME 86.1 fL (81-99); MONOCYTES # (AUTO) 1.4 (0.2-0.8); MONOCYTES % 9.2 % (4.4-11.3); NEUTROPHILS # (AUTO) 10.6 (2.1-6.9); PLATELET COUNT 232 x10e3/uL (140-360); RED BLOOD COUNT 5.83 x10e6/uL (4.3-5.7); RED CELL DISTRIBUTION WIDTH 12.4 % (11.7-14.4); WHITE BLOOD COUNT 15.53 x10e3/uL (4.8-10.8)
[2024-06-02 05:42] LABS: ALBUMIN 3.3 g/dL (3.5-5.0); ALBUMIN/GLOBULIN RATIO 0.8 (0.8-2.0); ANION GAP 18.2 mmol/L (8-16); CALCIUM 8.2 mg/dL (8.4-10.2); CREATININE, SERUM 1.39 mg/dL (0.72-1.25); TOTAL PROTEIN 7.4 g/dL (6.5-8.1)
[2024-06-02 05:45] LABS: POTASSIUM 3.2 mmol/L (3.5-5.1)
[2024-06-02] MEDS ORDERED: DEXTROSE 50% SYRINGE 50 ML IV PRN (07:30)
[2024-06-02] MEDS: INSULIN LISPRO 100 UNIT/1 ML 3ML VIAL SQ SCH (07:53)
[2024-06-02] MEDS: INSULIN GLARGINE 100 UNITS/ML VIAL SQ SCH (07:56)
[2024-06-02] MEDS: PROMETHAZINE 12.5MG/ NACL 0.9% 12.5 MG/50 ML BAG IV PRN (09:40)
[2024-06-02] MEDS: Morphine 4mg INJECTION 4 MG/ML INJ IV PRN (11:33)
[2024-06-02] MEDS: ENOXAPARIN SOD INJ 40 MG/0.4 ML SYR SC SCH (17:00)
[2024-06-02] MEDS: ATORVASTATIN 40 MG TAB PO SCH (21:13)
[2024-06-03] VITALS (8 sets, daily range): BP systolic 89–153; BP diastolic 66–93; PULSE 89–114; RESP 17–18; TEMP 98–98.3; O2SAT 96–100
[2024-06-03 06:13] LABS: BASOPHILS # (AUTO) 0.1 (0.0-0.1); BASOPHILS % 0.8 % (0.0-1.0); EOSINOPHILS # (AUTO) 0.3 (0.0-0.4); EOSINOPHILS % 2.4 % (0.0-6.0); HEMATOCRIT 47.5 % (38.2-49.6); HEMOGLOBIN 15.8 g/dL (14.0-18.0); LYMPHOCYTES # (AUTO) 2.8 (1.0-3.2); MEAN CORPUSCULAR HEMOGLOBIN 28.6 pg (28-32); MEAN CORPUSCULAR HGB CONC 33.3 g/dL (31-35); MEAN CORPUSCULAR VOLUME 85.9 fL (81-99); MONOCYTES # (AUTO) 0.8 (0.2-0.8); MONOCYTES % 7.6 % (4.4-11.3); NEUTROPHILS # (AUTO) 6.7 (2.1-6.9); NEUTROPHILS % 62.9 % (38.7-80.0); PLATELET COUNT 203 x10e3/uL (140-360); RED BLOOD COUNT 5.53 x10e6/uL (4.3-5.7); RED CELL DISTRIBUTION WIDTH 12.2 % (11.7-14.4); WHITE BLOOD COUNT 10.67 x10e3/uL (4.8-10.8)
[2024-06-03 07:09] LABS: ALBUMIN 3.4 g/dL (3.5-5.0); ALBUMIN/GLOBULIN RATIO 0.8 (0.8-2.0); ANION GAP 16.5 mmol/L (8-16); CALCIUM 8.3 mg/dL (8.4-10.2); CREATININE, SERUM 1.29 mg/dL (0.72-1.25); MAGNESIUM 2.1 MG/DL (1.3-2.1); POTASSIUM 3.5 mmol/L (3.5-5.1); TOTAL PROTEIN 7.5 g/dL (6.5-8.1)
[2024-06-03] MEDS: METOCLOPRAMIDE HCL 10 MG/2ML VIAL IV SCH (23:07)
[2024-06-04 03:38] VITALS: BP 128/84; PULSE 99; RESP 17; TEMP 98.3; O2SAT 100
[2024-06-04 08:21] VITALS: BP 106/69; PULSE 90; RESP 18; TEMP 97.6; O2SAT 100
[2024-06-04 08:44] VITALS: BP 106/69; PULSE 90; RESP 18; TEMP 97.6; O2SAT 100
[2024-06-04 11:34] VITALS: BP 141/89; PULSE 95; RESP 20; TEMP 98.7; O2SAT 100
[2024-06-04 15:49] VITALS: BP 127/50; PULSE 80; RESP 18; TEMP 98.1; O2SAT 97
== END 2024-06-04 13:14 | disposition home or self-care (01) ==
LOC: ER 15:26 → ERHOLD 18:02 → MED/SURG3 20:21
PROVIDERS: ADMIT Family Medicine; ATTEND Family Medicine
DX: R65.10 Systemic inflammatory response syndrome (SIRS) of non-infectious origin without acute organ dysfunction (principal); D72.829 Elevated white blood cell count, unspecified; R11.2 Nausea with vomiting, unspecified; E11.65 Type 2 diabetes mellitus with hyperglycemia; R10.9 Unspecified abdominal pain; R74.02 Elevation of levels of lactic acid dehydrogenase [LDH]; I10 Essential (primary) hypertension; E78.5 Hyperlipidemia, unspecified; B95.1 Streptococcus, group B, as the cause of diseases classified elsewhere; Z89.422 Acquired absence of other left toe(s); Z89.421 Acquired absence of other right toe(s); Z79.4 Long term (current) use of insulin; Z79.84 Long term (current) use of oral hypoglycemic drugs; Z79.899 Other long term (current) drug therapy; Z68.35 Body mass index [BMI] 35.0-35.9, adult
CPT/HCPCS: 36415 ×4; 71046; 74178; 80053 ×3; 81001; 82948 ×4; 83605; 83690; 83735; 85025 ×3; 87040; 87086; 93005; 99284; C9113 ×2; G0378 ×4; J1650 ×2; J1815; J1885; J2270 ×3; J2405 ×2; J2543 ×4; J2550 ×2; J2765 ×3; J7030 ×4; Q9967; U0002; J2470

== ENCOUNTER 2025-03-21 19:29 | Inpatient (IN) | payer BC ==
[~2025-03-21] VITALS: Ht 180.3 cm; Wt 117.9 kg
[2025-03-21 19:51] VITALS: TEMP 98.2
[2025-03-21 20:05] LABS: BASOPHILS # (AUTO) 0.1 (0.0-0.1); BASOPHILS % 1.2 % (0.0-1.0); EOSINOPHILS # (AUTO) 0.4 (0.0-0.4); EOSINOPHILS % 3.6 % (0.0-6.0); HEMATOCRIT 40.1 % (38.2-49.6); HEMOGLOBIN 13.5 g/dL (14.0-18.0); LYMPHOCYTES # (AUTO) 2.2 (1.0-3.2); LYMPHOCYTES % 21.6 % (18.0-39.1); MEAN CORPUSCULAR HEMOGLOBIN 28.2 pg (28-32); MEAN CORPUSCULAR HGB CONC 33.7 g/dL (31-35); MEAN CORPUSCULAR VOLUME 83.7 fL (81-99); MONOCYTES # (AUTO) 0.7 (0.2-0.8); MONOCYTES % 6.5 % (4.4-11.3); NEUTROPHILS # (AUTO) 6.8 (2.1-6.9); NEUTROPHILS % 66.8 % (38.7-80.0); PLATELET COUNT 318 x10e3/uL (140-360); RED BLOOD COUNT 4.79 x10e6/uL (4.3-5.7); RED CELL DISTRIBUTION WIDTH 12.7 % (11.7-14.4); WHITE BLOOD COUNT 10.14 x10e3/uL (4.8-10.8)
[2025-03-21 20:28] LABS: ALBUMIN 3.2 g/dL (3.5-5.0); ALBUMIN/GLOBULIN RATIO 0.7 (0.8-2.0); ANION GAP 14.8 mmol/L (8-16); BILIRUBIN,TOTAL 0.3 mg/dL (0.2-1.2); CALCIUM 9.2 mg/dL (8.4-10.2); CREATININE, SERUM 1.09 mg/dL (0.72-1.25); POTASSIUM 3.8 mmol/L (3.5-5.1); TOTAL PROTEIN 7.9 g/dL (6.5-8.1)
[2025-03-21 20:30] VITALS: PULSE 96; RESP 10
[2025-03-21] MEDS: ONDANSETRON HCL INJ 2MG/ML 2ML 2 MG/ML VIAL IV STA (20:40)
[2025-03-21] MEDS: Morphine 4mg INJECTION 4 MG/ML INJ IV STA (20:40)
[2025-03-21 22:45] VITALS: BP 123/78; PULSE 83; RESP 18; TEMP 98; TEMP 98.3; O2SAT 99
[2025-03-21] MEDS ORDERED: PANTOPRAZOLE SO40 MG PO (22:55)
[2025-03-21 23:00] VITALS: BP 123/78; PULSE 83; RESP 18; TEMP 98.3; O2SAT 99
[2025-03-22] VITALS (7 sets, daily range): BP systolic 121–133; BP diastolic 71–86; PULSE 80–93; RESP 18–20; TEMP 97.6–97.9; O2SAT 98–100
[2025-03-22] MEDS: ONDANSETRON HCL INJ 2MG/ML 2ML 2 MG/ML VIAL IV PRN (00:31)
[2025-03-22] MEDS: Morphine 4mg INJECTION 4 MG/ML INJ IV PRN (00:31)
[2025-03-22 05:11] LABS: BASOPHILS # (AUTO) 0.1 (0.0-0.1); BASOPHILS % 1.3 % (0.0-1.0); EOSINOPHILS # (AUTO) 0.4 (0.0-0.4); EOSINOPHILS % 5.1 % (0.0-6.0); HEMATOCRIT 39.1 % (38.2-49.6); HEMOGLOBIN 13.2 g/dL (14.0-18.0); LYMPHOCYTES # (AUTO) 2.5 (1.0-3.2); LYMPHOCYTES % 30.3 % (18.0-39.1); MEAN CORPUSCULAR HEMOGLOBIN 28.6 pg (28-32); MEAN CORPUSCULAR HGB CONC 33.8 g/dL (31-35); MEAN CORPUSCULAR VOLUME 84.6 fL (81-99); MONOCYTES # (AUTO) 0.6 (0.2-0.8); MONOCYTES % 7.2 % (4.4-11.3); NEUTROPHILS # (AUTO) 4.6 (2.1-6.9); NEUTROPHILS % 55.7 % (38.7-80.0); PLATELET COUNT 303 x10e3/uL (140-360); RED BLOOD COUNT 4.62 x10e6/uL (4.3-5.7); RED CELL DISTRIBUTION WIDTH 12.9 % (11.7-14.4); WHITE BLOOD COUNT 8.29 x10e3/uL (4.8-10.8)
[2025-03-22 05:43] LABS: ALBUMIN/GLOBULIN RATIO 0.7 (0.8-2.0); ANION GAP 14.8 mmol/L (8-16); BILIRUBIN,TOTAL 0.4 mg/dL (0.2-1.2); CALCIUM 8.9 mg/dL (8.4-10.2); CREATININE, SERUM 1.13 mg/dL (0.72-1.25); POTASSIUM 3.8 mmol/L (3.5-5.1); TOTAL PROTEIN 7.4 g/dL (6.5-8.1)
[2025-03-22] MEDS ORDERED: GADOBENATE DIMEGLUMINE 1 ML IV ONE (08:59)
[2025-03-22] MEDS: PANTOPRAZOLE SOD 40 MG TABEC PO SCH (10:35)
[2025-03-22] MEDS: DIPHENHYDRAMINE HCL 25 MG CAP PO PRN (19:49)
[2025-03-23 05:18] VITALS: BP 104/62; PULSE 81; RESP 19; TEMP 97.5; O2SAT 98
[2025-03-23 08:18] VITALS: BP 115/67; PULSE 88; RESP 20; TEMP 97; O2SAT 100
[2025-03-23 09:43] VITALS: BP 115/67; PULSE 88; RESP 20; TEMP 97; O2SAT 100
[2025-03-23 12:13] VITALS: BP 125/77; PULSE 84; RESP 20; TEMP 98; O2SAT 100
[2025-03-23 16:39] VITALS: BP 129/73; PULSE 94; RESP 20; TEMP 98.1; O2SAT 98
[2025-03-23 20:00] VITALS: BP 111/69; PULSE 100; RESP 18; TEMP 97.5; O2SAT 100
[2025-03-23] MEDS: MEROPENEM 1 GM in SODIUM CHLORIDE 0.9% 100 ML IV SCH (22:33)
[2025-03-24] VITALS (7 sets, daily range): BP systolic 104–123; BP diastolic 60–75; PULSE 80–99; RESP 18–20; TEMP 97.5–98.4; O2SAT 94–100
[2025-03-24] MEDS ORDERED: PROPOFOL IV EMULSION 10 MG/ML 20 ML VIAL ONE (12:13)
[2025-03-24] MEDS ORDERED: LIDOCAINE HCL 2% LOCAL INJ 5 ML SDV VIAL INJ ONE (12:13)
[2025-03-24] MEDS ORDERED: FENTANYL CITRATE/PF 100MCG/2 ML INJ ONE (13:52)
[2025-03-24] MEDS ORDERED: DEXAMETHASONE SOD PHOS INJ 4 MG/ML SDV ONE (14:04)
[2025-03-24] MEDS ORDERED: FAMOTIDINE 20 MG/2 ML VIAL IV ONE (14:04)
[2025-03-24] MEDS ORDERED: ONDANSETRON HCL INJ 2MG/ML 2ML 2 MG/ML VIAL ONE (14:04)
[2025-03-24] MEDS: FENTANYL CITRATE/PF 100MCG/2 ML INJ ONE (15:10)
[2025-03-24] MEDS: HYDROCODONE/APAP 5MG-325MG TAB PO PRN (19:12)
[2025-03-25] VITALS (9 sets, daily range): BP systolic 115–165; BP diastolic 66–88; PULSE 69–102; RESP 18–20; TEMP 97.3–98.2; O2SAT 98–100
[2025-03-25 08:32] LABS: BASOPHILS % 0.1 % (0.0-1.0); EOSINOPHILS % 0.1 % (0.0-6.0); HEMATOCRIT 44.8 % (38.2-49.6); HEMOGLOBIN 14.7 g/dL (14.0-18.0); LYMPHOCYTES # (AUTO) 1.2 (1.0-3.2); LYMPHOCYTES % 10.3 % (18.0-39.1); MEAN CORPUSCULAR HEMOGLOBIN 28.5 pg (28-32); MEAN CORPUSCULAR HGB CONC 32.8 g/dL (31-35); MEAN CORPUSCULAR VOLUME 86.8 fL (81-99); MONOCYTES # (AUTO) 0.5 (0.2-0.8); MONOCYTES % 4.7 % (4.4-11.3); NEUTROPHILS # (AUTO) 9.5 (2.1-6.9); NEUTROPHILS % 84.1 % (38.7-80.0); PLATELET COUNT 312 x10e3/uL (140-360); RED BLOOD COUNT 5.16 x10e6/uL (4.3-5.7); RED CELL DISTRIBUTION WIDTH 12.4 % (11.7-14.4); WHITE BLOOD COUNT 11.34 x10e3/uL (4.8-10.8)
[2025-03-25 08:45] LABS: ANION GAP 15.9 mmol/L (8-16); CALCIUM 9.2 mg/dL (8.4-10.2); CREATININE, SERUM 1.32 mg/dL (0.72-1.25); POTASSIUM 4.9 mmol/L (3.5-5.1)
[2025-03-25] MEDS ORDERED: DEXTROSE 50% SYRINGE 50 ML IV PRN (12:00)
[2025-03-25] MEDS: INSULIN LISPRO 100 UNIT/1 ML 3ML VIAL SQ SCH (17:25)
[2025-03-26] VITALS (7 sets, daily range): BP systolic 101–153; BP diastolic 59–95; PULSE 74–85; RESP 17–20; TEMP 97.5–98.2; O2SAT 97–100
[2025-03-26 07:56] LABS: BASOPHILS # (AUTO) 0.1 (0.0-0.1); BASOPHILS % 0.5 % (0.0-1.0); EOSINOPHILS # (AUTO) 0.3 (0.0-0.4); EOSINOPHILS % 2.6 % (0.0-6.0); HEMATOCRIT 41.3 % (38.2-49.6); HEMOGLOBIN 13.7 g/dL (14.0-18.0); LYMPHOCYTES # (AUTO) 2.5 (1.0-3.2); MEAN CORPUSCULAR HEMOGLOBIN 28.4 pg (28-32); MEAN CORPUSCULAR HGB CONC 33.2 g/dL (31-35); MEAN CORPUSCULAR VOLUME 85.5 fL (81-99); MONOCYTES # (AUTO) 0.7 (0.2-0.8); MONOCYTES % 7.2 % (4.4-11.3); NEUTROPHILS % 63.1 % (38.7-80.0); PLATELET COUNT 291 x10e3/uL (140-360); RED BLOOD COUNT 4.83 x10e6/uL (4.3-5.7); RED CELL DISTRIBUTION WIDTH 12.4 % (11.7-14.4); WHITE BLOOD COUNT 9.58 x10e3/uL (4.8-10.8)
[2025-03-26] MEDS: INSULIN GLARGINE 100 UNITS/ML VIAL SQ SCH (16:25)
[2025-03-27] VITALS: BP 112/74; PULSE 83; RESP 18; TEMP 96.5; O2SAT 99
[2025-03-27 04:00] VITALS: BP 112/68; PULSE 80; RESP 18; TEMP 97.2; O2SAT 99
[2025-03-27 08:00] VITALS: BP 124/80; PULSE 92; RESP 18; TEMP 97.4; O2SAT 100
[2025-03-27 09:00] VITALS: BP 124/80; PULSE 92; RESP 18; TEMP 97.4; O2SAT 100
[2025-03-27] MEDS: HYDROCODONE/APAP 10MG-325MG TAB PO PRN (09:07)
[2025-03-27 10:21] LABS: INR 0.93
[2025-03-27] MEDS ORDERED: MIDAZOLAM HCL 2 MG/2 ML VIAL ONE (10:56)
[2025-03-27] MEDS ORDERED: FENTANYL CITRATE/PF 100MCG/2 ML INJ ONE (10:57)
[2025-03-27] MEDS ORDERED: SODIUM CHLORIDE 0.9% 250ML 500 ML ONE (10:57)
[2025-03-27 12:00] VITALS: BP 115/81; PULSE 89; RESP 19; TEMP 98.2; O2SAT 97
[2025-03-27 16:00] VITALS: BP 119/74; PULSE 81; RESP 18; TEMP 97.7; O2SAT 98
== END 2025-03-27 19:00 | disposition home health service (06) | DRG 623 ==
LOC: ER 19:38 → ERHOLD 21:12 → MED/SURG 22:50
PROVIDERS: ADMIT Internal Medicine; ATTEND Internal Medicine
PROC: 0QBP0ZX Excision of Left Metatarsal, Open Approach, Diagnostic (ICD-10-PCS; 2025-03-24)
PROC: 0JBQ0ZZ Excision of Right Foot Subcutaneous Tissue and Fascia, Open Approach (ICD-10-PCS; 2025-03-24)
PROC: 0QBP0ZZ Excision of Left Metatarsal, Open Approach (ICD-10-PCS; principal; 2025-03-24 12:30)
PROC: 0JH63XZ Insertion of Tunneled Vascular Access Device into Chest Subcutaneous Tissue and Fascia, Percutaneous Approach (ICD-10-PCS; 2025-03-27)
PROC: 02H633Z Insertion of Infusion Device into Right Atrium, Percutaneous Approach (ICD-10-PCS; 2025-03-27)
PROC: B5181ZA Fluoroscopy of Superior Vena Cava using Low Osmolar Contrast, Guidance (ICD-10-PCS; 2025-03-27)
PROC: B548ZZA Ultrasonography of Superior Vena Cava, Guidance (ICD-10-PCS; 2025-03-27)
DX: E11.69 Type 2 diabetes mellitus with other specified complication (principal); E11.52 Type 2 diabetes mellitus with diabetic peripheral angiopathy with gangrene; L02.612 Cutaneous abscess of left foot; M86.8X7 Other osteomyelitis, ankle and foot; L03.116 Cellulitis of left lower limb; L97.426 Non-pressure chronic ulcer of left heel and midfoot with bone involvement without evidence of necrosis; L97.412 Non-pressure chronic ulcer of right heel and midfoot with fat layer exposed; I70.262 Atherosclerosis of native arteries of extremities with gangrene, left leg; L02.611 Cutaneous abscess of right foot; L03.115 Cellulitis of right lower limb; L97.519 Non-pressure chronic ulcer of other part of right foot with unspecified severity; E11.621 Type 2 diabetes mellitus with foot ulcer; E11.40 Type 2 diabetes mellitus with diabetic neuropathy, unspecified; Z79.4 Long term (current) use of insulin; Z79.84 Long term (current) use of oral hypoglycemic drugs; I10 Essential (primary) hypertension; D64.9 Anemia, unspecified; K21.9 Gastro-esophageal reflux disease without esophagitis; Z91.148 Patient's other noncompliance with medication regimen for other reason; E66.01 Morbid (severe) obesity due to excess calories; Z68.36 Body mass index [BMI] 36.0-36.9, adult; Z71.3 Dietary counseling and surveillance; Z89.422 Acquired absence of other left toe(s); Z79.899 Other long term (current) drug therapy
CPT/HCPCS: 36415; 36558; 74470; 76937; 77001; 80048; 80053; 85025; 85610; 87071; 87075; 87205; 88304; 88307; 88311; 99152; 99252; 99284; C1751; C1769; J1100; J1308; J1815; J2003; J2185; J2250; J2270; J2405; J2470; J2543; J7050

== ENCOUNTER → 2025-04-28 | Outpatient (REF) | payer BC ==
[~2025-04-28] MED LIST changes: +PANTOPRAZOLE SO40 MG PO
== END ==
LOC: WCC 14:36
PROVIDERS: ATTEND Plastic Surgery
DX: E11.621 Type 2 diabetes mellitus with foot ulcer (principal); L89.891 Pressure ulcer of other site, stage 1; L89.896 Pressure-induced deep tissue damage of other site; L97.418 Non-pressure chronic ulcer of right heel and midfoot with other specified severity; L97.422 Non-pressure chronic ulcer of left heel and midfoot with fat layer exposed

== ENCOUNTER → 2025-05-08 | Outpatient (REF) | payer BC | LOC: WCC 09:09 | PROVIDERS: ATTEND Plastic Surgery | DX: E11.621 Type 2 diabetes mellitus with foot ulcer (principal); L89.891 Pressure ulcer of other site, stage 1; L97.418 Non-pressure chronic ulcer of right heel and midfoot with other specified severity ==

== ENCOUNTER → 2025-05-10 | Outpatient (REF) | payer BC ==
[~2025-05-10] MED LIST changes: +CLOTRIMAZOLE/BETAMETHASONE 45 GM CR TP ONE
== END ==
LOC: WCC 09:02
PROVIDERS: ATTEND Plastic Surgery
DX: E11.621 Type 2 diabetes mellitus with foot ulcer (principal); L89.891 Pressure ulcer of other site, stage 1; L89.896 Pressure-induced deep tissue damage of other site; L97.418 Non-pressure chronic ulcer of right heel and midfoot with other specified severity

== ENCOUNTER → 2025-05-12 | Outpatient (REF) | payer BC ==
[~2025-05-12] MED LIST changes: -CLOTRIMAZOLE/BETAMETHASONE 45 GM CR TP ONE
== END ==
LOC: WCC 11:38
PROVIDERS: ATTEND Plastic Surgery
DX: E11.621 Type 2 diabetes mellitus with foot ulcer (principal); L89.891 Pressure ulcer of other site, stage 1; L89.896 Pressure-induced deep tissue damage of other site; L97.422 Non-pressure chronic ulcer of left heel and midfoot with fat layer exposed; L97.418 Non-pressure chronic ulcer of right heel and midfoot with other specified severity

== ENCOUNTER → 2025-05-15 | Outpatient (REF) | payer BC | LOC: WCC 09:27 | PROVIDERS: ATTEND Plastic Surgery | DX: E11.621 Type 2 diabetes mellitus with foot ulcer (principal); L89.891 Pressure ulcer of other site, stage 1; L89.896 Pressure-induced deep tissue damage of other site; L97.422 Non-pressure chronic ulcer of left heel and midfoot with fat layer exposed; L97.418 Non-pressure chronic ulcer of right heel and midfoot with other specified severity ==

== ENCOUNTER → 2025-05-17 | Outpatient (REF) | payer BC | LOC: WCC 11:29 | PROVIDERS: ATTEND Nurse Practitioner Family | DX: E11.621 Type 2 diabetes mellitus with foot ulcer (principal); L89.891 Pressure ulcer of other site, stage 1; L89.896 Pressure-induced deep tissue damage of other site; L97.422 Non-pressure chronic ulcer of left heel and midfoot with fat layer exposed; L97.418 Non-pressure chronic ulcer of right heel and midfoot with other specified severity ==

== ENCOUNTER → 2025-05-19 | Outpatient (REF) | payer BC | LOC: WCC 11:42 | PROVIDERS: ATTEND Plastic Surgery | DX: E11.621 Type 2 diabetes mellitus with foot ulcer (principal); L89.891 Pressure ulcer of other site, stage 1; L89.896 Pressure-induced deep tissue damage of other site; L97.422 Non-pressure chronic ulcer of left heel and midfoot with fat layer exposed; L97.418 Non-pressure chronic ulcer of right heel and midfoot with other specified severity ==

== ENCOUNTER → 2025-05-24 | Outpatient (REF) | payer BC | LOC: WCC 08:49 | PROVIDERS: ATTEND Plastic Surgery | DX: E11.621 Type 2 diabetes mellitus with foot ulcer (principal); L89.891 Pressure ulcer of other site, stage 1; L89.896 Pressure-induced deep tissue damage of other site; L97.422 Non-pressure chronic ulcer of left heel and midfoot with fat layer exposed; L97.418 Non-pressure chronic ulcer of right heel and midfoot with other specified severity ==

== ENCOUNTER → 2025-05-26 | Outpatient (REF) | payer BC | LOC: WCC 12:14 | PROVIDERS: ATTEND Plastic Surgery | DX: E11.621 Type 2 diabetes mellitus with foot ulcer (principal); L97.422 Non-pressure chronic ulcer of left heel and midfoot with fat layer exposed; L97.418 Non-pressure chronic ulcer of right heel and midfoot with other specified severity ==

== ENCOUNTER → 2025-05-29 | Outpatient (REF) | payer BC ==
[~2025-05-29] MED LIST changes: +MINERAL OIL/PETROLAT/GLYCERI 6OZ BTL ONE
== END ==
LOC: WCC 10:06
PROVIDERS: ATTEND Plastic Surgery
DX: E11.621 Type 2 diabetes mellitus with foot ulcer (principal); L89.891 Pressure ulcer of other site, stage 1; L89.896 Pressure-induced deep tissue damage of other site; L97.422 Non-pressure chronic ulcer of left heel and midfoot with fat layer exposed; L97.418 Non-pressure chronic ulcer of right heel and midfoot with other specified severity

== ENCOUNTER → 2025-06-01 | Outpatient (REF) | payer BC ==
[~2025-06-01] MED LIST changes: -MINERAL OIL/PETROLAT/GLYCERI 6OZ BTL ONE
== END ==
LOC: WCC 15:15
PROVIDERS: ATTEND Plastic Surgery
DX: E11.621 Type 2 diabetes mellitus with foot ulcer (principal); L89.891 Pressure ulcer of other site, stage 1; L89.896 Pressure-induced deep tissue damage of other site; L97.418 Non-pressure chronic ulcer of right heel and midfoot with other specified severity; L97.422 Non-pressure chronic ulcer of left heel and midfoot with fat layer exposed

== ENCOUNTER → 2025-06-05 | Outpatient (REF) | payer BC | LOC: DX 09:27 | PROVIDERS: ATTEND Internal Medicine Infectious Disease | DX: Z45.2 Encounter for adjustment and management of vascular access device (principal); M86.272 Subacute osteomyelitis, left ankle and foot | CPT/HCPCS: 36589 ==

== ENCOUNTER → 2025-06-05 | Outpatient (REF) | payer BC | LOC: WCC 09:00 | PROVIDERS: ATTEND Plastic Surgery | DX: E11.621 Type 2 diabetes mellitus with foot ulcer (principal); L89.891 Pressure ulcer of other site, stage 1; L89.896 Pressure-induced deep tissue damage of other site; L97.422 Non-pressure chronic ulcer of left heel and midfoot with fat layer exposed; L97.418 Non-pressure chronic ulcer of right heel and midfoot with other specified severity ==

== ENCOUNTER → 2025-06-07 | Outpatient (REF) | payer BC | LOC: WCC 11:58 | PROVIDERS: ATTEND Plastic Surgery | DX: E11.621 Type 2 diabetes mellitus with foot ulcer (principal); L89.891 Pressure ulcer of other site, stage 1; L89.896 Pressure-induced deep tissue damage of other site; L97.422 Non-pressure chronic ulcer of left heel and midfoot with fat layer exposed; L97.418 Non-pressure chronic ulcer of right heel and midfoot with other specified severity ==

== ENCOUNTER → 2025-06-12 | Outpatient (REF) | payer BC | LOC: WCC 09:17 | PROVIDERS: ATTEND Plastic Surgery | DX: E11.621 Type 2 diabetes mellitus with foot ulcer (principal); L89.891 Pressure ulcer of other site, stage 1; L89.896 Pressure-induced deep tissue damage of other site; L97.422 Non-pressure chronic ulcer of left heel and midfoot with fat layer exposed; L97.418 Non-pressure chronic ulcer of right heel and midfoot with other specified severity ==

== ENCOUNTER → 2025-06-14 | Outpatient (REF) | payer BC | LOC: WCC 10:00 | PROVIDERS: ATTEND Nurse Practitioner Family | DX: E11.621 Type 2 diabetes mellitus with foot ulcer (principal); L89.891 Pressure ulcer of other site, stage 1; L89.896 Pressure-induced deep tissue damage of other site; L97.422 Non-pressure chronic ulcer of left heel and midfoot with fat layer exposed; L97.418 Non-pressure chronic ulcer of right heel and midfoot with other specified severity ==

== ENCOUNTER → 2025-06-16 | Outpatient (REF) | payer BC | LOC: WCC 10:27 | PROVIDERS: ATTEND Nurse Practitioner Family | DX: E11.621 Type 2 diabetes mellitus with foot ulcer (principal); E11.65 Type 2 diabetes mellitus with hyperglycemia; L89.891 Pressure ulcer of other site, stage 1; L89.896 Pressure-induced deep tissue damage of other site; L97.422 Non-pressure chronic ulcer of left heel and midfoot with fat layer exposed; L97.418 Non-pressure chronic ulcer of right heel and midfoot with other specified severity; I10 Essential (primary) hypertension; F06.4 Anxiety disorder due to known physiological condition; Z01.810 Encounter for preprocedural cardiovascular examination ==

== ENCOUNTER → 2025-06-21 | Outpatient (REF) | payer BC ==
[2025-06-21 11:48] LABS: BASOPHILS % 0.7 % (0.0-1.0); EOSINOPHILS % 2.5 % (0.0-6.0); LYMPHOCYTES % 22.2 % (18.0-39.1); MONOCYTES % 6.0 % (4.4-11.3); NEUTROPHILS % 68.3 % (38.7-80.0); RED CELL DISTRIBUTION WIDTH 13.2 % (11.7-14.4)
[2025-06-21 12:16] LABS: EST GLOMERULAR FILTRATION RATE 64.0 ML/MIN (>=60)
== END ==
LOC: WCC 09:26
PROVIDERS: ATTEND Nurse Practitioner Family
DX: E11.621 Type 2 diabetes mellitus with foot ulcer (principal); L89.891 Pressure ulcer of other site, stage 1; L89.896 Pressure-induced deep tissue damage of other site; L97.422 Non-pressure chronic ulcer of left heel and midfoot with fat layer exposed; L97.418 Non-pressure chronic ulcer of right heel and midfoot with other specified severity
CPT/HCPCS: 36415; 80053; 83036; 84134; 85025

== ENCOUNTER → 2025-06-26 | Outpatient (REF) | payer BC | LOC: WCC 13:53 | PROVIDERS: ATTEND Nurse Practitioner Family | DX: E11.621 Type 2 diabetes mellitus with foot ulcer (principal); L89.891 Pressure ulcer of other site, stage 1; L89.896 Pressure-induced deep tissue damage of other site; L97.422 Non-pressure chronic ulcer of left heel and midfoot with fat layer exposed; L97.418 Non-pressure chronic ulcer of right heel and midfoot with other specified severity ==

== ENCOUNTER → 2025-06-29 | Outpatient (REF) | payer BC | LOC: WCC 12:46 | PROVIDERS: ATTEND Nurse Practitioner Family | DX: E11.621 Type 2 diabetes mellitus with foot ulcer (principal); L89.891 Pressure ulcer of other site, stage 1; L89.896 Pressure-induced deep tissue damage of other site; L97.422 Non-pressure chronic ulcer of left heel and midfoot with fat layer exposed; L97.418 Non-pressure chronic ulcer of right heel and midfoot with other specified severity | CPT/HCPCS: 15275; 97605; 99213; Q4101 ×2 ==

== ENCOUNTER → 2025-07-05 | Outpatient (REF) | payer BC | LOC: WCC 15:30 | PROVIDERS: ATTEND Plastic Surgery | DX: E11.621 Type 2 diabetes mellitus with foot ulcer (principal); L97.418 Non-pressure chronic ulcer of right heel and midfoot with other specified severity | CPT/HCPCS: 15275; 99212; Q4101 ×2 ==

== ENCOUNTER → 2025-07-12 | Outpatient (REF) | payer BC | LOC: WCC 13:00 | PROVIDERS: ATTEND Plastic Surgery | DX: E11.621 Type 2 diabetes mellitus with foot ulcer (principal); L97.422 Non-pressure chronic ulcer of left heel and midfoot with fat layer exposed; L97.418 Non-pressure chronic ulcer of right heel and midfoot with other specified severity | CPT/HCPCS: 15275; 99212; Q4101 ×2 ==

== ENCOUNTER → 2025-07-19 | Outpatient (REF) | payer BC | LOC: WCC 10:37 | PROVIDERS: ATTEND Nurse Practitioner Family | DX: E11.621 Type 2 diabetes mellitus with foot ulcer (principal); L97.422 Non-pressure chronic ulcer of left heel and midfoot with fat layer exposed; L97.418 Non-pressure chronic ulcer of right heel and midfoot with other specified severity | CPT/HCPCS: 15275; 99212; Q4101 ×2 ==

== ENCOUNTER → 2025-07-26 | Outpatient (REF) | payer BC | LOC: WCC 13:02 | PROVIDERS: ATTEND Nurse Practitioner Family | DX: E11.621 Type 2 diabetes mellitus with foot ulcer (principal); L97.422 Non-pressure chronic ulcer of left heel and midfoot with fat layer exposed; L97.418 Non-pressure chronic ulcer of right heel and midfoot with other specified severity | CPT/HCPCS: 15275; 99212; Q4101 ×2 ==

== ENCOUNTER → 2025-08-03 | Outpatient (REF) | payer BC | LOC: WCC 14:11 | PROVIDERS: ATTEND Plastic Surgery | DX: E11.621 Type 2 diabetes mellitus with foot ulcer (principal); L97.422 Non-pressure chronic ulcer of left heel and midfoot with fat layer exposed; L97.418 Non-pressure chronic ulcer of right heel and midfoot with other specified severity ==

== ENCOUNTER → 2025-08-07 | Outpatient (REF) | payer BC | LOC: WCC 15:05 | PROVIDERS: ATTEND Plastic Surgery | DX: E11.621 Type 2 diabetes mellitus with foot ulcer (principal); L97.422 Non-pressure chronic ulcer of left heel and midfoot with fat layer exposed; L97.418 Non-pressure chronic ulcer of right heel and midfoot with other specified severity ==

== ENCOUNTER → 2025-08-11 | Outpatient (REF) | payer BC | LOC: WCC 12:43 | PROVIDERS: ATTEND Internal Medicine Infectious Disease | DX: E11.621 Type 2 diabetes mellitus with foot ulcer (principal); L97.422 Non-pressure chronic ulcer of left heel and midfoot with fat layer exposed; L97.418 Non-pressure chronic ulcer of right heel and midfoot with other specified severity ==

== ENCOUNTER → 2025-08-21 | Outpatient (REF) | payer BC | LOC: WCC 11:14 | PROVIDERS: ATTEND Internal Medicine Infectious Disease | DX: E11.621 Type 2 diabetes mellitus with foot ulcer (principal); L97.422 Non-pressure chronic ulcer of left heel and midfoot with fat layer exposed; L97.418 Non-pressure chronic ulcer of right heel and midfoot with other specified severity | CPT/HCPCS: 87071; 87075; 87205 ==

== ENCOUNTER → 2025-08-28 | Outpatient (REF) | payer BC | LOC: WCC 13:14 | PROVIDERS: ATTEND Internal Medicine Infectious Disease | DX: E11.621 Type 2 diabetes mellitus with foot ulcer (principal); L97.422 Non-pressure chronic ulcer of left heel and midfoot with fat layer exposed | CPT/HCPCS: 15271; 99212; Q4133 ==

== ENCOUNTER → 2025-09-01 | Outpatient (REF) | payer BC | LOC: WCC 14:48 | PROVIDERS: ATTEND Plastic Surgery | DX: E11.621 Type 2 diabetes mellitus with foot ulcer (principal); L97.422 Non-pressure chronic ulcer of left heel and midfoot with fat layer exposed ==

== ENCOUNTER → 2025-09-11 | Outpatient (REF) | payer BC | LOC: WCC 13:22 | PROVIDERS: ATTEND Internal Medicine Infectious Disease | DX: E11.621 Type 2 diabetes mellitus with foot ulcer (principal); L97.422 Non-pressure chronic ulcer of left heel and midfoot with fat layer exposed ==

== ENCOUNTER → 2025-09-18 | Outpatient (REF) | payer BC | LOC: WCC 11:20 | PROVIDERS: ATTEND Internal Medicine Infectious Disease | DX: E11.621 Type 2 diabetes mellitus with foot ulcer (principal); L97.422 Non-pressure chronic ulcer of left heel and midfoot with fat layer exposed ==